=== PATIENT | female | born 1965 | race Caucasian/White ===

== ENCOUNTER → 2017-06-18 10:22 | Outpatient (CLI) | payer BC, SELFPAY ==
--- NOTE | 2017-06-18 10:25 | MM_ITS ---
MM Dig screening mamm BI w/CAD CAD Screening COMPARISON: Digital mammograms 05/26/2016 INDICATION: There is a history of breast cancer in patient's grandmother and mother both diagnosed after menopause TECHNIQUE: Standard CC and MLO images were obtained. R2 CAD reviewed. FINDINGS: Moderate scattered fiber glandular densities are seen in central portions of both breast. There are couple benign-appearing calcifications in both breasts. There is no suspicious lesion and no suspicious microcalcifications.. IMPRESSION: Fibrofatty parenchyma no suspicious lesion seen, recommend yearly follow-up BI-RADS Category: 2 Benign Finding(s) RECOMMENDED FOLLOW-UP: 1YR - 1 YEAR FOLLOW-UP (A letter has been sent to the patient regarding results of the study.)
== END ==
PROVIDERS: Family Provider Nurse Practitioner Family; PCP Nurse Practitioner Family; Visit Provider Nurse Practitioner Family
DX: Z12.31 Encounter for screening mammogram for malignant neoplasm of breast (principal)
CPT/HCPCS: 77067

== ENCOUNTER → 2017-08-02 13:56 | Outpatient (CLI) | payer BC, SELFPAY ==
[2017-08-02 15:33] LABS: Free T4 (Free Thyroxine) 1.33 ng/dl (0.76-1.46)
[2017-08-06 13:27] LABS: Thyroid Peroxidase Antibodies 86 IU/mL (0-34)
[2017-08-06 13:31] LABS: Thyroid Stimulating Immunoglob <0.10 IU/L (0.00-0.55)
== END ==
PROVIDERS: Family Provider Nurse Practitioner Family; PCP Nurse Practitioner Family; Visit Provider Otolaryngology
DX: E03.9 Hypothyroidism, unspecified (principal); E04.9 Nontoxic goiter, unspecified
CPT/HCPCS: 36415; 83520; 84439; 84443; 86376

== ENCOUNTER → 2017-08-10 13:19 | Outpatient (CLI) | payer BC, SELFPAY ==
--- NOTE | 2017-08-10 13:24 | US_ITS ---
US thyroid HISTORY: Follow-up thyroid nodule/goiter ITS.REASON: goiter ORDERING PHYSICIAN: Andrea Ron MD PATIENT AGE: 52 years Comparison: 06/22/2012 FINDINGS: The right lobe is 2.4 x 1.0 x 0.9 cm. 1 cm solid-appearing fairly well-circumscribed nodule in the mid polar region unchanged. The left lobe is 2.8 x 1.0 x 1.1 cm. 7 mm solid appearing nodule superiorly previously measuring 14 mm. IMPRESSION: Bilateral thyroid nodules unchanged on the right and smaller on the left
== END ==
PROVIDERS: Family Provider Nurse Practitioner Family; PCP Nurse Practitioner Family; Visit Provider Otolaryngology
DX: E03.9 Hypothyroidism, unspecified (principal); E04.9 Nontoxic goiter, unspecified
CPT/HCPCS: 76536

== ENCOUNTER → 2017-09-15 11:50 | Outpatient (CLI) | payer BC, SELFPAY ==
[2017-09-15 12:43] LABS: Alanine Aminotransferase 41 U/L (12-78); Albumin Level 4.2 gm/dL (3.4-5.0); Alkaline Phosphatase 88 U/L (46-116); Aspartate Amino Transferase 24 U/L (15-37); Bilirubin,Direct 0.1 mg/dL (0.0-0.2); Bilirubin,Indirect 0.3 mg/dL (0.0-0.9); Bilirubin,Total 0.4 mg/dL (0.2-1.0); Total Protein,Serum 6.9 gm/dL (6.4-8.2)
== END ==
PROVIDERS: Visit Provider Podiatrist
DX: Z79.899 Other long term (current) drug therapy (principal)
CPT/HCPCS: 36415; 80076

== ENCOUNTER → 2018-08-02 13:28 | Outpatient (CLI) | payer BC, SELFPAY ==
--- NOTE | 2018-08-02 13:30 | US_ITS ---
US thyroid HISTORY: ITS.REASON: goiter ORDERING PHYSICIAN: Andrea Ron MD PATIENT AGE: 53 years Comparison: 08/10/2017 FINDINGS: The right lobe measures 2.2 x 1 x 1 cm. There is a 4 mm hypoechoic nodule in the mid aspect of the right lobe. There is generalized heterogeneous echogenicity of the remaining right lobe. The nodule on the right is somewhat smaller when compared to the previous exam The left lobe is 2.9 x 0.9 x 1 cm. There is heterogeneous echogenicity. A 7 x 4 mm nodule is present in the upper pole which is isoechoic not significant change. The isthmus is unremarkable. IMPRESSION: Small bilateral thyroid with heterogeneous echogenicity. There is a stable nodule on the left and the nodule on the right is slightly decreased in size
== END ==
PROVIDERS: PCP Nurse Practitioner Family; Visit Provider Otolaryngology
DX: E04.1 Nontoxic single thyroid nodule (principal); E04.9 Nontoxic goiter, unspecified; E06.9 Thyroiditis, unspecified
CPT/HCPCS: 76536

== ENCOUNTER → 2018-08-08 13:55 | Outpatient (CLI) | payer BC, SELFPAY ==
[2018-08-08 14:42] LABS: Thyroid Stimulating Hormone 2.42 uIU/ml (0.358-3.740)
== END ==
PROVIDERS: Visit Provider Otolaryngology
DX: E04.1 Nontoxic single thyroid nodule (principal); E04.9 Nontoxic goiter, unspecified; E06.9 Thyroiditis, unspecified
CPT/HCPCS: 36415; 84439; 84443

== ENCOUNTER → 2018-09-14 09:54 | Outpatient (CLI) | payer BC, SELFPAY ==
--- NOTE | 2018-09-14 09:58 | MM_ITS ---
MM Dig screening mamm BI w/CAD ORDERING PHYSICIAN : Alissa Dotson APRN PATIENT AGE: 53 years GENDER: Female COMPARISON: May 2017, March 2015 INDICATION: Routine screening mammogram. No hormones. No new complaints. Family history. Mother and maternal grandmother with breast cancer. TECHNIQUE: Standard CC and MLO images were obtained. R2 CAD reviewed. Additional axillary cc views bilaterally. FINDINGS: Moderate breast density with fibroglandular elements most evident retroareolar region extending towards superior breast. Similar pattern to previous studies with no significant new areas of concern. No dominant or suspicious mass. No suspicious calcifications.. No significant change since previous studies listed Bilateral follow-up in one year ...IMPRESSION: ......... Stable bilateral mammogram. Follow-up in one year recommended BI-RADS Category: 1 Negative RECOMMENDED FOLLOW-UP: 1YR 1 YEAR FOLLOW-UP (A letter has been sent to the patient regarding results of the study.)
== END ==
PROVIDERS: PCP Nurse Practitioner Family; Visit Provider Nurse Practitioner Family
DX: Z12.31 Encounter for screening mammogram for malignant neoplasm of breast (principal)
CPT/HCPCS: 77067

== ENCOUNTER 2019-05-03 10:52 | Outpatient (RCR) | payer BC, SELFPAY | END 2019-05-03 11:57 | disposition home or self-care (01) | LOC: PT 10:52 | PROVIDERS: PCP Nurse Practitioner Family; Visit Provider Internal Medicine Rheumatology | DX: M70.61 Trochanteric bursitis, right hip (principal) | CPT/HCPCS: 97010; 97014; 97033; 97110; 97163; G0283 ==

== ENCOUNTER → 2019-08-01 14:23 | Outpatient (CLI) | payer BC, SELFPAY ==
--- NOTE | 2019-08-01 14:24 | US_ITS ---
PROCEDURE: US THYROID CLINICAL INDICATION: goiter Follow-up goiter COMPARISON: THY US thyroid from 08/10/2017 THY US thyroid from 08/02/2018 FINDINGS: Right lobe: 2.4 x 0.8 x 1.1 cm. A 1 x 0.5 cm slightly hypoechoic nodules present in the upper pole a significantly changed from 08/10/2017 Left lobe: 2.9 x 1.1 x 1 cm. 8 mm hypoechoic nodule upper pole unchanged There is bilateral heterogeneous echogenicity of the thyroid gland. Isthmus: Additional findings: IMPRESSION: Heterogeneous echotexture thyroid gland with stable bilateral nodules Dictated by: David Romero MD 08/01/2019 16:14 Electronically signed by David Romero MD in [place] 08/01/2019 16:14
[2019-08-01 17:10] LABS: Free T4 (Free Thyroxine) 1.32 ng/dl (0.78-2.19)
[2019-08-04 17:10] LABS: Thyroid Stimulating Immunoglob <0.10 IU/L (0.00-0.55)
== END ==
PROVIDERS: PCP Nurse Practitioner Family; Visit Provider Otolaryngology
DX: E03.9 Hypothyroidism, unspecified (principal); E04.9 Nontoxic goiter, unspecified
CPT/HCPCS: 36415; 76536; 84439; 84445

== ENCOUNTER → 2019-09-26 16:58 | Outpatient (CLI) | payer BC, SELFPAY ==
--- NOTE | 2019-09-26 17:00 | MM_ITS ---
PROCEDURE: MM DIG SCREENING MAMM BI W/CAD Digital Breast Tomosynthesis Included CLINICAL INDICATION: SCREENING There is a history of breast cancer patient's mother and maternal grandmother both diagnosed after menopause. COMPARISON: MG DMSB DIG MAMM-SCREEN JULIUS W/CAD from 05/26/2016 MG SCBI MM Dig screening mamm BI w/CAD from 06/18/2017 MG DIG MAMM-SCREEN JULIUS from 09/14/2018 TECHNIQUE: Standard CC and MLO images and 3D Tomosynthesis was obtained. R2 CAD reviewed. FINDINGS: Scattered fibroglandular densities are seen throughout both breasts. There are couple of benign-appearing microcalcifications in each breast. There is no new or suspicious lesion in either breast and no suspicious microcalcifications. IMPRESSION: Fibrofatty parenchyma with no suspicious lesions seen BI-RAD Category: 2 Benign Finding(s) FOLLOW-UP: 1YR 1 Year Follow-up (A letter has been sent to the patient regarding results of the study.) Dictated Dr. Richie Zarate MD 09/29/2019 12:21 Dr. Richie Nieves MD in [place] 09/29/2019 12:21
== END ==
PROVIDERS: PCP Nurse Practitioner Family; Visit Provider Nurse Practitioner Family
DX: Z12.31 Encounter for screening mammogram for malignant neoplasm of breast (principal)
CPT/HCPCS: 77063; 77067

== ENCOUNTER → 2019-12-13 17:54 | Outpatient (CLI) | payer BC, SELFPAY ==
--- NOTE | 2019-12-13 18:10 | XR_ITS ---
PROCEDURE: XR FOOT LT MIN 3V CLINICAL INDICATION: Posttraumatic pain COMPARISON: CR FTL3 FOOT-LT-3 VIEWS from 12/01/2016 FINDINGS: There is a nondisplaced fracture involving the mid aspect of the proximal phalanx of the 1st digit . 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 Other findings:None. IMPRESSION: Nondisplaced fracture proximal phalanx 1st digit Dictated by: David Romero MD 12/14/2019 05:31 David Romero MD in [place] 12/14/2019 05:31
== END ==
PROVIDERS: PCP Nurse Practitioner Family; Visit Provider Nurse Practitioner Family
DX: M79.672 Pain in left foot (principal)
CPT/HCPCS: 73630

== ENCOUNTER → 2020-01-22 09:05 | Outpatient (CLI) | payer BC, SELFPAY ==
--- NOTE | 2020-01-22 09:10 | XR_ITS ---
PROCEDURE: XR FOOT WT BEARING LT 3V CLINICAL INDICATION: fracture follow up COMPARISON: CR FTL3 FOOT-LT-3 VIEWS from 12/01/2016 CR XR FOOT LT MIN 3V from 12/13/2019 FINDINGS: There is a nondisplaced comminuted fracture involving the mid shaft of the proximal phalanx of the great toe. Fracture lines are less distinct suggesting healing. There is some developing callus formation noted. IMPRESSION: Healing nondisplaced fracture proximal phalanx great toe Dictated by: David Romero MD 01/22/2020 09:52 David Romero MD in [place] 01/22/2020 09:52
== END ==
PROVIDERS: PCP Nurse Practitioner Family; Visit Provider Podiatrist
DX: S92.412A Displaced fracture of proximal phalanx of left great toe, initial encounter for closed fracture (principal); T14.8XXA Other injury of unspecified body region, initial encounter
CPT/HCPCS: 73630

== ENCOUNTER → 2020-07-31 14:23 | Outpatient (CLI) | payer BC, SELFPAY ==
[2020-07-31 13:00] LABS: Free T4 (Free Thyroxine) 1.98 ng/dl (0.78-2.19)
[2020-07-31 13:14] LABS: Thyroid Stimulating Hormone 0.78 uIU/mL (0.465-4.68)
--- NOTE | 2020-07-31 14:23 | US_ITS ---
PROCEDURE: US THYROID CLINICAL INDICATION: thyroid nodule COMPARISON: US US THYROID from 08/01/2019 FINDINGS: Right lobe: 2.2 x 0.8 x 1.1 cm. There is diffuse heterogeneous echogenicity. 8 x 5 mm hypoechoic area in the mid polar region unchanged. 11 mm mixed nodular appearance in the mid polar region unchanged. Left lobe: 2.8 x 1.1 x 1.1 cm with heterogeneous echogenicity. 8 mm hypoechoic nodule upper pole unchanged Isthmus: Unremarkable Additional findings: IMPRESSION: No change diffuse heterogeneous echogenicity of the thyroid gland which is not enlarged with stable bilateral nodular appearing lesions Dictated by: David Romero MD 07/31/2020 17:50 David Romero MD in [place] 07/31/2020 17:50
[2020-08-01 09:26] LABS: Thyroid Peroxidase Antibodies 61 IU/mL (0-34)
[2020-08-03 09:14] LABS: Thyroid Stimulating Immunoglob <0.10 IU/L (0.00-0.55)
== END ==
PROVIDERS: PCP Nurse Practitioner Family; Visit Provider Otolaryngology
DX: E03.9 Hypothyroidism, unspecified (principal); E04.1 Nontoxic single thyroid nodule
CPT/HCPCS: 76536; 84439; 84443; 84445; 86376

== ENCOUNTER → 2020-10-07 15:25 | Outpatient (CLI) | payer BC, SELFPAY ==
--- NOTE | 2020-10-07 15:28 | MM_ITS ---
PROCEDURE: MM DIG SCREENING MAMM BI W/CAD Digital Breast Tomosynthesis Included CLINICAL INDICATION: SCREENING COMPARISON: MG SCBI MM Dig screening mamm BI w/CAD from 06/18/2017 MG DIG MAMM-SCREEN JULIUS from 09/14/2018 MG MM DIG SCREENING MAMM BI W/CAD from 09/26/2019 TECHNIQUE: Standard CC and MLO images and 3D Tomosynthesis was obtained. R2 CAD reviewed. FINDINGS: Average fibroglandular tissue. Bilateral benign-appearing calcifications. No suspicious appearing mass, malignant-appearing microcalcification, architectural distortion, or skin thickening.. No change IMPRESSION: Benign findings. No evidence of malignancy BI-RAD Category: 2 Benign Finding FOLLOW-UP: 1 YR 1 Year Follow-up (A letter has been sent to the patient regarding results of the study.) Dictated by: David Romero MD 10/11/2020 15:29 David Romero MD in [place] 10/11/2020 15:29
== END ==
PROVIDERS: PCP Nurse Practitioner Family; Visit Provider Nurse Practitioner Family
DX: Z12.31 Encounter for screening mammogram for malignant neoplasm of breast (principal)
CPT/HCPCS: 77063; 77067

== ENCOUNTER → 2021-02-20 12:28 | Outpatient (CLI) | payer BC, SELFPAY | PROVIDERS: Visit Provider Nurse Practitioner | DX: U07.1 COVID-19 (principal) | CPT/HCPCS: C9803; U0003; U0005 ==

== ENCOUNTER → 2021-10-08 16:49 | Outpatient (CLI) | payer BC, SELFPAY ==
--- NOTE | 2021-10-08 16:53 | MM_ITS ---
PROCEDURE INFORMATION: Exam: MG Bilateral Screening 3D Mammography Exam date and time: 10/08/2021 4:45 PM Age: 56 years old Clinical indication: Screening examination; Additional info: Routine screening. Family history of breast carcinoma. TECHNIQUE: Imaging protocol: Bilateral Screening tomosynthesis and 2D mammography including computer-aided detection (CAD) when performed. COMPARISON: 1. MG MM DIG SCREENING MAMM BI W/CAD 10/07/2020 3:37 PM 2. MG MM DIG SCREENING MAMM BI W/CAD 09/26/2019 5:05 PM 3. MG DIG MAMM-SCREEN JULIUS 09/14/2018 10:08 AM FINDINGS: MAMMOGRAPHY: Breast composition: There are scattered areas of fibroglandular density. Mass: No suspicious masses. Architectural distortion: No suspicious distortion. Calcifications: No suspicious calcifications. Asymmetric density: None. Skin thickening: None. Axillary adenopathy: None. IMPRESSION: No mammographic evidence of malignancy. Annual screening is recommended unless otherwise clinically indicated. ASSESSMENT: BI-RADS Category 1: Negative
== END ==
PROVIDERS: PCP Nurse Practitioner Family; Visit Provider Nurse Practitioner Family
DX: Z12.31 Encounter for screening mammogram for malignant neoplasm of breast (principal)
CPT/HCPCS: 77063; 77067

== ENCOUNTER → 2022-08-12 15:23 | Outpatient (CLI) | payer BC, SELFPAY ==
[2022-08-12 17:23] LABS: Free T4 (Free Thyroxine) 2.09 ng/dl (0.78-2.19)
[2022-08-12 17:37] LABS: Thyroid Stimulating Hormone 0.49 uIU/mL (0.465-4.68)
== END ==
PROVIDERS: PCP Nurse Practitioner Family; Visit Provider Student in an Organized Health Care Education/Training Program
DX: E03.9 Hypothyroidism, unspecified (principal); E04.2 Nontoxic multinodular goiter
CPT/HCPCS: 36415; 84439; 84443

== ENCOUNTER → 2022-09-03 15:59 | Outpatient (CLI) | payer BC, SELFPAY ==
--- NOTE | 2022-09-03 15:59 | US_ITS ---
FINAL REPORT TECHNIQUE: Limited sonographic images of the thyroid were obtained. CLINICAL HISTORY: multiple thryoid nodules and hypothyroidism COMPARISON: 07/31/2020 FINDINGS: US THYROID/HEAD OR NECK SOFT TISSUE The thyroid gland is small with decreased blood flow, may be related to chronic thyroiditis. The right lobe of the thyroid measures 2.2 x 0.7 x 1.1 cm. There is a solid, hypoechoic nodule measuring 6 x 6 x 4 mm consistent with TI-RADS category 4. The left lobe of the thyroid measures 2.6 x 0.9 x 1.1 cm. There is a solid, hypoechoic nodule measuring 7 x 5 x 5 mm consistent with TI-RADS category 4. IMPRESSION: Findings may be rate dated to chronic thyroiditis. Bilateral thyroid nodules, similar to previous. No follow-up is required. Reviewed, Interpreted and Dictated by Sebastián Tinoco III, MD Transcribed by Marlene Rowland Authenticated and [facility]
== END ==
LOC: RAD 15:59
PROVIDERS: PCP Nurse Practitioner Family; Visit Provider Student in an Organized Health Care Education/Training Program
DX: E03.9 Hypothyroidism, unspecified (principal); E04.2 Nontoxic multinodular goiter
CPT/HCPCS: 76536

== ENCOUNTER → 2022-11-04 16:23 | Outpatient (CLI) | payer BC, SELFPAY ==
--- NOTE | 2022-11-04 16:27 | MM_ITS ---
PROCEDURE INFORMATION: Exam: MG Bilateral Screening 3D Mammography Exam date and time: 11/04/2022 4:16 PM Age: 57 years old Clinical indication: Screening mammogram TECHNIQUE: Imaging protocol: Bilateral Screening tomosynthesis and 2D mammography including computer-aided detection (CAD) when performed. COMPARISON: 1. MG MM DIG SCREENING MAMM BI W/CAD 10/08/2021 4:45 PM 2. MG MM DIG SCREENING MAMM BI W/CAD 10/07/2020 3:37 PM 3. MG MM DIG SCREENING MAMM BI W/CAD 09/26/2019 5:05 PM 4. MG DIG MAMM-SCREEN JULIUS 09/14/2018 10:08 AM FINDINGS: MAMMOGRAPHY: Breast composition: There are scattered areas of fibroglandular density. Mass: None. Architectural distortion: No new or suspicious architectural distortion. Calcifications: No new or suspicious calcifications are present Asymmetric density: No new or suspicious asymmetric density is present Skin thickening: None. Axillary adenopathy: None. IMPRESSION: No mammographic evidence of malignancy. Recommend annual screening mammography unless otherwise clinically indicated. ASSESSMENT: BI-RADS category 1: Negative
== END ==
PROVIDERS: PCP Nurse Practitioner Family; Visit Provider Nurse Practitioner Family
DX: Z12.31 Encounter for screening mammogram for malignant neoplasm of breast (principal)
CPT/HCPCS: 77063; 77067

== ENCOUNTER 2023-09-09 15:22 | Outpatient (CLI) | payer BC, SELFPAY ==
--- NOTE | 2023-09-09 15:22 | US_ITS ---
FINAL REPORT TECHNIQUE: Sonographic images of the thyroid gland were obtained in the longitudinal and transverse planes. CLINICAL HISTORY: thyroid nodule COMPARISON: 09/03/2022 FINDINGS: The right lobe measures 2.4 cm. The right lobe is homogeneous. The nodule in the right lobe seen on the prior exam of 2022, hypoechoic, is slightly smaller. On today's exam this nodule measures 5 x 5 mm in size, previously measured 6 x 6 mm in size. The left lobe measures 2.2 cm. The left lobe is homogeneous. The nodule seen on the prior ultrasound of 2022 is no longer visualized. The isthmus measures 1 mm. This is normal. IMPRESSION: 1. TIRADS category 4 nodule in the right lobe, 5 x 5 mm in size, slightly smaller than that seen on the prior ultrasound of August 2022. Based on size, there are no current recommendations regarding follow up. 2. Previously seen nodule in the left lobe on the prior ultrasound is no longer visualized. Reviewed, Interpreted and Dictated by Jennifer Valadez MD Transcribed by Rosy Carrillo Authenticated and [facility]
[2023-09-09 17:33] LABS: Free T4 (Free Thyroxine) 1.91 ng/dl (0.78-2.19)
[2023-09-09 17:49] LABS: Thyroid Stimulating Hormone 0.47 uIU/mL (0.465-4.68)
== END 2023-09-09 23:59 | disposition home or self-care (01) ==
LOC: RAD 15:22
PROVIDERS: PCP Nurse Practitioner Family; Visit Provider Nurse Practitioner
DX: E04.2 Nontoxic multinodular goiter (principal); E03.9 Hypothyroidism, unspecified
CPT/HCPCS: 36415; 76536; 84439; 84443

== ENCOUNTER 2023-12-14 16:44 | Outpatient (CLI) | payer BC, SELFPAY ==
--- NOTE | 2023-12-14 16:48 | MM_ITS ---
PROCEDURE INFORMATION: Exam: MG Bilateral Screening 3D Mammography Exam date and time: 12/14/2023 4:33 PM Age: 58 years old Clinical indication: Screening examination TECHNIQUE: Imaging protocol: Bilateral Screening tomosynthesis and 2D mammography including computer-aided detection (CAD) when performed. COMPARISON: 1. MG MM DIG SCREENING MAMM BI W/CAD 11/04/2022 4:16 PM 2. MG MM DIG SCREENING MAMM BI W/CAD 10/08/2021 4:45 PM FINDINGS: MAMMOGRAPHY: Breast composition: There are scattered areas of fibroglandular density. Mass: None. Architectural distortion: None. Calcifications: No suspicious calcifications. Asymmetric density: None. Skin thickening: None. Axillary adenopathy: None. IMPRESSION: No mammographic evidence of malignancy. Annual screening is recommended unless otherwise clinically indicated. ASSESSMENT: BI-RADS Category 1: Negative.
== END 2023-12-14 23:59 | disposition home or self-care (01) ==
LOC: RAD 16:45
PROVIDERS: PCP Nurse Practitioner Family; Visit Provider Nurse Practitioner Family
DX: Z12.31 Encounter for screening mammogram for malignant neoplasm of breast (principal)
CPT/HCPCS: 77063; 77067

== ENCOUNTER 2024-07-06 13:06 | Outpatient (CLI) | payer BC, SELFPAY ==
--- OUTSIDE RECORDS SUMMARY | 2024-07-06 13:09 | XMS_ITS | Data Portability ---
Author Organization [facility] Paulina kirk, [facility] [place] CLOS[facility] Address [address] [facility] [facility] [address] [place] [address] Care Team Providers Care Dip Dyer Name Role Phone MANJULA ELAM Referring Provider [phone] TROY WEST Advanced Practice Rn ERNESTINE MALHOTRA Primary Care Provider [phone] MANJULA ELAM Transfer Machine Operator ERNESTINE MALHOTRA Referring Provider Assessment No assessment recorded. Plan of Treatment Reminders Order Date Submit Date Provider Last Modified By Organization Details Last Modified Time Details Appointments RHEUM RECHECK 2024 04:00P M MANJULA ELAM MD Not available Not available Not available Lab surgical pathology study 2023 [facility], [address] [place] [address], [address], 01/19/2024 10:46:27 Referral None recorded. Procedures None recorded. Surgeries None recorded. Imaging None recorded. Medication Orders hydroxych loroquine 200 mg tablet 2023 024 [id number], [address] [place], [address], 10/19/2023 15:40:05 hydroxych loroquine 200 mg tablet 2023 024 [id number], [address] [place], [address], 04/20/2023 14:34:12 Patient TargetsNo targets recorded. Patient InstructionsNo instructions recorded. Reason for Referral None Reported. Results Created Date Observation Date Name Description Value Unit Range Abnormal Flag Note LastModifiedBy Organization Detail LastModifiedTime 01/17/20 24 01/17/2024 SURGI ROEL surgical SEE BELOW [place]ak topat holog y Repor t NAME: LEONID HUMPHREY PATH: [id number] -[id number] [id number] PROCE DURE DATE: 01/16 SIGNO UT DATE: 01/18 Copy to: Diagn osis: A: Left Media l Calf - POROK ERATO SIS B: Right Achil les - POROK ERATO SIS SOURC E OF SPECI MEN: 1) SKIN, L MEDIA L CALF 2) SKIN, R ACHIL LES CLINI ROEL INFOR MATIO N: A: R/O: POROK ERATO SIS VS AK VS SK. B: R/O: POROK ERATO SIS VS AK VS SK. Gross Descr iptio n: A: The speci men consi sted of a quinn fragm ent which was trise cted and measu red 10 x 6 x 1 mm. All submi tted in one casse tte. B: The speci men consi sted of a quinn fragm ent which was trise cted and measu red 9 x 8 x < 1 mm. All submi tted in one casse tte. Micro scopi c Descr iptio n: A: The epide rmis is atrop hic. At the later al edges is a colum n of dyske ratos is and parak erato sis. Withi n the super ficia l dermi s is a lymph ocyti c, focal ly liche noid infla mmato ry infil trate . B: The epide rmis is atrop hic. At the later al edges is a colum n of dyske ratos is and parak erato sis. Withi n the super ficia l dermi s is a lymph ocyti c, focal ly liche noid infla mmato ry infil trate . OLEGARIO BLOCK MD Gretchen d Out Date: 01/18 10:46 1 Not Available [facility], [place], [address], 01/19/2024 10:46:27 03/01/19 24 03/01/2023 optic al coher ence tomog alondra, retin a No observ ation record ed. [email or web address] Not Available 2023 08:39:02 03/02/19 24 03/01/2023 intra ocula r lens biome try No observ ation record ed. BARCODE Not Available 2023 13:29:49 03/05/19 24 03/01/2023 visua l field test No observ ation record ed. BARCODE Not Available 2023 12:26:34 Result Notes None recorded. Problems Name Problem SNOMED Code Status Onset Date Resolution Date Notes Provider Name and Address Organization Details Recorded Time [facility]94798 [facility] Rheumatoid [facility] 03664243 [facility] 14:24:35 Problem Notes Documentation Provider Name and Address Organization Details Recorded Time Advanced Practice Rn Consult Note : [facility] ? ? [address] [facility] [address]PFSXJBonnie HUMPHREY (id #[id number], : 1965) [facility] [address] [place] Phone:?? Fax:?? Encounter Summary - Progress Note Date Printed: ?03/01/2023 Documents sent via fax will include the followingmessage: This fax may contain sensitive and confidential personal health information that is being sent for the sole use of the intended recipient. Unintended recipients are directed to securely destroy any materials received. You are hereby notified that the unauthorized disclosure or other unlawful use of this fax or any personal health information is prohibited. To the extent patient information contained in this fax is subject to 42 CFR Part 2, this regulation prohibits unauthorized disclosure of these records. If you received this fax in error, please visit [email or web address] to notify the sender and confirm that the information will be destroyed. If you do not have internet access, please call to notify the sender and confirm that the information will be destroyed. Thank you for your attention and cooperation. [ID:[id number]] Patient Bonnie Humphrey (57yo, F) #[id number] 1965 ?? Patient Demographics: Address [address] [facility] [place] [address] ? Work Phone ?? Encounter Notes: Encounter Reason/Date complete eye exam, Plaquenil Check 57 y/o wf on Plaquenil returns complete eye exam No va complaints or changes. Got new glasses last time-happy with va. Plaquenil 200 mg bid qod, 1 tablet qod No eye surgery, laser, lasik or trauma Gtts: none cjg occ blurring viision shaista x 6 years 30mg/day wt - 153 347mg/day max 03/01/2023 - 02:00PM - [facility] History of Present IllnessNone recorded Review of Systems Patient reports no difficulty hearing. She reports no neurological symptoms reported. She reports no cardiovascular symptoms. She reports no systemic symptoms. She reports no myalgia, no arthralgia, and no back pain. She reports no cough, no wheezing, and no sleep apnea. She reports no allergy symptoms, no sinus pressure, and no itching. She reports no proptosis and no muscle weakness. She reports no bleeding tendency. She reports no past flomax usage. VitalsNone recorded Results/InterpretationsNone recorded Physical ExamExternal Exam:General Appearance normal. Face: normal. Lids: normal. Pupils normal. Muscle Balance Testing: normal. EOM: normal. Visual Morris Exam normal to count fingers OU;see hvf see today's hvf . Slit Lamp Exam:Lids normal. Conjunctiva: normal. Cornea: normal. Anterior Chamber: normal. Iris: normal. Lens: normal. Fundus Exam:Vitreous: normal. Disc C/D Ratio normal, OD: 0.3, and OS: 0.3. Retinal Vessels normal. Macula: normal. Peripheral Retina normal. Psychiatric:Orientation: oriented to time, place, and person. Mental Status: affect normal. Procedure DocumentationOCT/Retina:Optic al Coherence Testing (OCT) of retina performed. See scanned document for detail.Visual Field Extended:Extended visual field examination performed. See scanned report for findings. Assessment and Plan1. 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 Return to Office to see TROY WEST MD for LEVEL 2 at OPHTHALMOLOGY [facility] on or around 03/01/2024 Patient Medical History: Allergies List Reviewed Allergies CODEINE Medications Reviewed Medications NameDate Source buPROPion HCL SR 100 mg tablet,12 hr sustained-releaseTAKE 1 TABLET BY MOUTH EVERY DAY05/05/22?filled surescripts diclofenac potassium 50 mg tabletTAKE 1 TABLET BY MOUTH THREE TIMES A DAY06/30/22?filled surescripts hydroxychloroquine 200 mg tablettake as baloolcu33/03/23?filled surescripts levothyroxine 112 mcg tabletTAKE 1 TABLET BY MOUTH DAILY05/25/22?filled surescripts simvastatin 20 mg tabletTAKE 1 TABLET BY MOUTH EVERY DAY06/26/22?filled surescripts Family HistoryReviewed Family History Mother - Cataract ?? - Age related macular degeneration - dry Past Medical HistoryReviewed Past Medical History Glasses/Contacts:Y Vaccine HistoryVaccines not reviewed (last reviewed 01/12/2022) Vaccine Type Date Amt. Route Site NDC Lot??# Mfr. Exp. Date VIS VIS Given Pattern Chain Builder COVID-19 COVID-19, mRNA, LNP-S, PF, 30 mcg/0.3 mL dose ([employer]) 06/21/20 0.3 mL [id number] Other education nurse COVID-19, mRNA, LNP-S, PF, 30 mcg/0.3 mL dose ([employer]) 05/31/20 0.3 mL [id number] Other education nurse Electronically Signed by: TROY WEST MD MANJULA MARILEE ELAM MD [address] [place], [address], [facility] 03/04/2023 15:04:40 Rheumatology Note : [facility] ? ? [address] [facility] [id number], Polly (Legal name: Bonnie Humphrey) (id #[id number], : 1965) [facility] [address] [facility],??[place]?[address] Phone:?? Fax:?? Encounter Summary - Progress Note Date Printed: ?04/20/2023 Documents sent via fax will include the followingmessage: This fax may contain sensitive and confidential personal health information that is being sent for the sole use of the intended recipient. Unintended recipients are directed to securely destroy any materials received. You are hereby notified that the unauthorized disclosure or other unlawful use of this fax or any personal health information is prohibited. To the extent patient information contained in this fax is subject to 42 CFR Part 2, this regulation prohibits unauthorized disclosure of these records. If you received this fax in error, please visit [email or web address] to notify the sender and confirm that the information will be destroyed. If you do not have internet access, please call to notify the sender and confirm that the information will be destroyed. Thank you for your attention and cooperation. [ID:[id number]] Patient Bonnie Humphrey (57yo, F) #[id number] 1965 ?? Patient Demographics: [address] [place] [address] ? Work Phone ?? Encounter Notes: Encounter Reason/Date recheck 04/20/2023 - 02:15PM - RHEUMATOLOGY [facility] History of Present Kyhvuvq94-cswd-end with degenerative arthritis and seronegative inflammatory arthritis. Leonid was last seen here in our rheumatology department 01/12/2022 She is on low-dose diclofenac twice a day only as needed along with hydroxychloroquine 400 mg alternate with 200 mg every other day In general has done very well. No acute complaints. Participating in normal activities. Review of SystemsAdditionally reports:COVID Questionnaire 1. Have you or anyone accompanying you today been diagnosed with CoVid-19 in the past 5 days?? Patient: NO Visitor:____ 2. In the last 3 days have you and/or anyone with you today had COVID symptoms? (cough, fever, muscle aches, loss of taste or smell, vomiting, diarrhea, headache, sore throat, or congestion/runny nose) Patient: NO Visitor:____ 3. Have you and/or anyone accompanying you today been in close contact with a person known to have COVID-19/Coronavirus in the past 5 days? Patient: NO Visitor:____ If answered YES to any of the questions above. Notify provider/service dept. of arrival. Await instructions from provider's office. ROS as noted in the HPI Vitals Ht: 5 ft 5 in Yhjatb2804/20/2023 02:28 pm Wt: 152 lbs 8 oz With gqbthou4104/20/2023 02:28 pm BMI: 25. 02:28 pm BP: 120/78 sitting R arm04/20/2023 02:30 pm BP Cuff Size: adult04/20/2023 02:29 pm Pulse: 52 bpm aibprkh5404/20/2023 02:30 pm RR: 1602 02:29 pm O2Sat: 99% Room Air at Rest04/20/2023 02:30 pm Results/InterpretationsNone recorded Physical ExamConstitutional:General Appearance: healthy-appearing, well-nourished, and well-developed. Level of Distress: NAD. Ambulation: ambulating normally and normal tandem gait test. Mental Status:Mental Status: normal mood and affect and active and alert. Orientation: to time, place, and person. Lungs:Respiration: no dyspnea and good air movement. Percussion: no dullness, flatness, or hyperresonance. Auscultation: no wheezing, rales/crackles, or rhonchi and breath sounds normal and CTA except as noted. Cardiovascular System:Apical Impulse: not displaced. Heart Auscultation: normal S1 and S2; no murmurs, rubs, or gallops; and RRR. Neck vessels: no JVD. Pulses including femoral / pedal: normal throughout. Musculoskeletal System:Joints, Bones, and Muscles: normal movement of all extremities;Stable. Extremities: no edema (Stable). Procedure DocumentationNone recorded Assessment and Plan1. Body mass index 25-29 - overweight- she is doing very well. Working on her diet and exercise most recent BMI is 26.1Z68.26: Body mass index [BMI] 26.0-26.9, adult 2. Degenerative joint disease involving multiple joints- Generalized osteoarthritis. Has done very well. She has maintain good physical activity, exercise and weight loss program. Suggested to maintain the use of diclofenac 50 mg twice a day with meals as needed. Maintain low-carb diet. Encouraged fruits and vegetables intake and restrict red meat. Refills given. M15.9: Polyosteoarthritis, unspecified 3. Seronegative rheumatoid arthritis- 57-year-old with seronegative rheumatoid arthritis and clinically stable.She is doing very well. No active synovitis or effusion. Range of motion is intact. Strength is physiologic. Continue with hydroxychloroquine 400 mg alternate with 200 mg every other day. Suggested to follow-up with an eye examination every 12 months. Refills given. follow up in the fall of 2023 M06.00: Rheumatoid arthritis without rheumatoid factor, unspecified site hydroxychloroquine 200 mg tablet - take as directed ? Qty: (90)?tablet ? Refills: 5 ? Pharmacy: [id number] ? Note to Pharmacy: 400mg alternate with 200 mg qod. 4. Long-term drug therapy- obtain labs to follow all the current medications. 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) drug therapy Return to Office MANJULA ELAM MD for RHEUM RECHECK at RHEUMATOLOGY on 10/19/2023 at 04:00 PM TROY WEST MD for LEVEL 2 at OPHTHALMOLOGY [facility] on 03/03/2024 at 01:15 PM OPHTH_VISUAL_FIELDS for VISUAL FIELD at OPHTHALMOLOGY [facility] on 03/03/2024 at 01:00 PM Patient Medical History: Allergies List Reviewed Allergies CODEINE Medications Reviewed Medications NameDate Source buPROPion HCL SR 100 mg tablet,12 hr sustained-releaseTAKE 1 TABLET BY MOUTH EVERY DAY03/17/23?filled surescripts diclofenac potassium 50 mg tabletTAKE 1 TABLET BY MOUTH THREE TIMES A DAY06/30/22?filled surescripts hydroxychloroquine 200 mg tablettake as /27/24?prescri bed MANJULA ELAM MD levothyroxine 112 mcg tabletTAKE 1 TABLET BY MOUTH DAILY02/10/23?filled surescripts simvastatin 20 mg tabletTAKE 1 TABLET BY MOUTH EVERY DAY03/17/23?filled surescripts Family HistoryReviewed Family History Mother - Cataract ?? - Age related macular degeneration - dry Past Medical HistoryReviewed Past Medical History Arthritis:Y Vaccine HistoryReviewed Vaccines Vaccine Type Date Amt. Route Site NDC Lot??# Mfr. Exp. Date VIS VIS Given Pattern Chain Builder COVID-19 COVID-19, mRNA, LNP-S, PF, 30 mcg/0.3 mL dose ([employer]) 06/21/20 0.3 mL [id number] Other education nurse COVID-19, mRNA, LNP-S, PF, 30 mcg/0.3 mL dose ([employer]) 05/31/20 0.3 mL [id number] Other education nurse Electronically Signed by: MANJULA ELAM MD MANJULA ELAM MD [address] [place] [address], [phone], [facility] 04/21/2023 08:25:20 Rheumatology Note : [facility] ? ? [address] [place] [id number], Polly (Legal name: Bonnie Humphrey) (id #[id number], : 1965) [facility] [address] [place] [address],[place]?[address] Phone:?? Fax:?? Encounter Summary - Progress Note Date Printed: ?10/19/2023 Documents sent via fax will include the followingmessage: This fax may contain sensitive and confidential personal health information that is being sent for the sole use of the intended recipient. Unintended recipients are directed to securely destroy any materials received. You are hereby notified that the unauthorized disclosure or other unlawful use of this fax or any personal health information is prohibited. To the extent patient information contained in this fax is subject to 42 CFR Part 2, this regulation prohibits unauthorized disclosure of these records. If you received this fax in error, please visit [email or web address] to notify the sender and confirm that the information will be destroyed. If you do not have internet access, please call to notify the sender and confirm that the information will be destroyed. Thank you for your attention and cooperation. [ID:[id number]] Patient Bonnie Humphrey (58yo, F) #[id number] 1965 ?? Patient Demographics: Address [address] [place] [address] [place] [address] ? Work Phone ?? Encounter Notes: Encounter Reason/Date 6 month recheck 10/19/2023 - 04:00PM - RHEUMATOLOGY SB History of Present Qyjgkty41-zzzq-aid with degenerative arthritis and seronegative inflammatory arthritis. Leonid was last seen here in our rheumatology department 04/20/23. Only complaint is thinks her carpal tunnel is returning. She will use a carpal tunnel brace. She is on low-dose diclofenac twice a day only as needed along with hydroxychloroquine 400 mg alternate with 200 mg every other day In general has done very well. No acute complaints. Participating in normal activities. Review of SystemsROS as noted in the HPI Vitals Ht: 5 ft 5 in Eauyfs0710/19/2023 03:32 pm Wt: 156 lbs 4 oz With zxixyju3410/19/2023 03:32 pm BMI: 2608 03:32 pm BP: 110/78 sitting R arm10/19/2023 03:34 pm BP Cuff Size: adult10/19/2023 03:33 pm Pulse: 64 bpm itpzjbf5010/19/2023 03:33 pm RR: 1608 03:33 pm O2Sat: 97% Room Air at Rest10/19/2023 03:33 pm Results/InterpretationsNone recorded Physical ExamConstitutional:General Appearance: healthy-appearing, well-nourished, and well-developed. Level of Distress: NAD. Ambulation: ambulating normally and normal tandem gait test. Mental Status:Mental Status: normal mood and affect and active and alert. Orientation: to time, place, and person. Lungs:Respiration: no dyspnea and good air movement. Percussion: no dullness, flatness, or hyperresonance. Auscultation: no wheezing, rales/crackles, or rhonchi and breath sounds normal and CTA except as noted. Cardiovascular System:Apical Impulse: not displaced. Heart Auscultation: normal S1 and S2; no murmurs, rubs, or gallops; and RRR. Neck vessels: no JVD. Pulses including femoral / pedal: normal throughout. Musculoskeletal System:Joints, Bones, and Muscles: normal movement of all extremities;Stable. Extremities: no edema (Stable). Procedure DocumentationNone recorded Assessment and Plan1. Body mass index 25-29 - overweight- she is doing very well. Working on her diet and exercise most recent BMI is 26.1Z68.26: Body mass index [BMI] 26.0-26.9, adult 2. Degenerative joint disease involving multiple joints- Generalized osteoarthritis. Has done very well. She has maintain good physical activity, exercise and weight loss program. Suggested to maintain the use of diclofenac 50 mg twice a day with meals as needed. Maintain low-carb diet. Encouraged fruits and vegetables intake and restrict red meat. Refills given. M15.9: Polyosteoarthritis, unspecified 3. Seronegative rheumatoid arthritis- 58-year-old with seronegative rheumatoid arthritis and clinically stable.She is doing very well. No active synovitis or effusion. Range of motion is intact. Strength is physiologic. Continue with hydroxychloroquine 400 mg alternate with 200 mg every other day. Suggested to follow-up with an eye examination every 12 months. Refills given. follow up in the fall of 2023 M06.00: Rheumatoid arthritis without rheumatoid factor, unspecified site hydroxychloroquine 200 mg tablet - take as directed ? Qty: (135)?tablet ? Refills: 3 ? Pharmacy: [id number] ? Note to Pharmacy: 400mg alternate with 200 mg qod. 4. Long-term drug therapy- obtain labs to follow all the current medications. Needs eye examination to follow up on hydroxychloroquine, she will schedule the eye examination on her birthday month.Z79.899: Other penitentiary (current) drug therapy 5. Bilateral carpal tunnel syndrome-Clinical evidence of carpal tunnel syndrome. Suggested use of cock-up wrist braces at night for 6 weeks. Reassess if it still symptomatic obtain nerve conduction studies.G56.03: Carpal tunnel syndrome, bilateral upper limbs Return to Office BRUCE FIGUEROA PA-C for NEW PATIENT DAK at [facility] on 11/18/2023 at 09:30 AM TROY WEST MD for LEVEL 2 at OPHTHALMOLOGY [facility] on 03/03/2024 at 01:15 PM OPHTH_VISUAL_FIELDS for VISUAL FIELD at OPHTHALMOLOGY [facility] on 03/03/2024 at 01:00 PM MANJULA ELAM MD for RHEUM RECHECK at RHEUMATOLOGY on 10/19/2024 at 04:00 PM Patient Medical History: Allergies List Reviewed Allergies CODEINE Medications Reviewed Medications NameDate Source buPROPion HCL SR 100 mg tablet,12 hr sustained-releaseTAKE 1 TABLET BY MOUTH EVERY DAY09/10/23?filled surescripts busPIRone 10 mg giyfar55/22/24?filled surescripts diclofenac potassium 50 mg tabletTAKE 1 TABLET BY MOUTH THREE TIMES A DAY WITH FOOD JKPXLU16/17/24?filled surescripts estradioL 0.01% (0.1 mg/gram) vaginal cream08/09/23?filled surescripts hydroxychloroquine 200 mg tablettake as hurpwqxb69/27/24?prescri [facility] MANJULA ELAM MD levothyroxine 112 mcg tabletTAKE 1 TABLET BY MOUTH DAILY08/07/23?filled surescripts simvastatin 20 mg tabletTAKE 1 TABLET BY MOUTH EVERY DAY09/10/23?filled surescripts valsartan 40 mg guyhol51/22/24?filled surescripts Family HistoryReviewed Family History Mother - Cataract ?? - Age related macular degeneration - dry Past Medical HistoryReviewed Past Medical History Arthritis:Y Vaccine HistoryReviewed Vaccines Vaccine Type Date Amt. Route Site NDC Lot??# Mfr. Exp. Date VIS VIS Given Pattern Chain Builder COVID-19 COVID-19, mRNA, LNP-S, PF, 30 mcg/0.3 mL dose ([employer]) 06/21/20 0.3 mL [id number] Other education nurse COVID-19, mRNA, LNP-S, PF, 30 mcg/0.3 mL dose ([employer]) 05/31/20 0.3 mL [id number] Other education nurse Electronically Signed by: MANJULA ELAM MD MANJULA ELAM MD [address] [place], [address], [facility] 10/25/2023 15:30:03 Director Of Alumni Relations Consult Note : [facility] ? ? [address] [facility] [address]AFLMJ, Polly (Legal name: Bonnie Humphrey) (id #[id number], : 1965) [facility] [address] [place] [address] Date: 4RE: Bonnie Humphrey, : 1965, PT ID #[id number] Elam MD, I would like to thank you for referring Bonnie Humphrey to our practice for consultation and evaluation. I have enclosed a copy of the office evaluation for your records. Sincerely, Electronically Signed by: BRUCE FIGUEROA PA-C, Guillermina Reason/Date skin lesion 11/18/2023 - 09:30AM - [facility] History of Present IllnessI have spots of concernLocation: face, arms. legsReports: dry, rough spots. Spot on nose keeps flaking off and coming back No history of skin cancerNew patientReview of SystemsROS as noted in the HPIPhysical Exam1. Erythematous scaly macules - nose x1, right forearm x2 , right thigh x1, left hand x1, left forearm x3, left foot x1, left martinez [id number] DocumentationDAK - Cryo AK:Destruction Premalignant Lesions: Patient verbally agreed to have lesions treated and understands the risk of scarring and dyspigmentation with the procedure. 11 actinic keratoses were treated today with liquid nitrogen. Patient tolerated the procedure well.Assessment/Plan1. Actinic keratosis-Precancerous lesion(s).Will LN2 today.Can leave a white discoloration in the areas when LN2 is performed.Discussed biopsying lesions if they do not resolve after SQ2Kyydyc-om if lesion(s) persists or do not resolve. Follow up in 2 months for a recheck.L57.0: Actinic keratosis Return to Office BRUCE FIGUEROA PA-C for PROVIDER APPROVED DAK at [facility] on 01/17/2024 at 03:20 PM TROY WEST MD for LEVEL 2 at OPHTHALMOLOGY [facility] on 03/03/2024 at 01:15 PM OPHTH_VISUAL_FIELDS for VISUAL FIELD at OPHTHALMOLOGY [facility] on 03/03/2024 at 01:00 PM MANJULA ELAM MD for RHEUM RECHECK at RHEUMATOLOGY on 10/19/2024 at 04:00 PM MANJULA ELAM MD [address] [place] [address], [phone], [facility] 11/23/2023 11:56:42 Director Of Alumni Relations Consult Note : [facility] ? ? [address] [facility] [id number], Polly (Legal name: Bonnie Humphrey) (id #[id number], : 1965) DERMATOLOGY [place] [address] [place] [address] Date: 4RE: Bonnie Humphrey, : 1965, PT ID #[id number] Marilee Elam MD, I would like to thank you for referring Bonnie Humphrey to our practice for consultation and evaluation. I have enclosed a copy of the office evaluation for your records. Sincerely, Electronically Signed by: BRUCE FIGUEROA PA-C, PASUPEncounter Reason/Date actinic keratosis 01/17/2024 - 03:20PM - [facility] History of Present IllnessI am following up with AK'sLocation: face, arms, legsTx: [id number]: Spot on L foot and bilateral lower legs need refrozen, Spots on arms and face have no returned.Review of SystemsROS as noted in the HPIPhysical Exam1. 7mm pink papule - left medial awro1np pink papule - right [id number] pink scaly macules - arms, legs, feetProcedure DocumentationDAK - Biopsy, Tangential:Tangential Biopsy: 1st Lesion Location: left medial calf 2nd Lesion Location: rigth achilles After risks and benefits were discussed, verbal informed consent was obtained. Patient understands the risks of scarring and dyspigmentation with the procedure. Patient information was confirmed. Biopsy area was cleaned and prepped with alcohol. Adequate anesthesia was achieved using lidocaine 0.5% with epinephrine 1:200,000. The biopsy/biopsies were taken with a razor blade. The specimen(s) were sent to pathology in formalin. Hemostasis was obtained. Patient tolerated the procedure well. Petrolatum ointment and a bandage were applied. Wound care instructions were given.Assessment/Plan1. Neoplasm of uncertain behavior of skin-Biopsies recommended today.- Verbal consent given by patient. Disc pain, scar, bleeding, infection and possible need for more treatment. Disc specimen will be sent to pathology- Written wound instructions were provided to patient.- Patient was told that they should receive results in 2 weeks via portal or telephone.- If they have not received results in two weeks, they were instructed to call. Discussed treatment options for AKs and porokeratoses.Will discuss treatments further pending biopsy results.D48.5: Neoplasm of uncertain behavior of skin SURGICAL PATHOLOGY - ?Specimen source: SKIN Specimen 1: Left Medial Calf R/O: Porokeratosis vs AK vs SK Specimen 2: Right Achilles R/O: Porokeratosis vs AK vs SK Return to Office TROY WEST MD for LEVEL 2 at [facility] on 03/03/2024 at 01:15 PM OPHTH_VISUAL_FIELDS for VISUAL FIELD at OPHTHALMOLOGY [facility] on 03/03/2024 at 01:00 PM MANJULA ELAM MD for RHEUM RECHECK at RHEUMATOLOGY on 10/19/2024 at 04:00 PM MANJULA ELAM MD [address] [place] [address], [phone], [facility] 01/21/2024 11:24:17 Procedures Surgical History Date Name Laterality Status Provider Name and Address Organization Details Recorded Time 024 DAK - Biopsy, Tangential completed [facility] 01/17/2024 16:00:09 024 DAK - Cryo AK completed [facility] 11/18/2023 10:36:03 024 OCT/Retina completed TROY WEST MD [address] [place] [address], [phone], [facility] 03/01/2023 15:25:28 024 Visual Field Extended completed TROY WEST MD [address] [place] [address], [phone], [facility] 03/01/2023 15:25:30 023 OCT/Retina completed TROY WEST MD [address] [place] [address], [phone], [facility] 02/26/2022 10:29:26 023 Visual Field Extended completed TROY WEST MD [address] [place] [address], [phone], [facility] 02/26/2022 10:29:27 021 OCT/Retina completed TROY WEST MD [address] [place] [address], [phone], [facility] 06/28/2020 15:11:00 021 Visual Field Extended completed TROY WEST MD [address] [place], [phone], [facility] 06/28/2020 15:11:02 021 Electromyography (EMG) with Nerve Conduction Study (NCV) completed Yumiko Corley (Nicky) [facility] 2020 11:11:14 Carpal tunnel surgery completed Daija Baugh [facility] 05/10/2017 10:43:16 Removal of tonsils completed Daija molina [facility] 05/10/2017 10:43:25 Imaging Results Imaging Date Name Status LastModified by Organiz ation Details LastModified Time 03/01/2023 optical coherence tomogram, retina completed [email or web address] Information not available 03/03/2023 08:39:02 03/01/2023 intraocular lens biometry completed [facility] Information not available 03/02/2023 13:29:49 03/01/2023 visual field test completed [facility] Information not available 03/05/2023 12:26:34 Procedure Notes None recorded. Medical Equipment None Reported. Allergies Allergen ID Allergen Name Allergen Category Reaction Reaction Severity Criticality Documentation Date Start Date Code Code System Note Provider Name and Address Organization Details Recorded Time 689876 codeine medicatio n Not available Not available Not available 02/18/2016 2670 RxNorm Mariah Tio jimi, [facility] 6 10:18:00 Medications Name Sig Start Date Stop Date Status Note LastModified by Organization Details LastModified Time promethazin e-DM 6.25 mg-15 mg/5 mL oral syrup active Not Available Not Available Not Available clindamycin HCl 300 mg capsule 01/12 completed Not Available Not Available Not Available azithromyci n 250 mg tablet TAKE 2 TABLETS BY MOUTH ON DAY 1, THEN TAKE 1 TABLET DAILY ON DAYS 2-5 01/16 completed Not Available Not Available Not Available fluconazole 150 mg tablet TAKE 2 TABS BY MOUTH ONCE WEEKLY FOR 18 WEEKS 05/13 completed Not Available Not Available Not Available lovastatin 40 mg tablet active Not Available Not Available Not Available acyclovir 400 mg tablet 11/17 completed Not Available Not Available Not Available bupropion HCl SR 100 mg tablet,12 hr sustained-r elease TAKE 1 TABLET BY MOUTH EVERY DAY active Not Available Not Available No t Available levothyroxi ne 100 mcg tablet TAKE 1 TABLET BY MOUTH EVERY DAY 05/13 completed Not Available Not Available Not Available bupropion HCl 100 mg tablet Take 1 tablet every day by oral route. 02/14 completed Not Available Not Available Not Available triamcinolo ne acetonide 0.1 % dental paste apply topically to oral lesion three times daily active Not Available Not Available No t Available doxycycline monohydrate 100 mg capsule TAKE 1 CAPSULE BY MOUTH TWICE A DAY 01/12 completed Not Available Not Available Not Available simvastatin 20 mg tablet TAKE 1 TABLET BY MOUTH EVERY DAY active Not Available Not Available No t Available oseltamivir 75 mg capsule active Not Available Not Available Not Available buspirone 10 mg tablet active Not Available Not Available Not Available diclofenac potassium 50 mg tablet TAKE 1 TABLET BY MOUTH THREE TIMES A DAY WITH FOOD NEEDED active Not Available Not Available No t Available diclofenac sodium 50 mg tablet,silvano yed release TAKE 1 TABLET BY MOUTH THREE TIMES A DAY active Not Available Not Available No t Available hydroxychlo roquine 200 mg tablet take as directed active Not Available Not Available No t Available estradiol 0.01% (0.1 mg/gram) vaginal cream active Not Available Not Available Not Available methylpredn isolone 4 mg tablets in a dose pack TAKE BY MOUTH DIRECTED PER PACKAGE INSTRUCTI ONS 01/12 completed Not Available Not Available Not Available fluticasone propionate 50 mcg/actuati on nasal spray,suspe nsion SPRAY 1 SPRAY INTO EACH NOSTRIL TWICE A DAY 03/01 completed Not Available Not Available Not Available levothyroxi ne 112 mcg tablet TAKE 1 TABLET BY MOUTH DAILY active Not Available Not Available No t Available valsartan 40 mg tablet active Not Available Not Available Not Available chlorhexidi ne gluconate 0.12 % mouthwash 03/01 completed Not Available Not Available Not Available cholesterol 2.5 gram-28 kcal/10 gram oral powder Apply to legs twice daily for 3 months. 2023 active Not Available Not Available Not Avai lable Vitals Date Recorded Body weight Body mass index (BMI) Body height Respiratory rate Oxygen saturation Oxygen saturation in Arterial blood by Pulse oximetry Heart rate Systolic blood pressure Diastolic blood pressure Provider Name and Address Organization Details Last Updated DateTime 4 08877.8 4 g 25.4 kg/m2 165.1 cm 16 /min 99 % 99 % 52 /min 120 mm[Hg] 78 mm[Hg] [facility] 4 14:30:34 Date Recorded Body height Body mass index (BMI) Body weight Respiratory rate Heart rate Oxygen saturation Oxygen saturation in Arterial blood by Pulse oximetry Systolic blood pressure Diastolic blood pressure Provider Name and Address Organization Details Last Updated DateTime 4 165.1 cm 26 kg/m2 41714.8 1 g 16 /min 64 /min 97 % 97 % 110 mm[Hg] 78 mm[Hg] [facility] 4 15:34:10 Social History Question Answer Notes LastModified by [email or web address] Details LastModified Time Tobacco Smoking Status Former Smoker QUIT 2014 Fede Dye [facility] 06/28/2020 14:25:09 How Much Tobacco Do You Chew? None [email or web address] Information not available 05/11/2018 Live Alone Or With Others? With Others Information not available 02/15/2020 Marital Status Informatio n not available 02/15/2020 What Was The Date Of Your Most Recent Tobacco Screening? 10/19/2023 [email or web address] Information not available 10/19/2023 How Much Tobacco Do You Smoke? 0.5 PPD Information not available 05/11/2018 Has Tobacco Cessation Counseling Been Provided? No [email or web address] Information not available 05/11/2018 How Many Years Have You Smoked Tobacco? 10 [email or web address] Information not available 05/11/2018 Sex: Female Functional Status Question Answer Note LastModified by [email or web address] Details LastModified Time What is your level of alcohol consumption? None [email or web address] Information not available 05/10/2017 Do you or have you ever used smokeless tobacco? 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 Never used electronic cigarettes [email or web address] Information not available 11/14/2018 Mental Status None recorded. Family History Relationship Description Onset Age of this Age Resolved Age Notes LastModified by Organization Details LastModified Time Mother Cataract [email or web address] Not available 06/28/2020 14:24:53 Mother Age related macular degeneration dry [email or web address] Not available 09:46:46 Medical History Condition Response Diabetes N Bleeding Disorder N Arthritis Y Emphysema N Acid Reflux (GERD) N Asthma N COPD N High Cholesterol Y Heart Disease N Rheumatoid Arthritis N Hypertension N Glasses/Contacts Y Gynecological HistoryNo gynecological history recorded. Obstetrics History GPAL:G 0 P 0 0 0 0 Immunizations Vaccine Type Date Status Note Provider Nam e and Address Organization Details Recorded Time COVID-19, mRNA, LNP-S, PF, 30 mcg/0.3 mL dose 05/31/2020 completed Amy Newton [facility] 06/24/2020 10:41:04 COVID-19, mRNA, LNP-S, PF, 30 mcg/0.3 mL dose 06/21/2020 completed Amy Newton [facility] 06/24/2020 10:41:04 Past Encounters Encounter ID Performer Location Encounter Start Date Encounter Closed Date Diagnosis/Indication Diagnosis SNOMED-CT Code Diagnosis ICD10 Code Diagnosis Note [id number] MANJULA ELAM MD RHEUMATOL [address] [address] 02/18/2016 09:58:26 02/18/2016 10:39:52 Rheumatoid arthritis 62373908 M06.9 seems to have a very mild disease.Fu nctional class I.Good ROM and no active synovitis or effusions. 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 Seropositi ve rheumatoid arthritis 814834541 M05.9 [id number] MANJULA ELAM MD RHEUMATOL [facility] [address] [address] 05/18/2016 09:46:27 05/18/2016 11:20:11 Rheumatoid arthritis 89868175 M06.9 sero positive.s eems to have a very mild disease, some symptoms in hands, tenderness w/o synovitis. Remains in Functional class I.Good ROM and no active synovitis or effusions. No extra -articular manifestat ions noted. 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 Up the HCQ to 200 mg bid . [id number] MANJULA ELAM MD RHEUMATOL [place] [address] 11/16/2016 10:36:12 11/16/2016 12:40:41 Rheumatoid arthritis 97507119 M06.9 sero positive.f airly stable.Rem ains in Functional class I. Good ROM and no active synovitis or effusions. No extra -articular manifestat ions noted. 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 Up the HCQ to 200 mg bid . Generalize d osteoarthritis 197918229 M15.9 with symptomati c hands and feet.would suggest to DC Etodolac, and start Diclofenac 50 mg bid [id number] MANJULA ELAM MD RHEUMATOL [facility] [address] [address] 05/10/2017 10:18:00 05/10/2017 11:10:03 Rheumatoid arthritis 68013981 M06.9 sero positive and some symptoms in hands. some of this is acquired tenosynovi tis of the flexor tendon sheaths. aggravated by occupation . Remains in Functional class I.No extra -articular manifestat ions noted. 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 maintain the HCQ to 200 mg bid . Generalize d osteoarthritis 215602319 M15.9 with symptomati c hands and feet.would suggest to continue with the Diclofenac 50 mg bid to TID. [id number] MANJULA ELAM MD RHEUMATOL [address] [address] 11/08/2017 10:39:39 11/08/2017 11:51:30 Rheumatoid arthritis 17290834 M06.9 sero positive. symptoms in hands. plus elbows. Though no active synovitis. some of this is acquired tenosynovi tis of the flexor tendon sheaths. aggravated by occupation . Remains in Functional class I.No extra -articular manifestat ions noted. 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 maintain the HCQ to 200 mg bid . Generalize d osteoarthritis 797388960 M15.9 more of mechanical pains. symptomati c hands and feet.would suggest to continue with the Diclofenac 50 mg bid to TID. [id number] [facility]ULA ELAM [facility] [address] [place] [address] 05/11/2018 13:09:31 05/13/2018 10:01:12 Generalized osteoarthritis 720796168 M15.9 pleasant 53-year-ol d female with generalize d osteoarthr itis. Well maintained joint mobility. I do not see any indication s for corticoste roid injection and she can continue with the diclofenac potassium 50 mg up to 3 times a day as needed for pain. I did caution her about the use of diclofenac and empty stomach. Seronegati ve rheumatoid arthritis 939987493 M06.00 seronegati ve process, very well controlled . Does not have any active joints and lumbar fusion. Last studies were all stable. Maintain hydroxychl oroquine 200 mg twice a day. Long-term drug therapy 547324820 Z79.899 obtain labs to follow all the current medication s. Lateral epicondylitis 20 6311593 M77.12 patient has left lateral epicondyli tis. 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 I suggested to her to work on local care including moist heat applicatio n and use of elbow sleeve especially while painting. We decided to hold off on corticoste roid injection. Certainly she can call me if her symptoms do not improve or steroid injection. [id number] MANJULA ELAM MD RHEUMATOL [facility] [address] [place] [address] 11/14/2018 09:55:47 11/14/2018 10:18:04 Body mass index 25-29 - overweight 580684006 Z68.26 talked about weight and exercise. She has a good diet program and she'll continue to follow that. Generalize d osteoarthritis 161737418 M15.9 chronic generalize d osteoarthr itis, under well control. She manages a good exercise program as well as weight watch. I do not see any indication s for corticoste roid injection and she can continue with the diclofenac potassium 50 mg up to 3 times a day as needed for pain. I did caution her about the use of diclofenac and empty stomach. Seronegati ve rheumatoid arthritis 899373441 M06.00 seronegati ve process, very well controlled . Does not have any active joints synovitis or effusions. Maintain hydroxychl oroquine 200 mg twice a day. She does need to have an eye examinatio n once a year. Reminder is given to the patient. Long-term drug therapy 854106148 Z79.899 obtain labs to follow all the current medication s. Hyperlipidemia 52225909 E78.5 she has chronic hyperlipid emia and is now off the statins. I would like to obtain fasting lipid panel specially as she is also a rheumatoid patient which does increase the cardiovasc ular risk. I'll contact her after reviewing the lipid panel [id number] MANJULA ELAM MD RHEUMATOL [facility] [address] [place] [address] 05/01/2019 09:11:20 05/01/2019 09:49:18 Trochanteric bursitis of right hip [id number] 09511 M70.61 53-year-ol d female seen today as a routine follow-up. She has right lateral hip pain consistent with trochanter ic pain syndrome. The hip joint itself looks stable. No radiculopa thy noted. Discussed with the patient. I suggested physical therapy evaluation . Hold off on steroid injection for now. Body mass index 25-29 - overweight 077512920 Z68.26 importance of diet and exercise reviewed. Generalize d osteoarthritis 732809402 M15.9 chronic generalize d osteoarthr itis, under well control. She manages a good exercise program as well as weight watch. maintain regular exercise and continue with the diclofenac potassium 50 mg up to 3 times a day as needed for pain. I did caution her about the use of diclofenac and empty stomach. Seronegati ve rheumatoid arthritis 640308966 M06.00 seronegati ve process, very well controlled . Does not have any active joints synovitis or effusions. Maintain hydroxychl oroquine 200 mg twice a day. she is up-to-date with eye examinatio n Long-term drug therapy 894222865 Z79.899 obtain labs to follow all the current medication s. [id number] MANJULA ELAM MD RHEUMATOL [facility] [address] [place] [address] 10/31/2019 08:05:55 10/31/2019 10:51:55 Body mass index 25-29 - overweight 580303472 Z68.26 importance of diet and exercise reviewed. Generalize d osteoarthritis 107804349 M15.9 chronic generalize d osteoarthr itis, under well control. She manages a good exercise program as well as weight watch. she will maintain regular exercise and continue with the diclofenac potassium 50 mg up to 3 times a day as needed for pain. I did caution her about the use of diclofenac with empty stomach. Refills given. Seronegati ve rheumatoid arthritis 640580871 M06.00 seronegati ve process, stable. Clinically , I did not see any active joints synovitis or effusions. Maintain hydroxychl oroquine 200 mg twice a day. she is up-to-date with eye examinatio n Paresthesia 33453933 R20 .2 she has paresthesi as in both hands and feet. She has a history of carpal tunnel syndrome. Had surgery. I would like her to have an evaluation with a neurologis t. Long-term drug therapy 697610109 Z79.899 obtain labs to follow all the current medication s. [id number] CHUY BUTT MD NEUROLOGY [facility] [address] [place] [address] 02/15/2020 10:31:46 02/15/2020 11:40:11 Paresthesia 29239560 R20.2 54 yo woman with seronegati ve negative RA and PMH bilateral CTS s/p release in 2014, now with numbness and tingling feet and hands since August 2019. Exam findings of length-dep endent small fiber neuropath all limbs and large fiber bilateral lower extremitie s, non-length dependent in the upper extremitie s. Reflexes are intact throughout and no weakness. I will work up for an underlying neuropathy . Notably, PMH RA, which can cause a neuropathy . She does not take vitamins. Will check for nutritiona l causes. She is not diabetic. She has thyroid disease on Synthroid. - check CBC, CMP, TSH, B12/folate , B6, vit D - schedule EMG BUE, BLE with Kira [id number] MANJULA ELAM MD RHEUMATOL [place] [place] [id number] 05/01/2020 11:40:40 05/01/2020 12:25:25 Body mass index 25-29 - overweight 407572919 Z68.26 she is doing very well. Working on her diet and exercise Generalize d osteoarthritis 677484642 M15.9 chronic disease. Stable range of motion. Stable muscle strength. she will maintain regular exercise and continue with the diclofenac potassium 50 mg up to 3 times a day as needed for pain. I did caution her about the use of diclofenac with empty stomach. Refills given. Seronegati ve rheumatoid arthritis 363116989 M06.00 seronegati ve process,Ch ronic disease in clinical stable. No evidence of synovitis noted. No effusion noted. maintain hydroxychl oroquine 200 mg twice a day. she is up-to-date with eye examinatio n Long-term drug therapy 576304228 Z79.899 obtain labs to follow all the current medication s. Needs eye examinatio n to follow up on hydroxychl oroquine [id number] CHUY BUTT MD NEUROLOGY [place] [id number] 2020 09:50:41 2020 11:03:04 Small fiber neuropathy 614017258 G62.89 Carpal shira felicita syndrome of left wrist [id number] 22037 G56.02 Skin sensa tion disturbance 13215221 R20.9 [id number] TROY WEST MD OPHTHALMO [address] ,[address] [address] 06/28/2020 13:48:24 06/28/2020 15:47:20 Long-term drug therapy 356773556 Z79.899 max daily dose for current body weight is 352mg/day rec decreasing dose to reduce risk of vision loss discussed risks of plaquenil therapy mac normal oct mac normal vf normal 3 years of tx rec repeat testing in 2022 [id number] MANJULA ELAM MD RHEUMATOL [facility] [address] [address] 10/29/2020 15:43:42 10/30/2020 09:03:11 Body mass index 25-29 - overweight 388580982 Z68.26 she is doing very well. Working on her diet and exercise Generalize d osteoarthritis 795486908 M15.9 chronic disease. Clinically stable. Stable proximal and distal muscle strength. No sensory deficits noted. Physiologi c cardiopulm onary examinatio n. she will maintain regular exercise and continue with the diclofenac potassium 50 mg up to 3 times a day as needed for pain. I did caution her about the use of diclofenac with empty stomach. Refills given. Seronegati ve rheumatoid arthritis 092946578 M06.00 seronegati ve rheumatoid arthritis and clinically stable. Intact active and passive range of motion. Normal physiologi c systemic exam. She has done very well on hydroxychl oroquine at 400 mg once a day in divided doses. She can try to alternate 400 mg with 200 mg every other day. Eye examinatio n is up-to-date . Long-term drug therapy 942897467 Z79.899 obtain labs to follow all the current medication s. Needs eye examinatio n to follow up on hydroxychl oroquine Trochanter ic bursitis of right hip 8653991022 31996 M70.61 55-year-ol d female chronic trochanter ic bursitis. Agree with the stretching exercises. Also encouraged moist heat applicatio n. [id number] MANJULA ELAM MD RHEUMATOL [facility] [address] [place] [address] 05/13/2021 15:38:22 05/14/2021 11:43:19 Body mass index 25-29 - overweight 875815828 Z68.26 she is doing very well. Working on her diet and exercise Generalize d osteoarthritis 810238663 M15.9 chronic disease. Stable exam. Intact range of motion. Strength is physiologi c. Trochanter ic bursa without any significan t tenderness . she will maintain regular exercise and continue with the diclofenac potassium 50 mg up to 3 times a day as needed for pain. I did caution her about the use of diclofenac with empty stomach. Maintain blood counts and kidney function test every 6 months Refills given. Seronegati ve rheumatoid arthritis [id number] M06.00 56-year-ol d with seronegati ve rheumatoid arthritis and clinically stable.Sta ble exam without any active disease. Intact active and passive range of motion. Normal physiologi c systemic exam.Sugge sted her to reduce the dose of hydroxychl oroquine to 400 mg alternate with 200 mg every other day based on her body weight. Continue with the eye examinatio n. Long-term drug therapy [id number] Z79.899 obtain labs to follow all the current medication s. Needs eye examinatio n to follow up on hydroxychl oroquine [id number] MANJULA ELAM MD RHEUMATOL [facility] [address] [place] [address] 01/12/2022 15:19:52 01/13/2022 14:40:41 Body mass index 25-29 - overweight [id number] Z68.26 she is doing very well. Working on her diet and exercise most recent BMI is 26.1 Generalize d osteoarthritis [id number] M15.9 Generalize d osteoarthr itis. Has done very well. Stable musculoske letal exam. Normal strength. No motor or sensory deficits. Suggested to maintain the use of diclofenac 50 mg twice a day with meals. Maintain low-carb diet. Encouraged fruits and vegetables intake and restrict red meat. Refills given. Seronegati ve rheumatoid arthritis [id number] M06.00 56-year-ol d with seronegati ve rheumatoid arthritis and clinically stable.Sta ble exam without any active disease. Intact active and passive range of motion. Normal physiologi c systemic exam.Katy nue with hydroxychl oroquine 400 mg alternate with 200 mg every other day. Suggested to follow-up with an eye examinatio n every 12 months. Refills given. Long-term drug therapy [id number] Z79.899 obtain labs to follow all the current medication s. Needs eye examinatio n to follow up on hydroxychl oroquine, she will schedule the eye examinatio n on her birthday month. [id number] TROY WEST MD OPHTHALMO LOGY [address] [place] [address] 02/26/2022 09:04:25 02/26/2022 12:18:00 Long-term drug therapy [id number] Z79.899 no signs of toxicity max daily dose for current body weight is 359g/day - okay to continue current dose discussed risks of plaquenil therapy mac normal oct mac normal vf normal 5 years of tx1 year oct mac, hvf [id number] TROY WEST MD OPHTHALMO LOG[address] [place] [address] 03/01/2023 13:36:56 03/01/2023 15:43:22 Long-term drug therapy [id number] Z79.899 no signs of toxicity max daily dose for current body weight is 347g/day - okay to continue current dose discussed risks of plaquenil therapy mac normal oct mac normal vf normal 6 years of tx1 year oct mac, hvf [id number] MANJULA ELAM MD RHEUMATOL OGY [address] [place] [address] 04/20/2023 14:19:40 04/21/2023 14:37:37 Body mass index 25-29 - overweight [id number] Z68.26 she is doing very well. Working on her diet and exercise most recent BMI is 26.1 Generalize d osteoarthritis [id number] M15.9 Generalize d osteoarthr itis. Has done very well. She has maintain good physical activity, exercise and weight loss program. Suggested to maintain the use of diclofenac 50 mg twice a day with meals as needed. Maintain low-carb diet. Encouraged fruits and vegetables intake and restrict red meat. Refills given. Seronegati ve rheumatoid arthritis [id number] M06.00 57-year-ol d with seronegati ve rheumatoid arthritis and clinically stable.She is doing very well. No active synovitis or effusion. Range of motion is intact. Strength is physiologi c. Continue with hydroxychl oroquine 400 mg alternate with 200 mg every other day. Suggested to follow-up with an eye examinatio n every 12 months. Refills given. follow up in the fall Long-term drug therapy [id number] Z79.899 obtain labs to follow all the current medication s. Needs eye examinatio n to follow up on hydroxychl oroquine, she will schedule the eye examinatio n on her birthday month. [id number] MANJULA ELAM MD RHEUMATOL OGY [address] [place] [address] 10/19/2023 15:21:24 10/21/2023 13:24:35 Body mass index 25-29 - overweight [id number] Z68.26 she is doing very well. Working on her diet and exercise most recent BMI is 26.1 Generalize d osteoarthritis [id number] M15.9 Generalize d osteoarthr itis. Has done very well. She has maintain good physical activity, exercise and weight loss program. Suggested to maintain the use of diclofenac 50 mg twice a day with meals as needed. Maintain low-carb diet. Encouraged fruits and vegetables intake and restrict red meat. Refills given. Seronegati ve rheumatoid arthritis [id number] M06.00 58-year-ol d with seronegati ve rheumatoid arthritis and clinically stable.She is doing very well. No active synovitis or effusion. Range of motion is intact. Strength is physiologi c. Continue with hydroxychl oroquine 400 mg alternate with 200 mg every other day. Suggested to follow-up with an eye examinatio n every 12 months. Refills given. follow up in the fall Long-term drug therapy [id number] Z79.899 obtain labs to follow all the current medication s. Needs eye examinatio n to follow up on hydroxychl oroquine, she will schedule the eye examinatio n on her birthday month. Bilateral carpal tunnel syndrome [id number] G56.03 Clinical evidence of carpal tunnel syndrome. Suggested use of cock-up wrist braces at night for 6 weeks. Reassess if it still symptomati c obtain nerve conduction studies. [id number] BRUCE FIGUEROA PA-C [address] [address] 11/18/2023 09:30:07 11/18/2023 11:12:01 Actinic keratosis [id number] L57.0 Precancero us lesion(s). Will LN2 today.Can leave a white discolorat ion in the areas when LN2 is performed. Discussed biopsying lesions if they do not resolve after GH1Fkuolz- up if lesion(s) persists or do not resolve. Follow up in 2 months for a recheck. [id number] BRUCE FIGUEROA PA-C [address] [place] [address] 01/17/2024 15:04:04 01/17/2024 16:05:36 Neoplasm of uncertain behavior of skin [id number] D48.5 Biopsies recommende d today.- Verbal consent given by patient. Disc pain, scar, bleeding, infection and possible need for more treatment. Disc specimen will be sent to pathology- Written wound instructio ns were provided to patient.- Patient was told that they should receive results in 2 weeks via portal or telephone. - If they have not received results in two weeks, they were instructed to call. Discussed treatment options for AKs and porokerato ses.Will discuss treatments further pending biopsy results. Health Concerns Section Related Observation LastModified by Organization Detai ls LastModified Time None Recorded Concern Status LastModified by Organization Details LastModified Time None Recorded Advance Directives Directive None Recorded Payers Insurance Date Sequence Insurance Name Policy Number Policy Barry Covered Member ID Barry Member ID Guarantor Name 05/08/2024 1 [place] [id number] Dangelo Humphrey [id number] Bonnie Humphrey Notes Date Note Type Note Provider Name and Address Organization Details Recorded Time 4 text/html 57-year-old with degenerative arthritis and seronegative inflammatory arthritis. Leonid was last seen here in our rheumatology department 01/12/2022 She is on low-dose diclofenac twice a day only as needed along with hydroxychloroquine 400 mg alternate with 200 mg every other day In general has done very well. No acute complaints. Participating in normal activities. MANJULA ELAM MD [facility] [place], [address], [facility] 04/20/2023 14:42:59 4 text/html 57-year-old with degenerative arthritis and seronegative inflammatory arthritis. Leonid was last seen here in our rheumatology department 04/20/23. Only complaint is thinks her carpal tunnel is returning. She will use a carpal tunnel brace. She is on low-dose diclofenac twice a day only as needed along with hydroxychloroquine 400 mg alternate with 200 mg every other day In general has done very well. No acute complaints. Participating in normal activities. MANJULA ELAM MD [address] [place], [address], [facility] 10/19/2023 16:22:58 4 text/html I have spots of concernLocation: face, arms. legsReports: dry, rough spots. Spot on nose keeps flaking off and coming back No history of skin cancerNew patient BRUCE FIGUEROA PA-C [address] [place], [address], [facility] 11/21/2023 08:42:22 4 text/html I am following up with AK'sLocation: face, arms, legsTx: TT2Vtceyct: Spot on L foot and bilateral lower legs need refrozen, Spots on arms and face have no returned. BRUCE FIGUEROA PA-C [address] [place], [address], [facility] 01/18/2024 07:59:23 OBGyn Episode No OBEpisode recorded.
--- NOTE | 2024-07-06 13:10 | CA_ITS ---
APPROVED REPORT EXAM: Comprehensive 2D, Doppler, and color-flow Echocardiogram Claims Agent Right Of Way: Svetlana Watts RVT Ht: 5 ft 5 in Wt: 158lbs BSA: 1.79 BP: 124/78 mmHg Indications: SYNCOPE,HTN 2D Dimensions LA Volume 50.60 mL LA Volume Index 28.27 mL/m2 (M/F) 16-34 M-Mode Dimensions RVDd 2.74 cm (0.9-2.6) LA Diam 3.32 cm (1.9-4.0) LVDd 3.77 cm (3.5-5.7) LVDs 2.67 cm (3.5-5.7) IVSd 1.21 cm (0.6-1.1) PWd 0.50 cm (0.6-1.1) EF (Teich) 56.70% FS 29.20% EDV (Teich) 60.80 mL TAPSE 2.25 (<1.7) ESV (Teich) 26.30 mL LV Diastology E Decel Time 150 (160-240 msec) E/A Ratio 1.3 Aortic Valve NUSRAT Index 0.97 cm2/m2 AoV Peak Armando. 147.0 (50-130 cm/s) AO Peak GR. 8.70 mmHg AO Mean GR. 5.20 (<5 mmHg) AO VTI 33.1 (18-25 cm) NUSRAT (VTI) 1.78 (2.5-4.5 cm2) Mitral Valve MV E Max Armando. 77.0 (40-130 cm/s) MV A Velocity 60.0 (40-130 cm/s) E/A Ratio 1.28 MV PHT 44.0 ms Pulmonary Valve PV Peak Velocity 62.0 (50-150 cm/s) Tricuspid Valve TR P. Velocity 210.00 cm/s RAP Estimate 10.00 mmHg RVSP 27.60 mmHg Left Ventricle The left ventricle is normal size. The left ventricular systolic function is normal. The left ventricular ejection fraction is within the normal range. There is normal left ventricular wall thickness. There is normal LV segmental wall motion. The left ventricular diastolic function is normal. LVEF is 55%. Right Ventricle Right ventricle is mildly dilated. The right ventricular systolic function is normal. Atria The left atrium size is normal. The right atrium size is normal. There is no Doppler evidence of interatrial shunt. Aortic Valve Aortic valve is mildly thickened. There is no aortic valvular stenosis. No aortic regurgitation is present. Mitral Valve The mitral valve is normal in structure. No evidence of mitral valve stenosis. Trace mitral regurgitation. Tricuspid Valve Tricuspid valve is grossly normal in structure and function. Trace tricuspid regurgitation. There is insufficient TR jet to estimate RVSP. Pulmonic Valve The pulmonary valve is normal in structure. Trace pulmonic regurgitation. Great Vessels The aortic root is normal in size. IVC is normal in size and collapses >50% with inspiration. Pericardium There is no pericardial effusion. Other Information Study Quality: Fair Conclusion Normal biventricular systolic function. Mild RV dilation. No significant valvular stenosis or regurgitation. Electronically signed by : Norma Butler MD 07/16/2024 21:14:33
--- NOTE | 2024-07-06 13:42 | CT_ITS ---
FINAL REPORT TECHNIQUE: Axial CT images were performed through the head. Coronal reformatted images were submitted. This study was performed with techniques to keep radiation doses as low as reasonably achievable (ALARA). Individualized dose reduction techniques using automated exposure control or adjustment of mA and/or kV according to the patient's size were employed. CLINICAL HISTORY: SYNCOPE & COLLAPSE COMPARISON: None FINDINGS: There is mild asymmetry of the lateral ventricles with the right being prominent than the left, probably constitutional. There is no evidence of hemorrhage. There is no mass or edema identified. There is no abnormal extra-axial fluid seen. The paranasal sinuses are well aerated. IMPRESSION: No acute intracranial process. Reviewed, Interpreted and Dictated by Dell Rose MD Transcribed by Ilana Anna Authenticated and [facility]
== END 2024-07-06 23:59 | disposition home or self-care (01) ==
LOC: RT 13:07
PROVIDERS: PCP Nurse Practitioner Family; Visit Provider Nurse Practitioner Family
DX: I11.9 Hypertensive heart disease without heart failure (principal); R55 Syncope and collapse
CPT/HCPCS: 70450; 93306

== ENCOUNTER 2024-12-19 16:57 | Outpatient (CLI) | payer BC, SELFPAY ==
--- OUTSIDE RECORDS SUMMARY | 2024-12-19 17:00 | XMS_ITS | Continuity of Care Document ---
Author Organization [facility], [facility] Address [address] [address] [place] [address] Care Team Providers Care Can Line Examiner Name Role Phone MANJULA ELAM Referring Provider [phone] TROY WEST Sheet Metal Pattern Cutter ERNESTINE MALHOTRA Primary Care Provider MANJULA ELAM Personal Lines Sales Rep ERNESTINE MALHOTRA Referring Provider [phone] Assessment No assessment recorded. Plan of Treatment Reminders Order Date Submit Date Provider Last Modified By Organization Details Last Modified Time Details Appointments VISUAL FIELD 2025 09:45A M Ophth_vis ual_field s Not available Not available Not available LEVEL 2 2025 10:00A M TROY WEST MD Not available Not available Not available RHEUM RECHECK 2025 04:00P M MANJULA ELAM MD Not available Not available Not available Lab None recorded . Referral None recorded . Procedures None recorded . Surgeries None recorded . Imaging None recorded . Medication Orders None recorded . Patient TargetsNo targets recorded. Patient InstructionsNo instructions recorded. Reason for Referral None Reported. Results Created Date Observation Date Name Description Value Unit Range Abnormal Flag Note LastModifiedBy Organization Detail LastModifiedTime 11/04/1911/03/2024 optic al coher ence tomog alondra, retin a No observ ation record ed. [email or web address] Not Available 2024 12:18:50 11/04/19 25 11/03/2024 visua l field test No observ ation record ed. BARCODE Not Available 2024 14:03:31 Result Notes None recorded. Problems Name Problem SNOMED Code Status Onset Date Resolution Date Notes Provider Name and Address Organization Details Recorded Time Hypothyroidism 47439955 [facility]:24 Rheumatoid arthritis 34712819 [facility] 2020 [facility] 14:24:35 Problem Notes Documentation Provider Name and Address Organization Details Recorded Time Sheet Metal Pattern Cutter Consult Note : [place] [address] [address] [facility] [address]XKUVDSavana (Legal name: Bonnie Humphrey) (id #[id number], : 1965) [place] [address] [place] [address] Encounter Summary - Progress Note Date Printed: 11/03/2024 Documents sent via fax will include the [...] received this fax in error, please visit [email or web address] [email or web address] to notify the sender and confirm that the information will be destroyed. If you do not have internet access, please call to notify the sender and confirm that the information will be destroyed. Thank you for your attention and cooperation. [ID:[id number]] Patient Bonnie Humphrey (59yo, F) #[id number] 1965 Patient Demographics: Address [address] [place] [address] Work Phone Encounter Notes: Encounter Reason/Date 59y/o wf on Plaquenil returns complete eye exam, mac oct and hvf 10-2. no change in vision since last exam. no issues with road signs, TV scroll or fine print. no new eye concerns. gtts:none. Plaquenil 200 mg bid 5+ years AB eyes doing well 7-8 years on plaq no ne probs /2//2//2/ on pills 11/03/2024 - 11:00AM - OPHTHALMOLOGY [facility] History of Present IllnessNone recorded Review of Systems Patient reports no sleep apnea. She reports no bleeding tendency. VitalsNone recorded Results/Interpretations Physical ExamExternal Exam:General Appearance normal. Face: normal. Lids: normal. Pupils normal. Muscle Balance Testing: normal. EOM: normal. Visual Morris Exam normal to count fingers OU;see today's hvf. Slit Lamp Exam:Lids normal. Conjunctiva: normal. Cornea: normal. Anterior Chamber: normal. Iris: normal. Lens: normal. Fundus Exam:Vitreous: normal. Disc C/D Ratio normal, OD: 0.3, and OS: 0.3. Retinal Vessels normal. Macula: normal. Peripheral Retina normal. Psychiatric:Orientation: oriented to time, place, and person. Mental Status: affect normal. Procedure DocumentationOCT/Retina:Op tical Coherence Testing (OCT) of retina performed. See scanned document for detail.Visual Field Extended:Extended visual field examination performed. See scanned report for findings. Assessment and Plan1. Long-term drug therapy-no signs of toxicity discussed risks of plaquenil therapy mac normal oct mac normal vf normal 7-8 years of tx1 year oct mac, hvf Z79.899: Other correction (current) drug therapy glasses (Expiration Date: 11/03/2025)Right -Sph: +0.25Cyl: sphAxis: A dd: +2.50Left -Sph: -0.75Cyl: +1.00Axis: 180Add: +2.50 Return to Office OPHTH_VISUAL_FIELDS for VISUAL FIELD at OPHTHALMOLOGY [facility] on 11/03/2024 at 10:30 AM MANJULA ELAM MD for RHEUM RECHECK at RHEUMATOLOGY on 11/07/2024 at 09:00 AM to see TROY WEST MD for LEVEL 2 at OPHTHALMOLOGY [facility] on or around 11/03/2025 Patient Medical History: Allergies List Reviewed Allergies CODEINE Medications Reviewed Medications NameDate Source buPROPion HCL SR 100 mg tablet,12 hr sustained-releaseTAKE 1 TABLET BY MOUTH EVERY DAY04/22/24 filled surescripts busPIRone 10 mg jgzigt69/22/24 filled surescripts cholesterol 2.5 gram-28 kcal/10 gram oral powderApply to legs twice daily for 3 months.01/26/24 prescribed BRUCE FIGUEROA PA-C diclofenac potassium 50 mg tabletTAKE 1 TABLET BY MOUTH THREE TIMES A DAY WITH FOOD ATBJBC12/16/25 renewed MANJULA ELAM MD estradioL 0.01% (0.1 mg/gram) vaginal cream08/09/23 filled surescripts hydroxychloroquine 200 mg tabletTAKE 2 TABLETS EVERY OTHER DAY ALTERNATING WITH 1 TABLET EVERY OTHER DAY08/07/24 renewed MANJULA ELAM MD levothyroxine 112 mcg tabletTAKE 1 TABLET BY MOUTH DAILY03/01/24 filled surescripts lovastatin 40 mg fqoasz04/05/24 filled surescripts oseltamivir 75 mg kjkmbep12/20/25 filled surescripts promethazine-DM 6.25 mg-15 mg/5 mL oral syrup04/13/24 filled surescripts simvastatin 20 mg tabletTAKE 1 TABLET BY MOUTH EVERY DAY04/22/24 filled surescripts triamcinolone acetonide 0.1 % dental pasteapply topically to oral lesion three times daily12/15/23 filled surescripts valsartan 40 mg acywit15/15/25 filled surescripts Family HistoryReviewed Family History Mother - Cataract - Age related macular degeneration - dry Past Medical HistoryReviewed Past Medical History Glasses/Contacts:Y Vaccine HistoryVaccines not reviewed (last reviewed 10/19/2023) Vaccine Type Date Amt. Route Site [facility] Lot # [id number]. Exp. 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 Diphtheria, Tetanus, Pertussis Tdap 06/10/24 0.5 mL Intramuscular Deltoid, Left PG3RP [employer] 09/01/26 Electronically Signed by: TROY WEST MD MANJULA MARILEE ELAM MD [address] [place] [address], [phone], [facility] 11/13/2024 13:03:15 Procedures Surgical History Date Name Laterality Status Provider Name and Address Organization Details Recorded Time 025 OCT/Retina completed Malik Pride [facility] 11/03/2024 11:15:53 025 Visual Field Extended completed TROY WEST MD [address] [place] [address] [place], [address], [facility] 11/03/2024 12:18:15 024 DAK - Biopsy, Tangential [facility]/17[facility] 16:00:09 024 DAK - Cryo AK [facility] 11/18/2023 10:36:03 024 OCT/Retina completed TROY WEST MD [address] [place] [address] [place], [address], [facility] 03/01/2023 15:25:28 024 Visual Field Extended completed TROY WEST MD [address] [place] [address] [place], [address], [facility] 03/01/2023 15:25:30 023 OCT/Retina completed TROY WEST MD [address] [place] [address] [place], [address], [facility] 02/26/2022 10:29:26 023 Visual Field Extended completed TROY WEST MD [address] [place] [address] [place], [address], [facility] 02/26/2022 10:29:27 021 OCT/Retina completed TROY WEST MD [address] [place] [address], [phone], [facility] 06/28/2020 15:11:00 021 Visual Field Extended completed TROY WEST MD [address] [place] [address], [phone], [facility] 06/28/2020 15:11:02 021 Electromyography (EMG) with Nerve Conduction Study (NCV) completed Yumiko Corley (Nicky) [facility] 2020 11:11:14 Carpal tunnel surgery completed Daija Baugh [facility] 05/10/2017 10:43:16 Removal of tonsils completed Daija molina [facility] 05/10/2017 10:43:25 Imaging Results None recorded. Procedure Notes None recorded. Medical Equipment None Reported. Allergies Allergen ID Allergen Name Allergen Category Reaction Reaction Severity Criticality Documentation Date Start Date Code Code System Note Provider Name and Address Organization Details Recorded Time [id number] codeine medicatio n Not available Not available Not available 02/18/2016 2670 RxNorm [facility] 10:18:00 Medications Name Sig Start Date [...] Not Available diclofenac potassium 50 mg tablet Take 1 tablet twice a day by oral route for 90 days. 2024 active Not Available Not Available Not Avai lable diclofenac sodium 50 mg tablet,silvano yed release TAKE 1 TABLET BY MOUTH THREE TIMES A DAY active Not Available Not Available No t Available hydroxychlo roquine 200 mg tablet take as directed 2024 active Not Available Not Available Not Avai lable estradiol 0.01% (0.1 mg/gram) vaginal cream active [...] Available Not Available Not Avai lable Vitals None Recorded Social History Question Answer Notes LastModified by Organizat ion Details LastModified Time Tobacco Smoking Status Former Smoker QUIT 2014 Fede Dye [facility] 06/28/2020 14:25:09 How Much Tobacco Do You Chew? None [email or web address] Information not available 05/11/2018 Live Alone Or With Others? With Others [email or web address] Information not available 02/15/2020 Marital Status [email or web address] Informatio n not available 02/15/2020 What Was The Date Of Your Most Recent Tobacco Screening? 11/07/2024 [email or web address] Information not available 11/07/2024 How Much Tobacco Do You Smoke? 0.5 PPD [email or web address] Information not available 05/11/2018 Has Tobacco Cessation Counseling Been Provided? No [email or web address] Information not available 05/11/2018 How Many Years Have You Smoked Tobacco? 10 [email or web address] Information not available 05/11/2018 Sex: Female Functional Status Question Answer Note LastModified by Organizat ion Details LastModified Time What is your level of alcohol consumption? None [email or web address] Information not available 05/10/2017 Do you or have you ever used smokeless tobacco? 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 Never used electronic cigarettes [email or web address] Information not available 11/14/2018 Mental Status None recorded. Family History Relationship Description Onset Age of this Age Resolved Age Notes LastModified by Organization Details LastModified Time Mother Cataract [email or web address] Not available 06/28/2020 14:24:53 Mother Age related macular degeneration dry [email or web address] Not available 09:46:46 Medical History Condition Response [...] e and Address Organization Details Recorded Time Tdap 06/10/2024 completed Not Available [employer] 11/07/2024 09:16:17 COVID-19, mRNA, LNP-S, PF, 30 mcg/0.3 mL dose 05/31/2020 completed Amy Newton [facility] 06/24/2020 10:41:04 COVID-19, mRNA, LNP-S, PF, 30 mcg/0.3 mL dose 06/21/2020 completed Amy Newton [facility] 06/24/2020 10:41:04 Past Encounters Encounter ID Performer Location Encounter Start Date Encounter Closed Date Diagnosis/Indication Diagnosis SNOMED-CT Code Diagnosis ICD10 Code Diagnosis IMO Codes Diagnosis Note [id number] TROY WEST MD OPHTHALMO [address] [place] [address] 11/03/2024 10:43:39 11/03/2024 12:19:43 Long-term drug therapy 782158140 Z79.899 no signs of toxicity discussed risks of plaquenil therapy mac normal oct mac normal vf normal 7-8 years of tx1 year oct mac, hvf Health Concerns Section Related Observation LastModified by Organization Detai ls LastModified Time None Recorded Concern Status LastModified by Organization Details LastModified Time None Recorded Payers Encounter Date Sequence Insurance Name Policy Number Policy Barry Covered Member ID Barry Member ID Guarantor Name 11/03/2024 1 [place] [id number] Dangelo Humphrey [id number] Bonnie Humphrey OBGyn Episode No OBEpisode recorded.
--- OUTSIDE RECORDS SUMMARY | 2024-12-19 17:00 | XMS_ITS | Continuity of Care Document ---
Author Organization [facility], RHEUMATOLOGY SB Address [address] [place] [address] Care Team Providers Care School Lunch Manager Name Role Phone MANJULA ELAM Referring Provider [phone] TROY WEST Perforator Operator ERNESTINE MALHOTRA Primary Care Provider [phone] MANJULA ELAM Assembly Repairer ERNESTINE MALHOTRA Referring Provider Assessment No assessment [...] Not available Not available Not available Lab CBC w/ auto diff 2024 025 [facility], [address] [place] [address], [address], 11/07/2024 10:55:57 ESR (erythroc yte sedimenta tion rate), blood 2024 025 [facility], [address] [place] [address], [address], 11/07/2024 11:32:43 CMP, serum or plasma 2024 025 [facility], [address] [place] [address], [address], 11/07/2024 11:35:26 Referral None recorded. Procedures None recorded. Surgeries None recorded. Imaging None recorded. Medication Orders diclofena c potassium 50 mg tablet 2024 025 [id number], [address] [place], [address], 11/07/2024 09:33:00 hydroxych loroquine 200 mg tablet 2024 025 [facility][id number], [address] [place], [address], 11/07/2024 09:32:59 Patient TargetsNo targets recorded. Patient InstructionsNo instructions recorded. Reason for Referral None Reported. Results Created Date Observation Date Name Description Value Unit Range Abnormal Flag Note LastModifiedBy Organization Detail LastModifiedTime 11/08/1911/07/2024 COMPL ETE BLOOD COUNT white blood cells 4.6 10*3/ uL 3.8-10 .8 normal Not Available [facility] [address] [place], [address], 11/07/2024 10:55:57 11/08/1911/07/2024 COMPL ETE BLOOD COUNT red blood cells 5.02 10*6/ uL 3.80-5 .20 normal Not Available [facility] [address] [place], [address], 11/07/2024 10:55:57 11/08/1911/07/2024 COMPL ETE BLOOD COUNT hemoglobin 15.1 g/dL 12.0-1 6.0 normal Not Available [facility] [address] [place], [address], 11/07/2024 10:55:57 11/08/1911/07/2024 COMPL ETE BLOOD COUNT hematocrit 44.5 % 35.0-4 7.0 normal Not Available [facility] [address] [place], [address], 11/07/2024 10:55:57 11/08/19 25 11/07/2024 COMPL ETE BLOOD COUNT MCV 89 fL 80-100 normal Not Available [facility] [address] [place] [address], [address], 11/07/2024 10:55:57 11/08/19 25 11/07/2024 COMPL ETE BLOOD COUNT MCH 30 pg 26-35 normal Not Available [facility] [address] [place] [address], [address], 11/07/2024 10:55:57 11/08/19 25 11/07/2024 COMPL ETE BLOOD COUNT MCHC 34 g/dL 32-36 normal Not Available [facility] [address] [place] [address], [address], 11/07/2024 10:55:57 11/08/19 25 11/07/2024 COMPL ETE BLOOD COUNT RDW 13.3 % 11.0-1 5.0 normal Not Available [facility] [address] [place] [address], [address], 11/07/2024 10:55:57 11/08/19 25 11/07/2024 COMPL ETE BLOOD COUNT MPV 8.1 fL 6.2-10 .5 normal Not Available [facility] [address] [place] [address], [address], 11/07/2024 10:55:57 11/08/19 25 11/07/2024 COMPL ETE BLOOD COUNT platelet count 234 10*3/ uL 150-40 0 normal Not Available [facility] [address] [place] [address], [address], 11/07/2024 10:55:57 11/08/19 25 11/07/2024 COMPL ETE BLOOD COUNT neutrophil,a bsolute 2.8 10*3/ uL 1.6-8. 4 normal Not Available [facility] [address] [place] [address], [address], 11/07/2024 10:55:57 11/08/19 25 11/07/2024 COMPL ETE BLOOD COUNT lymphocyte,a bsolute 1.2 10*3/ uL 0.4-5. 1 normal Not Available [facility] [address] [place] [address], [address], 11/07/2024 10:55:57 11/08/1911/07/2024 COMPL ETE BLOOD COUNT monocyte,abs olute 0.4 10*3/ uL 0.0-1. 2 normal Not Available [facility] [address] [place] [address], [address], 11/07/2024 10:55:57 11/08/1911/07/2024 COMPL ETE BLOOD COUNT eosinophil,a bsolute 0.1 10*3/ uL 0.0-0. 8 normal Not Available [facility] [address] [place] [address], [address], 11/07/2024 10:55:57 11/08/19 25 11/07/2024 COMPL ETE BLOOD COUNT basophil,abs olute 0.0 10*3/ uL 0.0-0. 3 normal Not Available [facility] [address] [place] [address], [address], 11/07/2024 10:55:57 11/08/1911/07/2024 COMPL ETE BLOOD COUNT % neutrophils 60.3 % 42.0-7 8.0 normal Not Available [facility] [address] [place] [address], [address], 11/07/2024 10:55:57 11/08/1911/07/2024 COMPL ETE BLOOD COUNT % lymphocytes 27.0 % 11.0-4 7.0 normal Not Available [facility] [address] [place] [address], [address], 11/07/2024 10:55:57 11/08/1911/07/2024 COMPL ETE BLOOD COUNT % monocytes 9.7 % 0.0-11 .0 normal Not Available [facility] [address] [place] [address], [address], 11/07/2024 10:55:57 11/08/19 25 11/07/2024 COMPL ETE BLOOD COUNT % eosinophils 2.5 % 0.0-7. 0 normal Not Available [facility] [address] [place] [address], [address], 11/07/2024 10:55:57 11/08/19 25 11/07/2024 COMPL ETE BLOOD COUNT % basophils 0.5 % 0.0-3. 0 normal Not Available [facility] [address] [place] [address], [address], 11/07/2024 10:55:57 11/08/19 25 11/07/2024 COMPL ETE BLOOD COUNT nucleated red cells 0.1 % 0.0-0. 9 normal Not Available [facility] [address] [place] [address], [address], 11/07/2024 10:55:57 11/08/19 25 11/07/2024 COMPL ETE BLOOD COUNT nucleated RBCs, absolute 0.00 10*3/ uL not estab. normal Not Available [facility] [address] [place] [address], [address], 11/07/2024 10:55:57 11/08/1911/07/2024 ESR, AUTOM ATED ESR, automated 9 mm 0-29 normal Not Available [facility] [address] [place] [address], [address], 11/07/2024 11:32:43 11/08/1911/07/2024 COMP. METAB OLIC PANEL glucose 93 mg/dL 74-100 normal Not Available [facility] [address] [place] [address], [address], 11/07/2024 11:35:26 11/08/19 25 11/07/2024 COMP. METAB OLIC PANEL blood urea nitrogen 14 mg/dL 6-20 normal Not Available [facility] [address] [place] [address], [address], 11/07/2024 11:35:26 11/08/19 25 11/07/2024 COMP. METAB OLIC PANEL creatinine 0.76 mg/dL 0.50-0 .95 normal Not Available [facility] [address] [place] [address], [address], 11/07/2024 11:35:26 11/08/19 25 11/07/2024 COMP. METAB OLIC PANEL BUN/creatini ne ratio 18 (calc ) 10-20 normal Not Available [facility] [address] [place] [address], [address], 11/07/2024 11:35:26 11/08/19 25 11/07/2024 COMP. METAB OLIC PANEL sodium 143 mmol/ L 136-14 5 normal Not Available [facility] [address] [place] [address], [address], 11/07/2024 11:35:26 11/08/19 25 11/07/2024 COMP. METAB OLIC PANEL potassium 4.3 mmol/ L 3.4-5. 0 normal Not Available [facility] [address] [place] [address], [address], 11/07/2024 11:35:26 11/08/19 25 11/07/2024 COMP. METAB OLIC PANEL chloride 106 mmol/ L 98-107 normal Not Available [facility] [address] [place] [address], [address], 11/07/2024 11:35:26 11/08/19 25 11/07/2024 COMP. METAB OLIC PANEL carbon dioxide 23 mmol/ L 22-31 normal Not Available [facility] [address] [place] [address], [address], 11/07/2024 11:35:26 11/08/19 25 11/07/2024 COMP. METAB OLIC PANEL anion gap 14 (calc ) 7-25 normal Not Available [facility] [address] [place] [address], [address], 11/07/2024 11:35:26 11/08/19 25 11/07/2024 COMP. METAB OLIC PANEL calcium 10.3 mg/dL 8.6-10 .2 high Not Available [facility] [address] [place] [address], [address], 11/07/2024 11:35:26 11/08/19 25 11/07/2024 COMP. METAB OLIC PANEL total protein 7.7 g/dL 6.4-8. 3 normal Not Available [facility] [address] [place] [address], [address], 11/07/2024 11:35:26 11/08/19 25 11/07/2024 COMP. METAB OLIC PANEL albumin 4.6 g/dL 3.5-5. 2 normal Not Available [facility] [address] [place] [address], [address], 11/07/2024 11:35:26 11/08/19 25 11/07/2024 COMP. METAB OLIC PANEL globulin 3.1 1.5-4. 5 normal Not Available [facility] [address] [place] [address], [address], 11/07/2024 11:35:26 11/08/19 25 11/07/2024 COMP. METAB OLIC PANEL albumin/glob ulin ratio 1.5 (calc ) 1.1-2. 5 normal Not Available [facility] [address] [place] [address], [address], 11/07/2024 11:35:26 11/08/19 25 11/07/2024 COMP. METAB OLIC PANEL bilirubin, total 0.3 mg/dL 0.1-1. 0 normal NOTE: New refer ence range . Not Available [facility] [address] [place] [address], [address], 11/07/2024 11:35:26 11/08/19 25 11/07/2024 COMP. METAB OLIC PANEL alkaline phosphatase 89 U/L 30-121 normal Not Available [facility] [address] [place], [address], 11/07/2024 11:35:26 11/08/19 25 11/07/2024 COMP. METAB OLIC PANEL AST 27 U/L 0-32 normal Not Available [facility] [address] [place], [address], 11/07/2024 11:35:26 11/08/19 25 11/07/2024 COMP. METAB OLIC PANEL ALT 27 U/L 0-33 normal Not Available [facility] [address] [place], [address], 11/07/2024 11:35:26 11/08/19 25 11/07/2024 COMP. METAB OLIC PANEL eGFR 91 >= 60 normal NOT E New calcu latio n for GFR (CKD- EPI 2020) is formu lated witho ut race adjus tment facto rs at the recom menda tion of the [employer] and Ameri can Socie ty of Nephr ology . This calcu latio n has not been valid ated in pregn ant women . For pedia tric patie nts refer to https ://goldie mast.dorothy esparza.o rg/pr dario brooke s/KDO QI/gf r_cal culat orPed Not Available [facility] [address] [place], [address], 11/07/2024 11:35:26 11/04/19 25 11/03/2024 optic al coher ence tomog alondra, retin a No observ ation record ed. [email or web address] Not Available 2024 12:18:50 11/04/19 25 11/03/2024 visua l field test No observ ation record ed. [email or web address] Not Available 2024 14:03:31 Result Notes None recorded. Problems Name Problem SNOMED Code Status Onset Date Resolution Date Notes Provider Name and Address Organization Details Recorded Time [facility]156359 [facility] Rhe[facility] 85728174 [facility] 14:24:[facility] Problem Notes Documentation Provider Name and Address Organization Details Recorded Time Rheumatology Note : [address] [address]DEJGY, Polly (Legal name: Bonnie Humphrey) (id #[id number], : 1965) [address] [address] Encounter Summary - Progress Note Date Printed: 11/08/2024 Documents sent via fax will include the [...] received this fax in error, please visit [email or web address] to notify the sender and confirm that the information will be destroyed. If you do not have internet access, please call to notify the sender and confirm that the information will be destroyed. Thank you for your attention and cooperation. [ID:[id number]] Patient Bonnie Humphrey (59yo, F) #[id number] 1965 Patient Demographics: Address [address] [place] [address] Work Phone Encounter Notes: Encounter Reason/DateNone recorded 11/07/2024 - 09:00AM - RHEUMATOLOGY SB History of Present [id number] with degenerative arthritis and seronegative inflammatory arthritis. Savana was last seen here in our rheumatology department 10/19/23. Only complaint is some symptoms of carpal tunnel in the right hand. She is on low-dose diclofenac 50 mg twice a day only as needed along with hydroxychloroquine 400 mg alternate with 200 mg every other day In general has done very well.Participating in normal activities. Pt states her mom is a 91yo with advanced dementia. She has to take care of her. Stays very busy. Pt state she had her eye exam last week. Review of SystemsROS as noted in the HPI Vitals Ht: 5 ft 5 in Awzepg9811/07/2024 09:15 am Wt: 162 lbs With basxfyh3411/07/2024 09:19 am BMI: 2709 09:19 am BP: 110/74 sitting R arm11/07/2024 09:19 am BP Cuff Size: adult11/07/2024 09:15 am Pulse: 72 bpm kxsnkpz1111/07/2024 09:19 am RR: 1609 09:15 am O2Sat: 98% Room Air at Rest11/07/2024 09:19 am Results/Interpretations Physical ExamConstitutional:General Appearance: healthy-appearing, well-nourished, and well-developed. [...] of all extremities;Stable. Extremities: no edema (Stable). Neurological Exam:Sensation:abnormal;Posi tive [place] and [place]. Procedure DocumentationNone recorded Assessment and Plan1. Body mass index 25-29 - overweight- she is doing very well. Working on her diet and exercise most recent BMI is 27Z68.26: Body mass index [BMI] 26.0-26.9, adult 2. Generalized osteoarthritis- Generalized osteoarthritis. Has done very well. She has maintain good physical activity, exercise and weight loss program.Suggested to maintain the use of diclofenac 50 mg twice a day with meals as needed. Maintain low-carb diet. Encouraged fruits and vegetables intake and restrict red meat. Refills given. M15.9: Polyosteoarthritis, unspecified diclofenac potassium 50 mg tablet - Take 1 tablet(s) twice a day by oral route for 90 days. Qty: (180) tablet Refills: 1 Pharmacy: [facility][id number] Note to Pharmacy: dose changed. 3. Seronegative rheumatoid arthritis- 59-year-old with seronegative rheumatoid arthritis and clinically stable.She is doing very well. No active synovitis or effusion. Range of motion is intact. Strength is physiologic. The hand symptoms are predominantly from carpal tunnel. Continue with hydroxychloroquine 400 mg alternate with 200 mg every other day. Suggested to follow-up with an eye examination every 12 months. Refills given. M06.00: Rheumatoid arthritis without rheumatoid factor, unspecified site hydroxychloroquine 200 mg tablet - take as directed Qty: (135) tablet Refills: 3 Pharmacy: [facility][id number] Note to Pharmacy: 400mg alternate with 200 mg qod. 4. Long-term drug therapy- obtain labs to follow all the current medications. Needs eye examination to follow up on hydroxychloroquine, she will schedule the eye examination on her birthday month.Z79.899: Other residential (current) drug therapy CBC ESR, AUTOMATED CMP 5. Bilateral carpal tunnel syndrome-Clinical evidence of carpal tunnel syndrome. Suggested use of cock-up wrist braces at night for now. Reassess if it still symptomatic obtain nerve conduction studies.G56.03: Carpal tunnel syndrome, bilateral upper limbs Return to Office TROY WEST MD for LEVEL 2 at OPHTHALMOLOGY [facility] on 11/05/2025 at 10:00 AM OPHTH_VISUAL_FIELDS for VISUAL FIELD at OPHTHALMOLOGY [facility] on 11/05/2025 at 09:45 AM MANJULA ELAM MD for RHEUM RECHECK at RHEUMATOLOGY [facility] on 11/07/2025 at 04:00 PM Patient Medical History: Allergies List Allergies not reviewed (last reviewed 11/03/2024) CODEINE Medications Reviewed Medications NameDate Source buPROPion HCL SR 100 mg tablet,12 hr sustained-releaseTAKE 1 TABLET BY MOUTH EVERY DAY04/22/24 filled surescripts busPIRone 10 mg zdkbut76/22/24 filled surescripts cholesterol 2.5 gram-28 kcal/10 gram oral powderApply to legs twice daily for 3 months.01/26/24 prescribed BRUCE FIGUEROA PA-C diclofenac potassium 50 mg tabletTake 1 tablet(s) twice a day by oral route for 90 days.11/07/24 prescribed MANJULA ELAM MD estradioL 0.01% (0.1 mg/gram) vaginal cream08/09/23 filled surescripts hydroxychloroquine 200 mg tablettake as pxnxoyfg42/16/25 prescribed MANJULA ELAM MD levothyroxine 112 mcg tabletTAKE 1 TABLET BY MOUTH DAILY03/01/24 filled surescripts lovastatin 40 mg hidtuc06/05/24 filled surescripts oseltamivir 75 mg qeextvq85/20/25 filled surescripts promethazine-DM 6.25 mg-15 mg/5 mL oral syrup04/13/24 filled surescripts simvastatin 20 mg tabletTAKE 1 TABLET BY MOUTH EVERY DAY04/22/24 filled surescripts triamcinolone acetonide 0.1 % dental pasteapply topically to oral lesion three times daily12/15/23 filled surescripts valsartan 40 mg bsgnxe19/15/25 filled surescripts Family HistoryFamily History not reviewed (last reviewed 11/03/2024) Mother - Cataract - Age related macular degeneration - dry Past Medical HistoryPast Medical History not reviewed (last reviewed 11/03/2024) Arthritis:Y Vaccine HistoryVaccines not reviewed (last reviewed 10/19/2023) Vaccine Type Date Amt. Route Site [facility] Lot # Mfr. Exp. 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 Diphtheria, Tetanus, Pertussis Tdap 06/10/24 0.5 mL Intramuscular Deltoid, Left PG3RP [employer] 09/01/26 Electronically Signed by: MANJULA ELAM MD MANJULA ELAM MD [address] [place] [address], [address], [facility] 11/13/2024 12:52:34 Procedures Surgical History Date Name Laterality Status Provider Name and Address Organization Details Recorded Time 025 OCT/Retina completed Malik Pride [facility] 11/03/2024 11:15:53 025 Visual Field Extended completed TROY WEST MD [address] [place] [address], [address], [facility] 11/03/2024 12:18:15 024 DAK - Biopsy, [facility]ential [facility]/17/[facility] 16:00:09 024 DAK - Cryo AK completed Kayli Ozunadcjoel [facility] 11/18/2023 10:36:03 024 OCT/Retina completed TROY WEST MD [address] [place] [address] [place], [address], [facility] 03/01/2023 15:25:28 024 Visual Field Extended completed TROY WEST MD [address] [place] [address] [place], [address], [facility] 03/01/2023 15:25:30 023 OCT/Retina completed TROY WEST MD [address] [place] [address], [address], [facility] 02/26/2022 10:29:26 023 Visual Field Extended completed TROY WEST MD [address] [place] [address], [address], [facility] 02/26/2022 10:29:27 021 OCT/Retina completed TROY WEST MD [address] [place] [address], [address], [facility] 06/28/2020 15:11:00 021 Visual Field Extended completed TROY WEST MD [address] [place] [address], [address], [facility] 06/28/2020 15:11:02 021 Electromyography (EMG) with Nerve Conduction Study (NCV) completed Yumiko Corley (Nicky) [facility] 2020 11:11:14 Carpal tunnel surgery completed Daija Baugh [facility] 05/10/2017 10:43:16 Removal of tonsils completed Daija molina [facility] 05/10/2017 10:43:25 Imaging Results None recorded. Procedure Notes None recorded. Medical Equipment None Reported. Allergies Allergen ID Allergen Name Allergen Category Reaction Reaction Severity Criticality Documentation Date Start Date Code Code System Note Provider Name and Address Organization Details Recorded Time 989177 codeine medicatio n Not available Not available Not available 02/18/2016 2670 RxNorm [facility] 10:18:00 Medications Name Sig Start [...] Not Avai lable Vitals Date Recorded Body height Respiratory rate Body mass index (BMI) Body weight Oxygen saturation Oxygen saturation in Arterial blood by Pulse oximetry Heart rate Systolic And Diastolic Provider Name and Address Organization Details Last Updated DateTime 5 165.1 cm 16 /min 27 kg/m2 00271.9 6 g 98 % 98 % 72 /min 110/74 mm[Hg] Clay Canseco [facility] 5 09:19:49 Social History Question Answer Notes LastModified by [email or web address] Details LastModified Time Tobacco Smoking Status Former Smoker QUIT 2014 Fede Dye [facility] 06/28/2020 14:25:09 How Much Tobacco Do You Chew? None [email or web address] Information not available 05/11/2018 Live Alone Or With Others? With Others Information not available 02/15/2020 Marital Status Informatio n not available 02/15/2020 What Was The Date Of Your Most Recent Tobacco Screening? 11/07/2024 Information not available 11/07/2024 How Much Tobacco Do You Smoke? 0.5 PPD Information not available 05/11/2018 Has Tobacco Cessation Counseling Been Provided? No [email or web address] Information not available 05/11/2018 How Many Years Have You Smoked Tobacco? 10 [email or web address] Information not available 05/11/2018 Sex: Female Functional Status Question Answer Note LastModified by [employer] Details LastModified Time What is your level of alcohol consumption? None [email or web address] Information not available 05/10/2017 Do you or have you ever used smokeless tobacco? 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 Never used electronic cigarettes [email or web address] Information not available 11/14/2018 Mental Status None recorded. Family History Relationship Description Onset Age of this Age Resolved Age Notes LastModified by Organization Details LastModified Time Mother Cataract [email or web address] Not available 06/28/2020 14:24:53 Mother Age related macular degeneration dry [email or web address] Not available 09:46:46 Medical History Condition Response [...] dose 05/31/2020 completed Amy Newton [facility] 06/24/2020 10:41:04 COVID-19, mRNA, LNP-S, PF, 30 mcg/0.3 mL dose 06/21/2020 completed Amy Newton [facility] 06/24/2020 10:41:04 Past Encounters Encounter ID Performer Location Encounter Start Date Encounter Closed Date Diagnosis/Indication Diagnosis SNOMED-CT Code Diagnosis ICD10 Code Diagnosis IMO Codes Diagnosis Note [id number] TROY WEST MD OPHTHALMO [address] [place] [address] 11/03/2024 10:43:39 11/03/2024 12:19:43 Long-term drug therapy 187711590 Z79.899 no signs of toxicity discussed risks of plaquenil therapy mac normal oct mac normal vf normal 7-8 years of tx1 year oct mac, hvf [id number] MANJULAIVON ELAM MD [facility]ATOL [facility] [address] [place] [address] 11/07/2024 09:13:52 11/13/2024 17:09:30 Body mass index 25-29 - overweight 768218060 Z68.26 she is doing very well. Working on her diet and exercise most recent BMI is 27 Generalize d osteoarthritis 392720217 M15.9 Generalize d osteoarthr itis. Has done very well. She has maintain good physical activity, exercise and weight loss program.[place] ggested to maintain the use of diclofenac 50 mg twice a day with meals as needed. Maintain low-carb diet. Encouraged fruits and vegetables intake and restrict red meat. Refills given. Seronegati ve rheumatoid arthritis 546645807 M06.00 59-year-ol d with seronegati ve rheumatoid arthritis and clinically stable.She is doing very well. No active synovitis or effusion. Range of motion is intact. Strength is physiologi c. The hand symptoms are predominan tly from carpal tunnel. Continue with hydroxychl oroquine 400 mg alternate with 200 mg every other day. Suggested to follow-up with an eye examinatio n every 12 months. Refills given. Long-term drug therapy [id number] Z79.899 obtain labs to follow all the current medication s. Needs eye examinatio n to follow up on hydroxychl oroquine, she will schedule the eye examinatio n on her birthday month. Bilateral carpal tunnel syndrome [id number] G56.03 Clinical evidence of carpal tunnel syndrome. Suggested use of cock-up wrist braces at night for now. Reassess if it still symptomati c obtain nerve conduction studies. Health Concerns Section Related Observation LastModified by Organization Detai ls LastModified Time None Recorded Concern Status LastModified by Organization Details LastModified Time None Recorded Payers Encounter Date Sequence Insurance Name Policy Number Policy Barry Covered Member ID Barry Member ID Guarantor Name 11/07/2024 1 [place] [id number] Dangelo Humphrey [id number] Bonnie Humphrey Notes Date Note Type Note Provider Name and Address Organization Details Recorded Time 11/07/2024 text/html ROS as noted in the HPI 59-year-old with degenerative arthritis and seronegative inflammatory arthritis. Savana was last seen here in our rheumatology department 10/19/23. Only complaint is some symptoms of carpal tunnel in the right hand. She is on low-dose diclofenac 50 mg twice a day only as needed along with hydroxychloroquine 400 mg alternate with 200 mg every other day In general has done very well.Participating in normal activities. Pt states her mom is a 91yo with advanced dementia. She has to take care of her. Stays very busy. Pt state she had her eye exam last week. MANJULA ELAM MD [facility] [place], [address], [facility] 11/08/2024 08:23:05 OBGyn Episode No OBEpisode recorded.
--- NOTE | 2024-12-19 17:01 | MM_ITS ---
PROCEDURE INFORMATION: Exam: MG Bilateral Screening 3D Mammography Exam date and time: 12/19/2024 5:00 PM Age: 59 years old Clinical indication: Screening mammogram TECHNIQUE: Imaging protocol: Bilateral Screening tomosynthesis and 2D mammography including computer-aided detection (CAD) when performed. COMPARISON: 1. MG MM DIG SCREENING MAMM BI W/CAD 12/14/2023 4:33 PM 2. MG MM DIG SCREENING MAMM BI W/CAD 11/04/2022 4:16 PM 3. MG MM DIG SCREENING MAMM BI W/CAD 10/08/2021 4:45 PM 4. MG MM DIG SCREENING MAMM BI W/CAD 10/07/2020 3:37 PM FINDINGS: MAMMOGRAPHY: Breast composition: There are scattered areas of fibroglandular density. Mass: None. Architectural distortion: No new or suspicious architectural distortion. Calcifications: No new or suspicious calcifications are present Asymmetric density: No new or suspicious asymmetric density is present Skin thickening: None. Axillary adenopathy: None. IMPRESSION: No mammographic evidence of malignancy. Recommend annual screening mammography unless otherwise clinically indicated. A ASSESSMENT: BI-RADS category 1: Negative.
--- OUTSIDE RECORDS SUMMARY | 2024-12-19 17:01 | XMS_ITS | Continuity of Care Document ---
Author Organization [employer] [facility] Address [address] [place] [address] Assessment Encounter Date Assessment Date Assessment LastModified by Organization Details LastModified Time 12/12/2024 12/12/2024 Savana Humphrey presented with feeling full after eating small amounts, joint stiffness, and feeling checked out while on Wellbutrin 100mg SR daily. She recently lost her mother and is experiencing significant stress. Her blood pressure was well-controlled at 115/70. Management included increasing Wellbutrin to 150mg XR daily, continuing valsartan, simvastatin, and Synthroid 112mcg, ordering thyroid function tests, and recommending a multivitamin for calcium and vitamin D. Laboratory work was ordered to screen for diabetes. [email or web address] Not available 12/12/2024 18:18:38 Plan of Treatment Reminders Order Date Submit Date Provider Last Modified By Organization Details Last Modified Time Details Appointments ANNUAL EXAM 2025 09:00A M Bonita Matthew APRN Not available Not available Not available Lab TSH, ultra-sen sitive, serum 2024 025 [place] [facility] [address] [place], [address], 12/13/2024 04:07:34 CMP, serum or plasma 2024 025 [place] [facility] [address] [place], [address], 12/13/2024 04:07:33 HbA1c (hemoglob in A1c), blood 2024 [place] [facility] [address], [place], [address], 12/13/2024 04:07:34 Referral None recorded. Procedures None recorded. Surgeries None recorded. Imaging None recorded. Medication Orders Wellbutri n XL 150 mg 24 hr tablet, extended release [address] [id number], [address] [place], [address], 12/12/2024 11:23:24 levothyro xine 112 mcg tablet [address] [facility], [address] [place], [address], 12/12/2024 11:23:56 simvastat in 20 mg tablet [address] [facility], [address] [place], [address], 12/12/2024 11:26:56 valsartan 80 mg tablet [address] [facility], [address] [place], [address], 12/12/2024 11:25:57 Patient TargetsNo targets recorded. Patient InstructionsNo instructions recorded. Reason for Referral None Reported. 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 201606/02/2019 Problem Code: M05.09; Problem Code Type: ICD-10; Not Available [facility] 2 20:52:58 Hypothyr oidism 25679413 Completed 201603/19/2017 Problem Code: E03.8; Problem Code Type: ICD-10; Not Available [facility] 2 20:52:57 Mixed hyperlip idemia 943266413 Completed 201606/30/2016 Problem Code: E78.2; Problem Code Type: ICD-10; Not Available [facility] 2 20:52:58 Menopaus e present 211897763 Active 2016 Problem Code: N95.1; Problem Code Type: ICD-10; Not Available [facility] 2 20:52:58 Acquired hypothyr oidism 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 Active 2016 Problem Code: 244.8; Problem Code Type: ICD-9; Not Available [facility] 2 20:53:01 Menopaus al symptom 34190174 Active 2016 Problem Code: 627.2; Problem Code Type: ICD-9; Not Available [facility] 2 20:53:02 Abnormal weight gain 435170285 Completed 201601/30/2017 Problem Code: R63.5; Problem Code Type: ICD-10; Not Available [facility] 2 20:52:59 Viral infectio n of central nervous system 060026756 Completed 201603/29/2017 Problem Code: A88.8; Problem Code Type: ICD-10; Not Available [facility] 2 20:52:57 Divertic ulum of Eustachi an tube 860762973 Completed 201603/29/2017 Problem Code: H69.82; Problem Code Type: ICD-10; Not Available [facility] 2 20:52:59 Epidemic vertigo 403692104 Completed 201603/29/2017 Problem Code: 078.81; Problem Code Type: ICD-9; Not Available [facility] 2 20:53:01 Dysfunct ion of eustachi an tube 51255503 Completed 201603/29/2017 Problem Code: 381.81; Problem Code Type: ICD-9; Not Available [facility] 2 20:53:02 Abnormal weight gain 203944585 Completed 201705/18/2017 Problem Code: R63.5; Problem Code Type: ICD-10; Not Available [facility] 2 20:52:59 Screenin g mammogra phy Completed 201707/31/2017 Problem Code: Z12.31; Problem Code Type: ICD-10; CAL MYJACQUESR null, [employer] 2 14:06:59 Screenin g mammogra phy Completed 201708/17/2017 Problem Code: V76.12; Problem Code Type: ICD-9; CAL JAZMYNENEAR null, [employer] 2 14:06:59 Screenin g mammogra phy Completed 201806/02/2019 Problem Code: Z12.31; Problem Code Type: ICD-10; CAL JAZMYNENEAR null, [employer] 2 14:06:59 Hypothyr oidism 35490806 Active 2019 Not Available [facility] 2 20:52:57 Body mass index 25-29 - overweig ht 633251164 Completed 201912/17/2019 Problem Code: Z68.26; Problem Code Type: ICD-10; Not Available [facility] 2 20:53:03 Screenin g mammogra phy Completed 201912/17/2019 Problem Code: Z12.31; Problem Code Type: ICD-10; CAL MYJACQUESR null, [employer] 2 14:06:59 General examinat ion of patient Active 2019 Not Available [facility] 2 20:52:59 Closed fracture of proximal phalanx of great toe 554592074 Completed 201905/29/2020 Problem Code: S92.415A ; Problem Code Type: ICD-10; Not Available [facility] 2 20:52:59 Body mass index 25-29 - overweig 440138552 Active 2019 Problem Code: Z68.25; Problem Code Type: ICD-10; Not Available [facility] 2 20:53:01 Marge bronson 69169063 Active 2023 Lucia Tiff, [facility] [address] [place], [address] , [email or web address] 4 17:20:21 Dysthymi a 33505162 Active 2024 Lucia Matthew, [facility] [address] [place], [address] , [email or web address] 5 10:57:04 Problem Notes None recorded. Procedures Surgical History Date Name Laterality Status Provider Name and Address Organization Details Recorded Time 12/14/19 24 Most Recent Mammogram completed CAL PRATER [email or web address] 06/19/2024 10:13:01 12/08/19 21 Date of Last Pap Smear completed Gris Farfan [facility] 04/27/2022 11:06:42 05/05/19 17 tonsillectomy and adenoidectomy completed Not Available [facility] 10/28/2021 22:56:06 Imaging Results None recorded. Procedure Notes None recorded. Medical Equipment None Reported. Allergies Allergen ID Allergen Name Allergen Category Reaction Reaction Severity Criticality Documentation Date Start Date Code Code System Note Provider Name and Address Organization Details Recorded Time 47654 Product containin g penicilli n (product) medicatio n Not available Not available Not available 10/28/2021 37617 8001 SNOMED Grismarianna krause, [employer] 3 11:04:40 56380 codeine sulfate medicatio n Not available Not available Not available 10/28/2021 75716 RxNorm Not Available [facility] 2 22:57:20 Medications Name Sig Start Date Stop Date Status Note LastModified by Organization Details LastModified Time promethazin e-DM 6.25 mg-15 mg/5 mL oral syrup TAKE 5 ML BY MOUTH EVERY 4 TO 6 HOURS FOR COUGH FOR 10 DAYS 06/19 completed Not Available Not Available Not Available clindamycin HCl 300 mg capsule TAKE 1 CAPSULE TWICE DAILY 12/16 completed Not Available Not Available Not Available cetirizine 10 mg tablet Take 1 tablet(s) by mouth daily 03/19 completed Not Available Not Available Not Available azithromyci n 250 mg tablet TAKE 2 TABLETS BY MOUTH ON DAY 1, THEN TAKE 1 TABLET DAILY ON DAYS 2-5 06/19 completed Not Available Not Available Not Available Synthroid 100 mcg tablet Take 1 tablet(s) by mouth daily 06/03 completed Not Available Not Available Not Available prednisone 5 mg tablet 10 pills po today and decrease by one pill each day 01/28 completed Not Available Not Available Not Available valsartan 80 mg tablet Take 1 tablet every day by oral route in the morning. 2024 active Not Available Not Available Not Avai lable acyclovir 400 mg tablet TAKE 1 TABLET BY MOUTH THREE TIMES A DAY FOR 7 DAYS 06/19 completed Not Available Not Available Not Available bupropion HCl SR 100 mg tablet,12 hr sustained-r elease TAKE 1 TABLET BY MOUTH EVERY DAY 12/12 completed Not Available Not Available Not Available triamcinolo ne acetonide 0.1 % dental paste apply topically to oral lesion three times daily 06/19 completed Not Available Not Available Not Available doxycycline monohydrate 100 mg capsule take 1 capsule (100 mg) by oral route 2 times per day 05/28 completed Not Available Not Available Not Available simvastatin 20 mg tablet TAKE 1 TABLET BY MOUTH EVERY DAY AT BEDTIME 2024 active Not Available Not Available Not Avai lable oseltamivir 75 mg capsule TAKE 1 CAPSULE BY MOUTH TWICE A DAY FOR 5 DAYS 06/19 completed Not Available Not Available Not Available buspirone 10 mg tablet TAKE ONE TABLET BY MOUTH TWICE DAILY NEEDED FOR ANXIETY 12/12 completed Not Available Not Available Not Available diclofenac potassium 50 mg tablet TAKE 1 TABLET BY MOUTH THREE TIMES A DAY WITH FOOD NEEDED active Not Available Not Available No t Available diclofenac sodium 75 mg tablet,silvano yed release take 1 tablet (75 mg) by oral route 2 times per day 12/16 completed Not Available Not Available Not Available etodolac 400 mg tablet one po bid 05/04 completed Not Available Not Available Not Available hydroxychlo roquine 200 mg tablet TAKE 400 MG BY MOUTH ALTERNATE WITH 200MG EVERY OTHER DAY DIRECTED active Not Available Not Available No t Available estradiol 0.01% (0.1 mg/gram) vaginal cream INSERT 1 APPLICATO RFUL VAGINALLY TWICE A WEEK 12/12 completed Not Available Not Available Not Available methylpredn isolone 4 mg tablets in a dose pack TAKE 6 TABLETS ON DAY 1 DIRECTED ON PACKAGE AND DECREASE BY 1 TAB EACH DAY FOR A TOTAL OF 6 DAYS 12/16 completed Not Available Not Available Not Available fluticasone propionate 50 mcg/actuati on nasal spray,suspe nsion inhale 1 spray (50 mcg) in each nostril by intranasa l route 2 times per day 01/15 completed Not Available Not Available Not Available levothyroxi ne 112 mcg tablet TAKE 1 TABLET (112 MCG) BY MOUTH ONCE DAILY ON AN EMPTY STOMACH 30 MINUTES BEFORE BREAKFAST 2024 active Not Available Not Available Not Avai lable valsartan 40 mg tablet TAKE 1 TABLET EVERY DAY BY ORAL ROUTE IN THE MORNING, FOR BLOOD PRESSURE 06/19 completed Not Available Not Available Not Available Wellbutrin XL 150 mg 24 hr tablet, extended release Take 1 tablet every day by oral route. 2024 active Not Available Not Available Not Avai lable chlorhexidi ne gluconate 0.12 % mouthwash SWISH AND SPIT OUT 1 CAPFUL 2 TO 3 TIIMES A DAY DIRECTED 12/16 completed Not Available Not Available Not Available Contrave 8 mg-90 mg tablet,exte nded release one po q day for 7 days, then 1 po bid for 7 days, then 2 in the a.m. and 1 in the p.m. for 7 days then 2 po bid 03/19 completed Not Available Not Available Not Available Vitals Date Recorded Body height Body mass index (BMI) Body weight Body temperature Heart rate Oxygen saturation Oxygen saturation in Arterial blood by Pulse oximetry Systolic And Diastolic Provider Name and Address Organization Details Last Updated DateTime 165.1 cm 27.6 kg/m2 64926.9 g 97.8 [degF] 79 /min 95 % 95 % 115/70 mm[Hg] CAL SAMANOMARKO [employer] [employer] 10:51:57 Social History Question Answer Notes LastModified by Organizat ion Details LastModified Time Tobacco Smoking Status Former Smoker Gris Adolph krause, [employer] [employer] 04/27/2022 11:05:13 Do You Have An Advance Directive? No Information n ot available 12/16/2021 Is Your Home Air Conditioned? Yes Information not available 12/16/2021 Are You Blind Or Do You Have Difficulty Seeing? No Information n ot available 12/16/2021 In The 14 Days Before Symptom Onset, Have You Had Close Contact With A Laboratory-confirm ed COVID-19 While That Case Was Ill? No Information n ot available 12/16/2021 In The 14 Days Before Symptom Onset, Have You Had Close Contact With A Person Who Is Under Investigation For COVID-19 While That Person Was Ill? No Information not available 12/16/2021 Have You Been To An Area Known To Be High Risk For COVID-19? No Information not available 12/16/2021 Are You Deaf Or Do You Have Serious Difficulty Hearing? No Information not available 12/16/2021 What Type Of Diet Are You Following? 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 6-10yearssinc elastcigarett e Information not available 12/14/2022 Are There Any Guns Present In Your Home? No Information not available 12/16/2021 Do You Have A Medical Power Of Adjustment Examiner? No Information not available 12/16/2021 What Was The Date Of Your Most Recent Tobacco Screening? 12/12/2024 Information not available 12/12/2024 What Is Your Current Pack Years? 20-29packyear s Information not available 06/15/2023 What Is Your Relationship Status? Information not available 12/16/2021 Do You Use Your Seat Belt Or Car Seat Routinely? Yes Information not available 12/16/2021 Do You Have Smoke And Carbon Monoxide Detectors In Your Home? Yes Information not available 12/16/2021 Are You Passively Exposed To Smoke? No Information no t available 12/16/2021 Are There Any Smokers In Your House? No Information not available 12/16/2021 Do You Use Sunscreen Routinely? No Information not available 12/16/2021 Has Tobacco Cessation Counseling Been Provided? No Information not available 12/16/2021 Have You Recently Traveled Abroad? No Information not available 12/16/2021 Do You Have Difficulty Walking Or Climbing Stairs? No Information not available 12/16/2021 Are You Currently In School? No Information not available 12/16/2021 Do You Have Any Dietary Restrictions? No Information not available 12/16/2021 Sex: Female Functional Status Question Answer Note LastModified by Organizat ion Details LastModified Time Do you use any illicit or recreational drugs? No Information not available 12/16/2021 Do you or have you ever used any other forms of tobacco or nicotine? No Information not available 12/16/2021 What is your level of alcohol consumption? None Information not available 12/16/2021 Are you currently employed? Yes Information not available 12/16/2021 Do you have transportation difficulties? No Information not available 12/16/2021 Do you have difficulty doing errands alone? No Information not available 12/16/2021 Are you able to care for yourself independently? Yes Information not available 12/16/2021 Do you have difficulty dressing, bathing, grooming, or toileting? No Information not available 12/16/2021 Mental Status Question Answer Note LastModified by Organization D etails LastModified Time Do you have difficulty concentrating, remembering or making decisions? No Information no t available 12/16/2021 Family History Nothing Reported. Medical History Condition Response Hypothyroidism Y High Cholesterol Y Rheumatoid Arthritis Y Gynecological History Statement/Question Response Date of Last Pap Smear 12/07/2020 Most Recent Mammogram 12/14/2023 Obstetrics History GPAL:G 0 P 0 0 0 0 Immunizations Vaccine Type Date Status Note Provider Kahlil puga and Address Organization Details Recorded Time COVID-19, mRNA, LNP-S, PF, 30 mcg/0.3 mL dose 1 completed Gris krause, [facility] 04/27/2022 11:04:48 COVID-19, mRNA, LNP-S, PF, 30 mcg/0.3 mL dose [address] [employer] 04/27/2022 11:04:48 zoster recombinant 3 completed Not Available [facility] 12/12/2024 10:47:07 zoster recombinant 4 completed Not Available [facility] 12/12/2024 10:47:07 Past Encounters Encounter ID Performer Location Encounter Start Date Encounter Closed Date Diagnosis/Indication Diagnosis SNOMED-CT Code Diagnosis ICD10 Code Diagnosis IMO Codes Diagnosis Note [id number] Lucia Matthew[address] [address] 12/12/2024 10:45:49 12/12/2024 11:36:20 Preventive procedure 604531641 Z00.00 14227159 Start Womens MVI daily with calcium and Vit D. Essential hypertension 00012843 I10 No med changes today, continue valsartan. DASH diet, exercise, and healthy weight encouraged . Acquired hypothyroidism 026678791 E03.9 Continue current meds. Labs today. Mixed hyperlipidemia 267 711109 E78.2 Low fat low carb diet and exercise emphasized . Continue statin. Dysthymia 56116413 F34.1 80441 Change wellbutrin to X< 150 mg daily tablet. Diabetes m ellitus screening 190972918 Z13.1 15099 Overweight in adulthood with body mass index of 25 or more but less than 30 745612483 Z68.27 85308616 Health Concerns Section Related Observation LastModified by Organization Detai ls LastModified Time None Recorded Concern Status LastModified by Organization Details LastModified Time None Recorded Payers Encounter Date Sequence Insurance Name Policy Number Policy Barry Covered Member ID Barry Member ID Guarantor Name 12/12/2024 1 [place] ([facility]) [id number] Dangelo Humphrey [id number] Savana Humphrey Notes Date Note Type Note Provider Name and Address Organization Details Recorded Time 12/12/2024 text/html Annual WellnessReported by PatientSocial/Behavior al HistoryFor diet and nutrition, patient reportsdiet is high in fat, low in fiberandhigh carbohydrate mealsbut reportsdiscussed vitamin and supplement use,discussed maintaining calcium balance, anddiscussed diet improvement. For fracture risk, patient reportshistory of fracturesbut reportsno recent explained fractureandno sudden unexplained fractures. For physical activity, patient reportsexercises on a regular basisanddiscussed weightbearing activities. For additional lifestyle factors, patient reportsno tobacco useandno alcohol intake.Mental Status:For depression risk, patient reportsfeels sad, empty, or tearful,loss of interest in activities,loss of energy, andhistory of depressionbut reportsno significant changes in weight,no sleep disturbances or insomnia,no agitation,no feelings of worthlessness or guilt,no thoughts of suicide, andno history of mood disorders.Functional AbilityFor hearing, patient reportsno loss of hearing. For vision, patient reportsno vision problems.ROS as noted in the HPI History of Present IllnessSavana Humphrey returns for follow-up since her last visit in June. She reports feeling full and miserable after eating only a little food. She also experiences joint stiffness, though her lab coordinator did not want to change her RA medications. The patient has experienced significant recent stress, having lost her mother on November 15, almost a month ago. Her father is also dealing with multiple health issues including possible prostate cancer.Regarding her mood, she describes feeling like she is checked out, tired, and down. She continues taking her prescribed medications including valsartan, simvastatin, and Synthroid 112 micrograms. She is not taking a multivitamin with calcium. The patient declined a flu shot and completed colon cancer screening approximately 3-4 years ago.Medical History- Depression, currently treated with Wellbutrin- Hypertension, controlled with medication- Hyperlipidemia, managed with statin therapy- Hypothyroidism, treated with levothyroxine- RA, managed by lab coordinator- Last Pap smear November 27, 2020, normal result- Colonoscopy performed 3-4 years ago for colon cancer screening Lucia Matthew APRN [address] [place], [address], [facility] [employer] 12/12/2024 18:18:59 OBGyn Episode No OBEpisode recorded.
--- OUTSIDE RECORDS SUMMARY | 2024-12-19 17:01 | XMS_ITS | Data Portability ---
Author Organization [employer] - MSE Address [address] [place] [address] Assessment Encounter Date Assessment Date Assessment LastModified [...] available Not available Not available Lab TSH, ultra-se nsitive, serum 2024 025 DANILO [facility] ([place]), [address] [place], [address], 12/13/2024 04:07:34 CMP, serum or plasma 2024 025 DANILO [facility] ([place]), [address] [place], [address], 12/13/2024 04:07:33 HbA1c (hemoglo bin A1c), blood [address] [facility] ([place]), [address] [place], [address], 12/13/2024 04:07:34 TSH, ultra-se nsitive, serum [address] [facility] ([place]), [address] [place], [address], 06/20/2024 08:26:49 lipid panel, serum [address] [facility] ([place]), [address] [place], [address], 06/20/2024 08:26:47 CMP, serum or plasma 2024 025 [facility] ([place]), [address] [place], [address], 06/20/2024 08:26:47 cobalami n and folate panel, serum 2024 025 [facility] ([place]), [address] [place], [address], 06/20/2024 08:26:48 vitamin D, 25-hydro xy, total, serum 2024 025 [facility] ([place]), [address] [place], [address], 06/20/2024 08:26:48 CBC w/ auto diff [address] [facility] ([place]), [address] [place], [address], 06/20/2024 08:26:46 Referral genetic counselo r referral - first availabl e appt [address] [facility], [address] , [place], [address], 12/07/2024 11:08:31 dermatol ogist referral - first avail 2023 024 [place] [facility], [address] [facility], [place], [address], 11/21/2023 09:50:11 Procedures None recorded . Surgeries None recorded . Imaging CT, head, w/o contrast - same day as the Echo 2024 025 [facility] (Scheduling), [address], [place], [address], 07/06/2024 15:07:25 US, echocard iogram - no PA required : Call Referenc e #: [id number] Resoluti on: Complete d on 06/24/19 at 09:43 am. Call ref #[id number]. [address] -New Scheduling, [address], [place], [address], 07/13/2024 14:15:39 XR, chest, 2 view [address], [address], 06/19/2024 13:34:28 XR, ribs, unilater al, 3 or more view 2024 025 [facility], [address] [place] [address], [address], 06/19/2024 13:35:04 Medication Orders Wellbutr in XL 150 mg 24 hr tablet, extended release 2024 025 [facility] #3016, [address] [place], [address], 12/12/2024 11:23:24 levothyr oxine 112 mcg tablet 2024 025 [facility] #[facility]016, [address] [place], [address], 12/12/2024 11:23:56 simvasta tin 20 mg tablet 2024 025 [facility] [address] [place], [address], 12/12/2024 11:26:56 valsarta n 80 mg tablet 2024 025 [facility] [address] [place], [address], 12/12/2024 11:25:57 levothyr oxine 112 mcg tablet 2024 025 [address], [address] [place] [address], [address], 06/19/2024 10:37:49 simvasta tin 20 mg tablet 2024 025 [address], [address] [place] [address], [address], 06/19/2024 10:37:49 valsarta n 80 mg tablet 2024 025 [address], [address] [place], [address], 06/19/2024 10:37:49 bupropio n HCl SR 100 mg tablet,1 2 hr sustaine d-releas e 2024 025 [address], [address] [place], [address], 12/12/2024 11:10:33 simvasta tin 20 mg tablet 2023 024 [facility], [address] [place], [address], 12/15/2023 11:29:06 azithrom ycin 250 mg tablet 2023 025 [facility], [address] [place] [address], [address], 06/19/2024 11:14:14 triamcin olone acetonid e 0.1 % dental paste 2023 025 [facility], [address] [place] [address], [address], 06/19/2024 11:14:13 valsarta n 40 mg tablet 2023 025 [facility], [address] [place], [address], 06/19/2024 10:32:07 bupropio n HCl SR 100 mg tablet,1 2 hr sustaine d-releas e 2023 024 [address] [place], [address], 12/12/2024 11:10:33 valsarta n 40 mg tablet [address], [address] [place] [address], [address], 06/19/2024 10:32:00 buspiron e 10 mg tablet [address], [address] [place] [address], [address], 12/12/2024 10:56:35 valsarta n 40 mg tablet [address], [address] [place] [address], [address], 06/19/2024 10:32:00 Patient TargetsNo targets recorded. 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 L esion of skin of face first avail Referring Physician: Lucia [facility], Encounter Date: 08/13/2023 Genetic Counselor Referral f or Family history of breast cancer first available appt Referring Physician: Lucia [facility], Encounter Date: 06/19/2024 Results Created Date Observation Date Name Description Value Unit Range Abnormal Flag Note LastModifiedBy Organization Detail LastModifiedTime 06/15/19 24 06/16/2023 LIPID PANEL , STAND THEA cholesterol, total 175 mg/dL <200 normal Not Available [facility] [place] [facility] [address] [place], [address], 06/16/2023 12:39:13 06/15/19 24 06/16/2023 LIPID PANEL , STAND THEA HDL cholesterol 66 mg/dL > or = 50 normal Not Available [facility] [place] [facility] [address] [facility], [place], [address], 06/16/2023 12:39:13 06/15/19 24 06/16/2023 LIPID PANEL , STAND THEA triglyceride s 94 mg/dL <150 normal Not Available [facility] [place] [facility] [address] [facility], [place], [address], 06/16/2023 12:39:13 06/15/19 24 06/16/2023 LIPID PANEL , STAND THEA LDL-choleste rol 90 mg/dL _(lesli c) normal Refer ence range : <100 Roland able range <100 mg/dL for prima ry preve ntion ; <70 mg/dL for patie nts with CHD or diabe tic patie nts with > or = 2 CHD risk facto rs. LDL-C is now calcu lated using the Joyce n-Hop kins calcu porsche n, which is a valid ated novel janette stevens r accur acy than the Fried negrita equat ion in the estim ation of LDL-C . Joyce JUAN et al. ALFREDO. 2013; 310(1 9): 2061- 206 (http ://ed ucati on.Qu Jun rodriguez Mediklys. com/f aq/FA Q164) Not Available [facility] [address] [facility] [place], [address], 06/16/2023 12:39:13 06/15/19 24 06/16/2023 LIPID PANEL , STAND THEA chol/HDLC ratio 2.7 (calc ) <5.0 normal Not Available [facility] [address] [facility] [place], [address], 06/16/2023 12:39:13 06/15/19 24 06/16/2023 LIPID PANEL , STAND THEA non HDL cholesterol 109 mg/dL _(lesli c) <130 normal For patie nts with diabe jennie plus 1 major ASCVD risk facto r, treat ing to a non-H DL-C goal of <100 mg/dL (LDL- C of <70 mg/dL ) is consi dered a thera peuti c optio n. Not Available [facility] [address] [facility] [place], [address], 06/16/2023 12:39:13 06/15/19 24 06/16/2023 COMPR EHENS ARIA METAB OLIC PANEL glucose 99 mg/dL 65-99 normal Fasti ng refer ence inter haile Not Available [facility] [address] [facility] [place], [address], 06/16/2023 12:39:15 06/15/19 24 06/16/2023 COMPR EHENS ARIA METAB OLIC PANEL urea nitrogen (BUN) 12 mg/dL 7-25 normal Not Available [facility] [address] [facility] [place], [address], 06/16/2023 12:39:15 06/15/19 24 06/16/2023 COMPR EHENS ARIA METAB OLIC PANEL creatinine 0.66 mg/dL 0.50-1 .03 normal Not Available [facility] [address] [facility] [place], [address], 06/16/2023 12:39:15 06/15/19 24 06/16/2023 COMPR EHENS ARIA METAB OLIC PANEL eGFR 103 mL/mi n/1.7 3m2 > or = 60 normal Not Available [facility] [address] [place], [address], 06/16/2023 12:39:15 06/15/19 24 06/16/2023 COMPR EHENS ARIA METAB OLIC PANEL BUN/creatini ne ratio SEE NOTE: (calc ) 6-22 Not Repor jennifer: BUN and Creat inine are withi n refer ence range . Not Available [facility] [address] [facility] [place], [address], 06/16/2023 12:39:15 06/15/19 24 06/16/2023 COMPR EHENS ARIA METAB OLIC PANEL sodium 143 mmol/ L 135-14 6 normal Not Available [facility] [address] [facility] [place], [address], 06/16/2023 12:39:15 06/15/19 24 06/16/2023 COMPR EHENS ARIA METAB OLIC PANEL potassium 3.7 mmol/ L 3.5-5. 3 normal Not Available [facility] [address] [facility] [place], [address], 06/16/2023 12:39:15 06/15/19 24 06/16/2023 COMPR EHENS ARIA METAB OLIC PANEL chloride 110 mmol/ L 98-110 normal Not Available [facility] [address] [facility] [place], [address], 06/16/2023 12:39:15 06/15/19 24 06/16/2023 COMPR EHENS ARIA METAB OLIC PANEL carbon dioxide 24 mmol/ L 20-32 normal Not Available [facility] [address] [facility] [place], [address], 06/16/2023 12:39:15 06/15/19 24 06/16/2023 COMPR EHENS ARIA METAB OLIC PANEL calcium 9.4 mg/dL 8.6-10 .4 normal Not Available [facility] [address] [facility] [place], [address], 06/16/2023 12:39:15 06/15/19 24 06/16/2023 COMPR EHENS ARIA METAB OLIC PANEL protein, total 6.5 g/dL 6.1-8. 1 normal Not Available [facility] [address] [facility] [place], [address], 06/16/2023 12:39:15 06/15/19 24 06/16/2023 COMPR EHENS ARIA METAB OLIC PANEL albumin 4.6 g/dL 3.6-5. 1 normal Not Available [facility] [address] [facility] [place], [address], 06/16/2023 12:39:15 06/15/19 24 06/16/2023 COMPR EHENS ARIA METAB OLIC PANEL globulin 1.9 g/dL_ (calc ) 1.9-3. 7 normal Not Available [facility] [address] [facility] [place], [address], 06/16/2023 12:39:15 06/15/19 24 06/16/2023 COMPR EHENS ARIA METAB OLIC PANEL albumin/glob ulin ratio 2.4 (calc ) 1.0-2. 5 normal Not Available [facility] [address] [facility] [place], [address], 06/16/2023 12:39:15 06/15/19 24 06/16/2023 COMPR EHENS ARIA METAB OLIC PANEL bilirubin, total 0.4 mg/dL 0.2-1. 2 normal Not Available [facility] [address] [place], [address], 06/16/2023 12:39:15 06/15/19 24 06/16/2023 COMPR EHENS ARIA METAB OLIC PANEL alkaline phosphatase 79 U/L 37-153 normal Not Available [facility] [address] [place], [address], 06/16/2023 12:39:15 06/15/19 24 06/16/2023 COMPR EHENS ARIA METAB OLIC PANEL AST 25 U/L 10-35 normal Not Available [facility] [address] [place], [address], 06/16/2023 12:39:15 06/15/19 24 06/16/2023 COMPR EHENS ARIA METAB OLIC PANEL ALT 33 U/L 6-29 high Not Available [facility] [address] [place], [address], 06/16/2023 12:39:15 06/15/19 24 06/16/2023 CBC (INCL UDES DIFF/ PLT) white blood cell count 4.4 thous and/u L 3.8-10 .8 normal Not Available [facility] [address] [facility] [place], [address], 06/16/2023 06:46:45 06/15/1906/16/2023 CBC (INCL UDES DIFF/ PLT) red blood cell count 4.76 kaleb on/uL 3.80-5 .10 normal Not Available [facility] [address] [place], [address], 06/16/2023 06:46:45 06/15/19 24 06/16/2023 CBC (INCL UDES DIFF/ PLT) hemoglobin 13.9 g/dL 11.7-1 5.5 normal Not Available [facility] [address] [facility] [place], [address], 06/16/2023 06:46:45 06/15/1906/16/2023 CBC (INCL UDES DIFF/ PLT) hematocrit 41.9 % 35.0-4 5.0 normal Not Available [facility] [place] [facility] [address] [facility] [place], [address], 06/16/2023 06:46:45 06/15/1906/16/2023 CBC (INCL UDES DIFF/ PLT) MCV 88.0 fL 80.0-1 00.0 normal Not Available [facility] [place] [facility] [address] [facility] [place], [address], 06/16/2023 06:46:45 06/15/1906/16/2023 CBC (INCL UDES DIFF/ PLT) MCH 29.2 pg 27.0-3 3.0 normal Not Available [facility] [place] [facility] [address] [facility] [place], [address], 06/16/2023 06:46:45 06/15/1906/16/2023 CBC (INCL UDES DIFF/ PLT) MCHC 33.2 g/dL 32.0-3 6.0 normal Not Available [facility] [address] [facility] [place], [address], 06/16/2023 06:46:45 06/15/1906/16/2023 CBC (INCL UDES DIFF/ PLT) RDW 13.0 % 11.0-1 5.0 normal Not Available [facility] [place] [facility] [address] [facility] [place], [address], 06/16/2023 06:46:45 06/15/1906/16/2023 CBC (INCL UDES DIFF/ PLT) platelet count 237 thous and/u L 140-40 0 normal Not Available [facility] [place] [facility] [address] [facility] [place], [address], 06/16/2023 06:46:45 06/15/1906/16/2023 CBC (INCL UDES DIFF/ PLT) MPV 10.4 fL 7.5-12 .5 normal Not Available [facility] [place] [facility] [address], [place], [address], 06/16/2023 06:46:45 06/15/1906/16/2023 CBC (INCL UDES DIFF/ PLT) absolute neutrophils 2596 cells /uL 1500-7 800 normal Not Available [facility] [place] [facility] [address], [place], [address], 06/16/2023 06:46:45 06/15/19 24 06/16/2023 CBC (INCL UDES DIFF/ PLT) absolute lymphocytes 1236 cells /uL 850-39 00 normal Not Available [facility] [place] [facility] [address], [place], [address], 06/16/2023 06:46:45 06/15/19 24 06/16/2023 CBC (INCL UDES DIFF/ PLT) absolute monocytes 387 cells /uL 200-95 0 normal Not Available [facility] [place] [facility] [address], [place], [address], 06/16/2023 06:46:45 06/15/19 24 06/16/2023 CBC (INCL UDES DIFF/ PLT) absolute eosinophils 158 cells /uL 15-500 normal Not Available [facility] [address], [place], [address], 06/16/2023 06:46:45 06/15/19 24 06/16/2023 CBC (INCL UDES DIFF/ PLT) absolute basophils 22 cells /uL 0-200 normal Not Available [facility] [address], [place], [address], 06/16/2023 06:46:45 06/15/19 24 06/16/2023 CBC (INCL UDES DIFF/ PLT) neutrophils 59 % normal Not Available [facility] [address] [place], [address], 06/16/2023 06:46:45 06/15/1906/16/2023 CBC (INCL UDES DIFF/ PLT) lymphocytes 28.1 % normal Not Available [facility] [address] [place], [address], 06/16/2023 06:46:45 06/15/1906/16/2023 CBC (INCL UDES DIFF/ PLT) monocytes 8.8 % normal Not Available [facility] [address] [place], [address], 06/16/2023 06:46:45 06/15/1906/16/2023 CBC (INCL UDES DIFF/ PLT) eosinophils 3.6 % normal Not Available [facility] [address] [place], [address], 06/16/2023 06:46:45 06/15/1906/16/2023 CBC (INCL UDES DIFF/ PLT) basophils 0.5 % normal Not Available [facility] [address] [place], [address], 06/16/2023 06:46:45 06/15/1906/16/2023 TSH W/REF ANNA TO FT4 TSH w/reflex to FT4 0.66 mIU/L 0.40-4 .50 normal Not Available [facility] [address] [place], [address], 06/16/2023 11:13:54 06/20/1906/20/2024 CBC WITH DIFFE RENTI AL/PL ATELE T WBC 6.0 x10e3 /uL 3.4-10 .8 normal Not Available [facility] ([facility]) [address] [facility], [place], [address], 06/20/2024 08:26:46 06/20/1906/20/2024 CBC WITH DIFFE RENTI AL/PL ATELE T RBC 4.89 x10e6 /uL 3.77-5 .28 normal Not Available [facility] ([facility]) [address] [facility], [place], [address], 06/20/2024 08:26:46 06/20/19 25 06/20/2024 CBC WITH DIFFE RENTI AL/PL ATELE T hemoglobin 14.7 g/dL 11.1-1 5.9 normal Not Available [facility] ([facility]) [address] [facility], [place], [address], 06/20/2024 08:26:46 06/20/1906/20/2024 CBC WITH DIFFE RENTI AL/PL ATELE T hematocrit 44.1 % 34.0-4 6.6 normal Not Available [facility] ([facility]) [address] [place], [address], 06/20/2024 08:26:46 06/20/1906/20/2024 CBC WITH DIFFE RENTI AL/PL ATELE T MCV 90 fL 79-97 normal Not Available [facility] ([facility]) [address] [place], [address], 06/20/2024 08:26:46 06/20/1906/20/2024 CBC WITH DIFFE RENTI AL/PL ATELE T MCH 30.1 pg 26.6-3 3.0 normal Not Available [facility] ([facility]) [address] [place], [address], 06/20/2024 08:26:46 06/20/19 25 06/20/2024 CBC WITH DIFFE RENTI AL/PL ATELE T MCHC 33.3 g/dL 31.5-3 5.7 normal Not Available [facility] ([facility]) [address] [facility], [place], [address], 06/20/2024 08:26:46 06/20/1906/20/2024 CBC WITH DIFFE RENTI AL/PL ATELE T RDW 12.9 % 11.7-1 5.4 Not Available [facility] ([facility]) [address] [facility], [place], [address], 06/20/2024 08:26:46 06/20/19 25 06/20/2024 CBC WITH DIFFE RENTI AL/PL ATELE T platelets 294 x10e3 /uL 150-45 0 normal Not Available [facility] ([facility]) [address] [facility], [place], [address], 06/20/2024 08:26:46 06/20/19 25 06/20/2024 CBC WITH DIFFE RENTI AL/PL ATELE T neutrophils 65 % not estab. normal Not Available [facility] ([facility]) [address] [facility], [place], [address], 06/20/2024 08:26:46 06/20/19 25 06/20/2024 CBC WITH DIFFE RENTI AL/PL ATELE T lymphs 25 % not estab. normal Not Available [facility] ([facility]) [address] [facility], [place], [address], 06/20/2024 08:26:46 06/20/19 25 06/20/2024 CBC WITH DIFFE RENTI AL/PL ATELE T monocytes 7 % not estab. normal Not Available [facility] ([facility]) [address] [facility], [place], [address], 06/20/2024 08:26:46 06/20/19 25 06/20/2024 CBC WITH DIFFE RENTI AL/PL ATELE T eos 2 % not estab. normal Not Available [facility] ([facility]) [address] [facility], [place], [address], 06/20/2024 08:26:46 06/20/19 25 06/20/2024 CBC WITH DIFFE RENTI AL/PL ATELE T basos 1 % not estab. normal Not Available [facility] ([facility]) [address] [place], [address], 06/20/2024 08:26:46 06/20/19 25 06/20/2024 CBC WITH DIFFE RENTI AL/PL ATELE T immature cells INTERNET ECOMMER[employer] SPECIALIST Not Available [facility] ([facility]) [address] [place], [address], 06/20/2024 08:26:46 06/20/19 25 06/20/2024 CBC WITH DIFFE RENTI AL/PL ATELE T neutrophils (absolute) 3.9 x10e3 /uL 1.4-7. 0 normal Not Available [facility] ([facility]) [address] [place], [address], 06/20/2024 08:26:46 06/20/19 25 06/20/2024 CBC WITH DIFFE RENTI AL/PL ATELE T lymphs (absolute) 1.5 x10e3 /uL 0.7-3. 1 normal Not Available [facility] ([facility]) [address] [place], [address], 06/20/2024 08:26:46 06/20/19 25 06/20/2024 CBC WITH DIFFE RENTI AL/PL ATELE T monocytes(ab solute) 0.4 x10e3 /uL 0.1-0. 9 normal Not Available [facility] ([facility]) [address] [place], [address], 06/20/2024 08:26:46 06/20/19 25 06/20/2024 CBC WITH DIFFE RENTI AL/PL ATELE T eos (absolute) 0.1 x10e3 /uL 0.0-0. 4 normal Not Available [facility] ([facility]) [address] [place], [address], 06/20/2024 08:26:46 06/20/19 25 06/20/2024 CBC WITH DIFFE RENTI AL/PL ATELE T baso (absolute) 0.0 x10e3 /uL 0.0-0. 2 normal Not Available [facility] ([facility]) [address] [facility], [place], [address], 06/20/2024 08:26:46 06/20/19 25 06/20/2024 CBC WITH DIFFE RENTI AL/PL ATELE T immature granulocytes 0 % not estab. Not Available [facility] ([facility]) [address] [facility], [place], [address], 06/20/2024 08:26:46 06/20/19 25 06/20/2024 CBC WITH DIFFE RENTI AL/PL ATELE T immature grans (abs) 0.0 x10e3 /uL 0.0-0. 1 Not Available [facility] ([facility]) [address] [facility], [place], [address], 06/20/2024 08:26:46 06/20/19 25 06/20/2024 CBC WITH DIFFE RENTI AL/PL ATELE T NRBC INTERNET [employer] SPECIALIST Not Available [facility] ([facility]) [address] [facility], [place], [address], 06/20/2024 08:26:46 06/20/19 25 06/20/2024 CBC WITH DIFFE RENTI AL/PL ATELE T hematology comments: INTERNET [employer] SPECIALIST Not Available [facility] ([facility]) [address] [facility], [place], [address], 06/20/2024 08:26:46 06/20/19 25 06/20/2024 COMP. METAB OLIC PANEL (14) glucose 82 mg/dL 70-99 normal Not Available [facility] ([facility]) [address] [facility], [place], [address], 06/20/2024 08:26:47 06/20/19 25 06/20/2024 COMP. METAB OLIC PANEL (14) BUN 11 mg/dL 6-24 normal Not Available [facility] ([facility]) [address] [facility] [place], [address], 06/20/2024 08:26:47 06/20/19 25 06/20/2024 COMP. METAB OLIC PANEL (14) creatinine 0.84 mg/dL 0.57-1 .00 normal Not Available [facility] ([facility]) [address] [facility], [place], [address], 06/20/2024 08:26:47 06/20/19 25 06/20/2024 COMP. METAB OLIC PANEL (14) eGFR 81 mL/mi n/1.7 3 >59 normal Not Available [facility] ([facility]) [address] [facility], [place], [address], 06/20/2024 08:26:47 06/20/19 25 06/20/2024 COMP. METAB OLIC PANEL (14) BUN/creatini ne ratio 13 9-23 normal Not Available [facility] ([facility]) [address] [facility], [place], [address], 06/20/2024 08:26:47 06/20/19 25 06/20/2024 COMP. METAB OLIC PANEL (14) sodium 142 mmol/ L 134-14 4 normal Not Available [facility] ([facility]) [address] [place], [address], 06/20/2024 08:26:47 06/20/19 25 06/20/2024 COMP. METAB OLIC PANEL (14) potassium 4.2 mmol/ L 3.5-5. 2 normal Not Available [facility] ([facility]) [address] [facility], [place], [address], 06/20/2024 08:26:47 06/20/19 25 06/20/2024 COMP. METAB OLIC PANEL (14) chloride 107 mmol/ L 96-106 above high normal Not Available [facility] ([facility]) [address] [facility] [place], [address], 06/20/2024 08:26:47 06/20/19 25 06/20/2024 COMP. METAB OLIC PANEL (14) carbon dioxide, total 21 mmol/ L 20-29 normal Not Available [facility] ([facility]) [address] [facility] [place], [address], 06/20/2024 08:26:47 06/20/19 25 06/20/2024 COMP. METAB OLIC PANEL (14) calcium 9.7 mg/dL 8.7-10 .2 normal Not Available [facility] ([facility]) [address] [facility] [place], [address], 06/20/2024 08:26:47 06/20/19 25 06/20/2024 COMP. METAB OLIC PANEL (14) protein, total 7.4 g/dL 6.0-8. 5 normal Not Available [facility] ([facility]) [address] [facility] [place], [place], [address], 06/20/2024 08:26:47 06/20/19 25 06/20/2024 COMP. METAB OLIC PANEL (14) albumin 4.9 g/dL 3.8-4. 9 normal Not Available [facility] ([facility]) [address] [facility] [place], [address], 06/20/2024 08:26:47 06/20/19 25 06/20/2024 COMP. METAB OLIC PANEL (14) globulin, total 2.5 g/dL 1.5-4. 5 Not Available [facility] ([facility]) [address] [facility] [place], [address], 06/20/2024 08:26:47 06/20/19 25 06/20/2024 COMP. METAB OLIC PANEL (14) bilirubin, total 0.3 mg/dL 0.0-1. 2 normal Not Available [facility] ([facility]) [address] [facility] [place], [address], 06/20/2024 08:26:47 06/20/19 25 06/20/2024 COMP. METAB OLIC PANEL (14) alkaline phosphatase 107 IU/L 44-121 normal Not Available [facility] ([facility]) [address] [facility] [place], [address], 06/20/2024 08:26:47 06/20/19 25 06/20/2024 COMP. METAB OLIC PANEL (14) AST (SGOT) 27 IU/L 0-40 normal Not Available [facility] ([facility]) [address] [facility] [place], [address], 06/20/2024 08:26:47 06/20/19 25 06/20/2024 COMP. METAB OLIC PANEL (14) ALT (SGPT) 36 IU/L 0-32 above high normal Not Available [facility] ([facility]) [address] [facility] [place], [address], 06/20/2024 08:26:47 06/20/19 25 06/20/2024 LIPID PANEL cholesterol, total 179 mg/dL 100-19 9 normal Not Available [facility] ([facility]) [address] [facility] [place], [address], 06/20/2024 08:26:47 06/20/19 25 06/20/2024 LIPID PANEL triglyceride s 127 mg/dL 0-149 normal Not Available [facility] ([facility]) [address] [facility] [place], [address], 06/20/2024 08:26:47 06/20/19 25 06/20/2024 LIPID PANEL HDL cholesterol 54 mg/dL >39 normal Not Available [facility] ([facility]) [address] [facility] [place], [address], 06/20/2024 08:26:47 06/20/19 25 06/20/2024 LIPID PANEL VLDL cholesterol lesli 22 mg/dL 5-40 Not Available [facility] ([facility]) [address] [facility], [place], [address], 06/20/2024 08:26:47 06/20/19 25 06/20/2024 LIPID PANEL LDL chol calc ([facility]) 103 mg/dL 0-99 above high normal Not Available [facility] ([facility]) [address] [facility], [place], [address], 06/20/2024 08:26:47 06/20/1906/20/2024 LIPID PANEL LDL calc comment: INTERNET [employer] SPECIALIST Not Available [facility] ([facility]) [address] [facility], [place], [address], 06/20/2024 08:26:47 06/20/1906/20/2024 VITAM IN B12 AND FOLAT E vitamin B12 512 pg/mL 232-12 45 normal Not Available [facility] ([facility]) [address] [place], [address], 06/20/2024 08:26:48 06/20/1906/20/2024 VITAM IN B12 AND FOLAT E folate (folic acid), serum 17.1 NG/mL >3.0 normal A serum folat e nupur ntrat ion of less than 3.1 ng/mL is consi dered to repre sent clini lesli defic iency . Not Available [facility] ([facility]) [address] [facility], [place], [address], 06/20/2024 08:26:48 06/20/1906/20/2024 VITAM IN D, 25-HY DROXY vitamin D, 25-hydroxy 50.4 NG/mL 30.0-1 00.0 Vitam in D defic iency has been defin ed by the Insti tute of Medic ine and an Endoc rine Socie ty pract ice guide line as a level of serum 25-OH vitam in D less than 20 ng/mL (1,2) . The Endoc rine Socie ty went on to furth er defin e vitam in D insuf ficie ncy as a level betwe en 21 and 29 ng/mL (2). 1. IOM (Inst itute of Medic ine). 2010. Dieta ry refer ence intak es for calci um and D. Cb hernandez [place]: [facility] . 2. Elida collazo MF, Juan Antonio parks [place], Shae off-F errar i ADORNO, et al. Evalu ation , treat ment, and preve ntion of vitam in D defic iency : an Endoc rine Socie ty clini lesli pract ice guide line. JCEM. 2010; 96(7) :1911 -30. Not Available [facility] ([facility]) [address] [facility], [place], [address], 06/20/2024 08:26:48 06/20/19 25 06/20/2024 TSH RFX ON ABNOR MAL TO FREE T4 TSH 3.350 uIU/m L 0.450- 4.500 normal Not Available [facility] ([facility]) [address] [facility], [place], [address], 06/20/2024 08:26:49 09/10/19 24 09/09/2023 US, thyro id No observ ation record ed. [email or web address] [facility] [address], [place], [address], 09/10/2023 12:44:20 12/17/19 24 12/14/2023 MAMMO , scree cadence, digit al, bilat eral No observ ation record ed. ynear [facility] [address], [place], [address], 12/28/2023 14:51:29 06/20/19 25 XR, chest , 2 view No observ ation record ed. [email or web address] [address], [address], 06/19/2024 15:56:16 06/20/19 XR, ribs, unila teral , 3 or more view No observ ation record ed. [address], [place], [address], 06/19/2024 15:56:16 06/29/19 25 06/27/2024 appli catio n of cardi ac monit or* No observ ation record ed. [address] - [facility] [address], [place], [address], 06/28/2024 11:10:11 07/07/19 25 07/06/2024 CT, head, w/o contr ast No observ ation record ed. [facility] [address], [place], [address], 07/07/2024 17:44:54 07/17/19 25 07/06/2024 , echo ardio gram No observ ation record ed. [address], [place], [address], 07/24/2024 14:01:44 Result Notes None recorded. 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 201606/02/2019 Problem Code: M05.09; Problem Code Type: ICD-10; Not Available [facility] 2 20:52:58 Hypothyr oidism 82799766 Completed 201603/19/2017 Problem Code: E03.8; Problem Code Type: ICD-10; Not Available [facility] 2 20:52:57 Mixed hyperlip idemia 278391131 Completed 201606/30/2016 Problem Code: E78.2; Problem Code Type: ICD-10; Not Available [facility] 2 20:52:58 Menopaus e present 191475896 Active 2016 Problem Code: N95.1; Problem Code Type: ICD-10; Not Available [facility] 2 20:52:58 Acquired hypothyr oidism 131911600 Active 2016 Problem Code: 244.8; Problem Code Type: ICD-9; Not Available [facility] 2 20:53:01 Menopaus al symptom 00007968 Active 2016 Problem Code: 627.2; Problem Code Type: ICD-9; Not Available [facility] 2 20:53:02 Abnormal weight gain 592565588 Completed 201601/30/2017 Problem Code: R63.5; Problem Code Type: ICD-10; Not Available [facility] 2 20:52:59 Viral infectio n of central nervous system 080357486 Completed 201603/29/2017 Problem Code: A88.8; Problem Code Type: ICD-10; Not Available [facility] 2 20:52:57 Divertic ulum of Eustachi an tube 660363613 Completed 201603/29/2017 Problem Code: H69.82; Problem Code Type: ICD-10; Not Available [facility] 2 20:52:59 Epidemic vertigo 351969877 Completed 201603/29/2017 Problem Code: 078.81; Problem Code Type: ICD-9; Not Available [facility] 2 20:53:01 Dysfunct ion of eustachi an tube 11342848 Completed 201603/29/2017 Problem Code: 381.81; Problem Code Type: ICD-9; Not Available [facility] 2 20:53:02 Abnormal weight gain 321283960 Completed 201705/18/2017 Problem Code: R63.5; Problem Code Type: ICD-10; Not Available [facility] 2 20:52:59 Screenin g mammogra phy Completed 201707/31/2017 Problem Code: Z12.31; Problem Code Type: ICD-10; CAL JAZMYNEMARKO null, [employer] 2 14:06:59 Screenin g mammogra phy Completed 201708/17/2017 Problem Code: V76.12; Problem Code Type: ICD-9; CAL JAZMYNEJACQUESR null, [employer] 2 14:06:59 Screenin g mammogra phy Completed 201806/02/2019 Problem Code: Z12.31; Problem Code Type: ICD-10; CAL JAZMYNEJACQUESR null, [employer] 2 14:06:59 Hypothyr oidism 08044215 Active 2019 Not Available [facility] 2 20:52:57 Body mass index 25-29 - overweig 470077747 Completed 201912/17/2019 Problem Code: Z68.26; Problem Code Type: ICD-10; Not Available [facility] 2 20:53:03 Screenin g mammogra phy Completed 201912/17/2019 Problem Code: Z12.31; Problem Code Type: ICD-10; CAL SAMANOJACQUESR null, [employer] 2 14:06:59 General examinat ion of patient Active 2019 Not Available [facility] 2 20:52:59 Closed fracture of proximal phalanx of great toe 172261166 Completed 201905/29/2020 Problem Code: S92.415A ; Problem Code Type: ICD-10; Not Available [facility] 2 20:52:59 Body mass index 25-29 - overweig 287493305 Active 2019 Problem Code: Z68.25; Problem Code Type: ICD-10; Not Available [facility] 2 20:53:01 Marge bronson 49469735 Active 2023 Lucia Tiff, [employer] [address] [place], [address] , [employer] 4 17:20:21 Dysthymi a 51575923 Active 2024 Lucia Matthew, [employer] [address] [place], [address] , [employer] 5 10:57:04 Problem Notes None recorded. Procedures Surgical History Date Name Laterality Status Provider Name and Address Organization Details Recorded Time 12/14/19 24 Most Recent Mammogram completed CAL [facility] [employer]. 06/19/2024 10:13:01 12/08/19 21 Date of Last Pap Smear completed Gris Farfan [employer]. 04/27/2022 11:06:42 05/05/19 17 tonsillectomy and adenoidectomy completed Not Available [facility] 10/28/2021 22:56:06 Imaging Results None recorded. Procedure Notes None recorded. Medical Equipment None Reported. Allergies Allergen ID Allergen Name Allergen Category Reaction Reaction Severity Criticality Documentation Date Start Date Code Code System Note Provider Name and Address Organization Details Recorded Time 89101 Product containin g penicilli n (product) medicatio n Not available Not available Not available 10/28/2021 86362 8001 SNOMED Gris Espinozatony [facility], [employer] 3 11:04:40 11359 codeine sulfate medicatio n Not available Not available Not available 10/28/2021 64668 RxNorm Not Available [facility] 22:57:20 Medications Name Sig Start Date Stop [...] blood by Pulse oximetry Systolic And Diastolic Systolic And Diastolic Systolic And Diastolic Provider Name and Address Organization Details Last Updated DateTime 5 165.1 cm 26.5 kg/m2 82272.1 9 g 98 [degF] 74 /min 98 % 98 % 144/83 mm[Hg] 143/75 mm[Hg] 143/73 mm[Hg] CAL MYNEAR [employer] 5 10:12:20 Date Recorded Body height Body mass index (BMI) Body weight Body temperature Heart rate Oxygen saturation Oxygen saturation in Arterial blood by Pulse oximetry Systolic And Diastolic Systolic And Diastolic Provider Name and Address Organization Details Last Updated DateTime 4 165.1 cm 26.1 kg/m2 36299.5 7 g 98 [degF] 75 /min 96 % 96 % 145/75 mm[Hg] 139/68 mm[Hg] CAL RPI ([employer]R [employer] 4 17:16:06 Date Recorded Body height Body mass index (BMI) Body weight Body temperature Heart rate Oxygen saturation Oxygen saturation in Arterial blood by Pulse oximetry Systolic And Diastolic Provider Name and Address Organization Details Last Updated DateTime 4 165.1 cm 26.2 kg/m2 45273.7 2 g 97.7 [degF] 75 /min 96 % 96 % 97/58 mm[Hg] CAL RPI ([employer] 4 16:50:59 Date Recorded Body height Body mass index (BMI) Body weight Body temperature Heart rate Oxygen saturation Oxygen saturation in Arterial blood by Pulse oximetry Systolic And Diastolic Provider Name and Address Organization Details Last Updated DateTime 5 165.1 cm 27.6 kg/m2 48222.9 g 97.8 [degF] 79 /min 95 % 95 % 115/70 mm[Hg] CAL RPI ([employer]R [employer] 5 10:51:57 Date Recorded Body height Body mass index (BMI) Body weight Body temperature Heart rate Oxygen saturation Oxygen saturation in Arterial blood by Pulse oximetry Systolic And Diastolic Provider Name and Address Organization Details Last Updated DateTime 4 165.1 cm 26.5 kg/m2 83200.6 2 g 98.2 [degF] 75 /min 96 % 96 % 111/71 mm[Hg] CAL RPI ([employer] 11:06:26 Social History Question Answer Notes LastModified by Organizat ion Details LastModified Time Tobacco Smoking Status Former Smoker Gris Adolph krause, [employer] 04/27/2022 11:05:13 Do You Have An Advance [...] Do You Have A Medical Power Of Vp [employer]? No Information not available 12/16/2021 What Was [...] mcg/0.3 mL dose 1 completed Gris krause [place] [employer] 04/27/2022 11:04:48 COVID-19, mRNA, LNP-S, PF, 30 mcg/0.3 mL dose 1 completed Gris krause [employer] 04/27/2022 11:04:48 zoster recombinant 3 completed Not Available [facility] 12/12/2024 10:47:07 zoster recombinant 4 completed Not Available [facility] 12/12/2024 10:47:07 Past Encounters Encounter ID Performer Location Encounter Start Date Encounter Closed Date Diagnosis/Indication Diagnosis SNOMED-CT Code Diagnosis ICD10 Code Diagnosis IMO Codes Diagnosis Note [id number] [place] [address] 12/16/2021 13:45:37 12/16/2021 14:35:32 Menopause present 043561693 N95.1 Mixed hyperlipidemia 267 847761 E78.2 Elevated blood-pressure reading without diagnosis of hypertension 765867918 R03.0 Advised to check her blood pressure at home, and keep a log. I have advised her if her blood pressure continues to trend at 140/90 or greater she should return to the office to discuss hypertensi on treatment. DASH diet, aerobic exercise, and weight loss will also help. Acquired hypothyroidism 464446615 E03.9 [id number] Lucia Matthew[address] [address] 03/28/2022 12:20:19 03/28/2022 12:51:50 Aphthous ulcer of mouth 807525419 K12.0 Use of triamcinol one dental paste, and likely viral etiology explained. [id number] Lucia Garveyer[address] [address] 06/12/2022 11:21:32 06/12/2022 12:08:19 Acquired hypothyroidism 912828312 E03.9 Continue current meds. Labs today. Mixed hyperlipidemia 267 324987 E78.2 Low fat low carb diet and exercise emphasized . General ex amination of patient 659520202 Z00.00 Body mass index 25-29 - overweight 784024012 Z68.27 [id number] [place] [address] 12/14/2022 10:42:17 12/14/2022 11:20:52 Acquired hypothyroidism 308588586 E03.9 Continue current meds. Labs today. Mixed hyperlipidemia 267 038931 E78.2 Low fat low carb diet and exercise emphasized . Menopause present 487584 006 N95.1 [id number] Lucia Matthew[address] [address] 06/15/2023 09:02:36 06/15/2023 10:49:27 Adult health examination 730797358 Z00.00 Start Womens MVI daily with calcium and Vit D. Acquired hypothyroidism 884455272 E03.9 Continue current meds. Labs today. Mixed hyperlipidemia 267 126644 E78.2 Low fat low carb diet and exercise emphasized . Atrophic vaginitis 04950 000 N95.2 Trial premarin cream 2 nights per week. Menopause present 447375 006 N95.1 Elevated blood-pressure reading without diagnosis of hypertension 090267599 R03.0 Advised to check her blood pressure at home, and keep a log. I have advised her if her blood pressure continues to trend at 140/90 or greater she should return to the office to discuss hypertensi on treatment. DASH diet, aerobic exercise, and weight loss will also help. Body mass index 25-29 - overweight 175344144 Z68.27 [id number] Lucia Matthew[address] [address] 07/14/2023 17:04:52 07/14/2023 17:35:21 Essential hypertension 24554247 I10 Start valsartan daily, continue BP diary daily and recheck in one month. Generalize d anxiety disorder 73888731 F41.1 Stress reduction encouraged and add Buspar for prn use. [id number] Lucia Matthew [place] [address] 08/13/2023 16:38:42 08/13/2023 17:12:00 Essential hypertension 04109879 I10 Continue valsartan daily and BP diary. Lesion of skin of face 9206912827 06 L98.9 Right nasal bridge and forearms [id number] Lucia Matthew [place] [address] 12/15/2023 10:43:36 12/15/2023 11:33:02 Essential hypertension 12494323 I10 Continue valsartan daily and BP diary. Xerostomia 91961188 R68. 2 Lower resp iratory tract infection 31131985 J22 Menopause present 455093 006 N95.1 Mixed hyperlipidemia 267 152796 E78.2 Low fat low carb diet and exercise emphasized . Influenza vaccination declined 195192220 Z28.21 Body mass index 25-29 - overweight 168444704 Z68.27 [id number] Lucia Matthew [place] [address] 0 06/19/2024 09:56:54 06/19/2024 11:21:03 Acquired hypothyroidism 366357544 E03.9 Continue current meds. Labs today. Mixed hyperlipidemia 267 561019 E78.2 Low fat low carb diet and exercise emphasized . Continue statin. Essential hypertension 51606924 I10 Increase valsartan to 80 mg. DASH diet, exercise, and healthy weight encouraged . 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 She was advised that if she has another episode to return to ER. Menopause present 605422 006 N95.1 Contusion of left rib 42 07051043 7103 S20.20XD Family his tory of breast cancer 540571858 Z80.3 Family hx of breast cancer in [place], mother, and two nieces. Triple Negative. Mammo was NEG in 11/2023. Body mass index 25-29 - overweight 473907328 Z68.27 [id number] Lucia Matthew APRN [address] [address] 12/12/2024 10:45:49 12/12/2024 11:36:20 Preventive procedure 890846856 Z00.00 14023823 Start Womens MVI daily with calcium and Vit D. Essential hypertension 30393661 I10 No med changes today, continue valsartan. DASH diet, exercise, and healthy weight encouraged . Acquired hypothyroidism 512918999 E03.9 Continue current meds. Labs today. Mixed hyperlipidemia 267 437713 E78.2 Low fat low carb diet and exercise emphasized . Continue statin. Dysthymia 86798396 F34.1 91799 Change wellbutrin to X< 150 mg daily tablet. Diabetes m ellitus screening 758078825 Z13.1 22893 Overweight in adulthood with body mass index of 25 or more but less than 30 375363943 Z68.27 98274797 Health Concerns Section Related Observation LastModified by Organization Detai ls LastModified Time None Recorded Concern Status LastModified by Organization Details LastModified Time None Recorded Advance Directives Directive N: Payers Insurance Date Sequence Insurance Name Policy Number Policy Barry Covered Member ID Barry Member ID Guarantor Name 12/09/2024 1 [place] [id number] Dangelo Humphrey [id number] Savana Humphrey 12/24/2021 1 [place] [id number] Dangelo Humphrey [id number] Savana Humphrey Notes Date Note Type Note Provider Name and Address Organization Details Recorded Time 4 text/htm l Hypertension F/UReported by PatientHPIFor associated symptoms, patient reportsheadachebut reportsno dizziness,no lightheadedness,no chest pain,no shortness of breath,no palpitations,no edema, andno calf pain with exertion. For lifestyle, patient reportsregular exerciseandlimits sodium intake.ROS as noted in the HPI She has been checking her BP at home and it has remained elevated 140-180 systolic. She does have significant stress and anxiety now due to caring for her elderly mother who has dementia. Lucia Matthew APRN [address] [facility], [place], [address], [facility], [employer]. 07/16/2023 12:23:15 4 text/htm l Skin LesionReported by PatientHPIFor associated symptoms, patient reportsscabs fell off and recurbut reportsno fever,no cold symptoms,no nausea,no vomiting,no diarrhea,no urinary symptoms,no bruising,no draining,no lesions multiplying, andno lesions spreading. For location, patient reportsfaceandarms. For quality, patient reportsitchy. For severity, patient reportsmild. For duration, patient reportsstarted __ year(s) ago. For onset/timing, patient reportsgradual,becoming more symptomatic,won't heal, andidentified by self. For context, patient reportssunburn.crusted non healing lesion on right nasal bridge and bilateral forearms and hands Hypertension F/UReported by PatientHPIFor medications, patient reportstaking medications as directed,no side effects from medication, andchecks blood pressure at home, range: (118/60). For lifestyle, patient reportsregular exerciseandlimits sodium intake. For associated symptoms, patient reportsno dizziness,no lightheadedness,no chest pain,no shortness of breath,no palpitations,no edema,no calf pain with exertion, andno headache.ROS as noted in the HPI Lucia Matthew, [place] [address] [facility], [place], [address], [employer], [employer]. 08/13/2023 17:50:36 4 text/htm l HyperlipidemiaReported by PatientHPIFor duration, patient reportschronic. For risk factors, patient reportsfamily history of premature arteriosclerotic cardiovascular diseaseandhypertension. For control, patient reportsimproving. For adherence to treatment plan, patient reportsfollows recommended diet,exercises, andtakes medications as prescribed. For complications, patient reportsno coronary artery disease,no peripheral artery disease, andno cardiovascular disease. Hypertension F/UReported by PatientHPIFor medications, patient reportstaking medications as directed,no side effects from medication, andchecks blood pressure at home, range: (118/60). For lifestyle, patient reportsregular exerciseandlimits sodium intake. For associated symptoms, patient reportsno dizziness,no lightheadedness,no chest pain,no shortness of breath,no palpitations,no edema,no calf pain with exertion, andno headache. CoughReported by PatientHPIFor severity, patient reportsworseningbut reportsmild. For associated symptoms, patient reportssputum production,chest wall tenderness,throat clearing,nasal discharge, andtirednessbut reportsno fever,no chills,no chest pain,no heartburn,no nausea,no vomiting,no edema,no agitation, andno wheezing. For quality, patient reportsproductive. For duration, patient reportsacute (<3 weeks). For onset/timing, patient reportsgradualandbecomes worse as the day goes on. For context, patient reportsnon-smoker.ROS as noted in the HPI C/o dry mouth with oral mucosal apthous ulcers. Lucia Matthew, EVERETT [address] [place] [address], [phone], [facility] [employer], [employer] 12/19/2023 17:28:41 5 text/htm l Emergency Department Follow-Up RecordReported by PatientEmergency Room Follow-Up RecordFor discharge information, patient reportsname of ed __ ([facility])andemergency department discharge date: (please enter in format 'mm/dd/yyyy') (06/10/2024).Patient was at a concert and had a witnessed episode of syncope with LOC for 3-5 minutes. She was standing off to the side of a line her was standing in and became dizzy. A bystander saw her have LOC and fall face first onto the concrete floor causing oral, lip, and chin lacerations. She was taken to ER and had NML EKG, labs, cardiac enzymes, and facial bone CT. She had lacerations sutured. They are healing well. She has dental appt this afternoon due to loose lower front teeth from the fall with head and facial injury. She remains dizzy, weak, and fatigued. She denies ADORNO. She has had tenderness in left anterior ribs since the fall. She denies using ETOH, was not dehydrated at time of fall. Her mother has CVD. HyperlipidemiaReported by PatientHPIFor duration, patient reportschronic. For risk factors, patient reportsfamily history of premature arteriosclerotic cardiovascular diseaseandhypertension. For control, patient reportsimproving. For adherence to treatment plan, patient reportsfollows recommended diet,exercises, andtakes medications as prescribed. For complications, patient reportsno coronary artery disease,no peripheral artery disease, andno cardiovascular disease. HypothyroidReported by PatientHPIFor associated symptoms, patient reportsweakness,lightheadedn ess, andfatigue. For reason for visit, patient reportstsh check/labs. For duration, patient reports>12 months. For treatment, patient reportstaking medication as prescribed. Hypertension F/UReported by PatientHPIFor associated symptoms, patient reportsdizziness,lightheaded ness, andsensory disturbancesbut reportsno chest pain,no shortness of breath,no palpitations,no edema,no calf pain with exertion, andno headache. For medications, patient reportstaking medications as directed,no side effects from medication, andchecks blood pressure at home, range: (118/60). For lifestyle, patient reportsregular exerciseandlimits sodium intake.ROS as noted in the HPI Has hx vit d deficiency.[facility] is asking to discuss genetic testing today for breast cancer due to family history of breast cancer in her MGM, mother, and two nieces who now have triple NEG breast cancer. Patient's last mammo was [facility] and was completed in 11/2023. Lucia Matthew, [address] [place], [address], [facility] [employer] 06/19/2024 15:33:01 5 text/htm l Annual WellnessReported by PatientSocial/Behavioral HistoryFor diet and nutrition, patient reportsdiet is [...] She also experiences joint stiffness, though her horologist did not want to change her RA [...] Hypothyroidism, treated with levothyroxine- RA, managed by horologist- Last Pap smear November 27, 2020, normal result- Colonoscopy performed 3-4 years ago for colon cancer screening Lucia Matthew APRN [address] [facility], [place], [address], [facility] [place] [employer] 12/12/2024 18:18:59 OBGyn Episode No OBEpisode recorded.
--- OUTSIDE RECORDS SUMMARY | 2024-12-19 17:01 | XMS_ITS | Data Portability ---
Author Organization [facility] CKS BAYARD CLOSED Address [address] [place] [address] Care Team Providers Care Hood Fitter Name Role Phone MANJULA ELAM Referring Provider [phone] TROY WEST Molded Goods Spot Picker ERNESTINE MALHOTRA Primary Care Provider MANJULA ELAM Glass Selector ERNESTINE MALHOTRA Referring Provider Assessment No assessment [...] [facility], [address] [place] [address], [address], 11/07/2024 10:55:57 ESR (erythroc yte sedimenta tion rate), blood 2024 025 [facility], [address] [place] [address], [address], 11/07/2024 11:32:43 CMP, serum or plasma 2024 025 [facility], [address] [place] [address], [address], 11/07/2024 11:35:26 surgical pathology study 2023 024 [facility], [address] [place] [address], [address], 01/19/2024 10:46:27 Referral None recorded. Procedures None recorded. Surgeries None recorded. Imaging None recorded. Medication Orders diclofena c potassium 50 mg tablet 2024 025 [id number], [address] [place], [address], 11/07/2024 09:33:00 hydroxych loroquine 200 mg tablet 2024 025 [id number] [address] [place], [address], 11/07/2024 09:32:59 hydroxych loroquine 200 mg tablet 2023 024 [id number] [address] [place], [address], 10/19/2023 15:40:05 Patient TargetsNo targets recorded. Patient InstructionsNo instructions recorded. Reason for Referral None Reported. Results Created Date Observation Date Name Description Value Unit Range Abnormal Flag Note LastModifiedBy Organization Detail LastModifiedTime 01/17/2001/17/2024 SURGI LESLI surgical SEE BELOW [place] topat holog y Repor t NAME: LEONID HUMPHREY PATH: [id number] [id number] PROCE DURE DATE: 01/16 SIGNO UT DATE: 01/18 Copy to: Diagn osis: A: Left Media l Calf - POROK ERATO SIS B: Right Achil les - POROK ERATO SIS SOURC E OF SPECI MEN: 1) SKIN, L MEDIA L CALF 2) SKIN, R ACHIL LES CLINI LESLI INFOR MATIO N: A: R/O: POROK ERATO [...] Out Date: 01/18 10:46 1 Not Available [facility] [address] [place] [address], [address], 01/19/2024 10:46:27 11/08/19 25 11/07/2024 COMPL ETE BLOOD COUNT white blood cells 4.6 10*3/ uL 3.8-10 .8 normal Not Available [facility] [address] [place] [address], [address], 11/07/2024 10:55:57 11/08/19 25 11/07/2024 COMPL ETE BLOOD COUNT red blood cells 5.02 10*6/ uL 3.80-5 .20 normal Not Available [facility] [address] [place] [address], [address], 11/07/2024 10:55:57 11/08/19 25 11/07/2024 COMPL ETE BLOOD COUNT hemoglobin 15.1 g/dL 12.0-1 6.0 normal Not Available [facility] [address] [place] [address], [address], 11/07/2024 10:55:57 11/08/19 25 11/07/2024 COMPL ETE BLOOD COUNT hematocrit 44.5 % 35.0-4 7.0 normal Not Available [facility] [address] [place] [address], [address], 11/07/2024 10:55:57 11/08/19 25 11/07/2024 COMPL ETE BLOOD COUNT MCV 89 fL 80-100 normal Not Available [facility] [address] [place] [address], [address], 11/07/2024 10:55:57 11/08/19 25 11/07/2024 COMPL ETE BLOOD COUNT MCH 30 pg 26-35 normal Not Available [facility] [address] [place] [address], [address], 11/07/2024 10:55:57 11/08/19 25 11/07/2024 COMPL ETE BLOOD COUNT MCHC 34 g/dL 32-36 normal Not Available [facility] [address] [place] [address], [address], 11/07/2024 10:55:57 11/08/19 25 11/07/2024 COMPL ETE BLOOD COUNT RDW 13.3 % 11.0-1 5.0 normal Not Available [facility] [address] [place] [address], [address], 11/07/2024 10:55:57 11/08/19 25 11/07/2024 COMPL ETE BLOOD COUNT MPV 8.1 fL 6.2-10 .5 normal Not Available [facility] [address] [place] [address], [address], 11/07/2024 10:55:57 11/08/19 25 11/07/2024 COMPL ETE BLOOD COUNT platelet count 234 10*3/ uL 150-40 0 normal Not Available [facility] [address] [place] [address], [address], 11/07/2024 10:55:57 11/08/1911/07/2024 COMPL ETE BLOOD COUNT neutrophil,a bsolute 2.8 10*3/ uL 1.6-8. 4 normal Not Available [facility] [address] [place] [address], [address], 11/07/2024 10:55:57 11/08/1911/07/2024 COMPL ETE BLOOD COUNT lymphocyte,a bsolute 1.2 10*3/ uL 0.4-5. 1 normal Not Available [facility] [address] [place] [address], [address], 11/07/2024 10:55:57 11/08/19 25 11/07/2024 COMPL ETE BLOOD COUNT monocyte,abs olute 0.4 10*3/ uL 0.0-1. 2 normal Not Available [facility] [address] [place] [address], [address], 11/07/2024 10:55:57 11/08/1911/07/2024 COMPL ETE BLOOD COUNT eosinophil,a bsolute 0.1 10*3/ uL 0.0-0. 8 normal Not Available [facility] [address] [place] [address], [address], 11/07/2024 10:55:57 11/08/1911/07/2024 COMPL ETE BLOOD COUNT basophil,abs olute 0.0 10*3/ uL 0.0-0. 3 normal Not Available [facility] [address] [place] [address], [address], 11/07/2024 10:55:57 11/08/1911/07/2024 COMPL ETE BLOOD COUNT % neutrophils 60.3 % 42.0-7 8.0 normal Not Available [facility] [address] [place] [address], [address], 11/07/2024 10:55:57 11/08/19 25 11/07/2024 COMPL ETE BLOOD COUNT % lymphocytes 27.0 % 11.0-4 7.0 normal Not Available [facility] [address] [place] [address], [address], 11/07/2024 10:55:57 11/08/19 25 11/07/2024 COMPL ETE BLOOD COUNT % monocytes 9.7 % 0.0-11 .0 normal Not Available [facility] [address] [place] [address], [address], 11/07/2024 10:55:57 11/08/19 25 11/07/2024 COMPL ETE BLOOD COUNT % eosinophils 2.5 % 0.0-7. 0 normal Not Available [facility] [address] [place] [address], [address], 11/07/2024 10:55:57 11/08/19 25 11/07/2024 COMPL ETE BLOOD COUNT % basophils 0.5 % 0.0-3. 0 normal Not Available [facility] [address] [place] [address], [address], 11/07/2024 10:55:57 11/08/19 25 11/07/2024 COMPL ETE BLOOD COUNT nucleated red cells 0.1 % 0.0-0. 9 normal Not Available [facility] [address] [place] [address], [address], 11/07/2024 10:55:57 11/08/19 25 11/07/2024 COMPL ETE BLOOD COUNT nucleated RBCs, absolute 0.00 10*3/ uL not estab. normal Not Available [facility] [address] [place] [address], [address], 11/07/2024 10:55:57 11/08/1911/07/2024 ESR, AUTOM ATED ESR, automated 9 mm 0-29 normal Not Available [facility] [address] [place] [address], [address], 11/07/2024 11:32:43 11/08/19 25 11/07/2024 COMP. METAB OLIC PANEL glucose 93 mg/dL 74-100 normal Not Available [facility] [address] [place] [address], [address], 11/07/2024 11:35:26 11/08/19 25 11/07/2024 COMP. METAB OLIC PANEL blood urea nitrogen 14 mg/dL 6-20 normal Not Available [facility] [address] [place] [address], [address], 11/07/2024 11:35:26 11/08/19 25 11/07/2024 COMP. METAB OLIC PANEL creatinine 0.76 mg/dL 0.50-0 .95 normal Not Available [facility] [address] [place] [address], [address], 11/07/2024 11:35:26 11/08/19 25 11/07/2024 COMP. METAB OLIC PANEL BUN/creatini ne ratio 18 (calc ) 10-20 normal Not Available [facility] [address] [place] [address], [address], 11/07/2024 11:35:26 11/08/19 25 11/07/2024 COMP. METAB OLIC PANEL sodium 143 mmol/ L 136-14 5 normal Not Available [facility] [address] [place] [address], [address], 11/07/2024 11:35:26 11/08/19 25 11/07/2024 COMP. METAB OLIC PANEL potassium 4.3 mmol/ L 3.4-5. 0 normal Not Available [facility] [address] [place] [address], [address], 11/07/2024 11:35:26 11/08/19 25 11/07/2024 COMP. METAB OLIC PANEL chloride 106 mmol/ L 98-107 normal Not Available [facility] [address] [place] [address], [address], 11/07/2024 11:35:26 11/08/19 25 11/07/2024 COMP. METAB OLIC PANEL carbon dioxide 23 mmol/ L 22-31 normal Not Available [facility] [address] [place] [address], [address], 11/07/2024 11:35:26 11/08/19 25 11/07/2024 COMP. METAB OLIC PANEL anion gap 14 (calc ) 7-25 normal Not Available [facility] [address] [place] [address], [address], 11/07/2024 11:35:26 11/08/19 25 11/07/2024 COMP. METAB OLIC PANEL calcium 10.3 mg/dL 8.6-10 .2 high Not Available [facility] [address] [place] [address], [address], 11/07/2024 11:35:26 11/08/19 25 11/07/2024 COMP. METAB OLIC PANEL total protein 7.7 g/dL 6.4-8. 3 normal Not Available [facility] [address] [place] [address], [address], 11/07/2024 11:35:26 11/08/19 25 11/07/2024 COMP. METAB OLIC PANEL albumin 4.6 g/dL 3.5-5. 2 normal Not Available [facility] [address] [place] [address], [address], 11/07/2024 11:35:26 11/08/19 25 11/07/2024 COMP. METAB OLIC PANEL globulin 3.1 1.5-4. 5 normal Not Available [facility] [address] [place] [address], [address], 11/07/2024 11:35:26 11/08/19 25 11/07/2024 COMP. METAB OLIC PANEL albumin/glob ulin ratio 1.5 (calc ) 1.1-2. 5 normal Not Available [facility] [address] [place] [address], [address], 11/07/2024 11:35:26 11/08/19 25 11/07/2024 COMP. METAB OLIC PANEL bilirubin, total 0.3 mg/dL 0.1-1. 0 normal NOTE: New refer ence range . Not Available [facility] [address] [place] [address], [address], 11/07/2024 11:35:26 11/08/19 25 11/07/2024 COMP. METAB OLIC PANEL alkaline phosphatase 89 U/L 30-121 normal Not Available [facility] [address] [place] [address], [address], 11/07/2024 11:35:26 11/08/19 25 11/07/2024 COMP. METAB OLIC PANEL AST 27 U/L 0-32 normal Not Available [facility] [address] [place] [address], [address], 11/07/2024 11:35:26 11/08/19 25 11/07/2024 COMP. METAB OLIC PANEL ALT 27 U/L 0-33 normal Not Available [facility] [address] [place] [address], [address], 11/07/2024 11:35:26 11/08/19 25 11/07/2024 COMP. METAB OLIC PANEL eGFR 91 >= 60 normal NOT E New calcu latio n for GFR (CKD- EPI 2020) is formu lated witho ut race adjus tment facto rs at the recom menda tion of the [place] y [place] f[place] and [employer] of Nephr ology . This calcu latio n has not been valid ated in pregn ant women . For pedia tric patie nts refer to https ://goldie mast.dorothy esparza.o rg/pr ofess ional s/KDO QI/gf r_cal culat orPed Not Available [facility] [address] [place] [address], [address], 11/07/2024 11:35:26 11/04/1911/03/2024 optic al coher ence tomog alondra, retin a No observ ation record ed. [email or web address] Not Available 2024 12:18:50 11/04/19 25 11/03/2024 visua l field test No observ ation record ed. BARCODE Not Available 2024 14:03:31 Result Notes None recorded. Problems Name Problem SNOMED Code Status Onset Date Resolution Date Notes Provider Name and Address Organization Details Recorded Time [facility]0514835 [facility] Rheumatoid [facility] 98407621 [facility] Problem Notes Documentation Provider Name and Address Organization Details Recorded Time Rheumatology Note : [place] [id number] ROBLES (Legal name: Bonnie Humphrey) (id #[id number], : 1965) [address] [address] Encounter Summary - Progress Note Date Printed: 10/19/2023 Documents sent via fax will include the [...] received this fax in error, please visit [email or web address] to notify the sender and confirm that the information will be destroyed. If you do not have internet access, please call to notify the sender and confirm that the information will be destroyed. Thank you for your attention and cooperation. [ID:[id number]] Patient Bonnie Humphrey (58yo, F) #[id number] 1965 Patient Demographics: Address [address] [address] Work Phone Encounter Notes: Encounter Reason/Date 6 month recheck 10/19/2023 - 04:00PM - RHEUMATOLOGY SB History of Present Cofdazd93-tdwz-tit with degenerative arthritis and seronegative inflammatory arthritis. [...] HPI Vitals Ht: 5 ft 5 in Xkazwk2010/19/2023 03:32 pm Wt: 156 lbs 4 oz With ypbqwdb0510/19/2023 03:32 pm BMI: 2608 03:32 pm BP: 110/78 sitting R arm10/19/2023 03:34 pm BP Cuff Size: adult10/19/2023 03:33 pm Pulse: 64 bpm qoamzzd8610/19/2023 03:33 pm RR: 1608 03:33 pm O2Sat: [...] directed Qty: (135) tablet Refills: 3 Pharmacy: [facility][id number] Note to Pharmacy: 400mg alternate with 200 mg qod. 4. Long-term drug therapy- obtain labs to follow all the current medications. Needs eye examination to follow up on hydroxychloroquine, she will schedule the eye examination on her birthday month.Z79.899: Other director of front office (current) drug therapy 5. Bilateral carpal tunnel syndrome-Clinical evidence of carpal tunnel syndrome. Suggested use of cock-up wrist braces at night for 6 weeks. Reassess if it still symptomatic obtain nerve conduction studies.G56.03: Carpal tunnel syndrome, bilateral upper limbs Return to Office BRUCE FIGUEROA PA-C for NEW PATIENT DAK at [facility] on 11/18/2023 at 09:30 AM TROY WEST MD for LEVEL 2 at [facility] on 03/03/2024 at 01:15 PM OPHTH_VISUAL_FIELDS for VISUAL FIELD at [facility] on 03/03/2024 at 01:00 PM MANJULA ELAM MD for RHEUM RECHECK at RHEUMATOLOGY on 10/19/2024 at 04:00 PM Patient Medical History: Allergies List Reviewed Allergies CODEINE Medications Reviewed Medications NameDate Source buPROPion HCL SR 100 mg tablet,12 hr sustained-releaseTAKE 1 TABLET BY MOUTH EVERY DAY09/10/23 filled surescripts busPIRone 10 mg ecarjg66/22/24 filled surescripts diclofenac potassium 50 mg tabletTAKE 1 TABLET BY MOUTH THREE TIMES A DAY WITH FOOD YCMJCM39/17/24 filled surescripts estradioL 0.01% (0.1 mg/gram) vaginal cream08/09/23 filled surescripts hydroxychloroquine 200 mg tablettake as trtzvlve32/27/24 prescribed MANJULA ELAM MD levothyroxine 112 mcg tabletTAKE 1 TABLET BY MOUTH DAILY08/07/23 filled surescripts simvastatin 20 mg tabletTAKE 1 TABLET BY MOUTH EVERY DAY09/10/23 filled surescripts valsartan 40 mg /22/24 filled surescripts Family HistoryReviewed Family History Mother - Cataract - Age related macular degeneration - dry Past Medical HistoryReviewed Past Medical History Arthritis:Y Vaccine HistoryReviewed Vaccines Vaccine Type Date Amt. Route Site [facility] Lot # Mfr. Exp. 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 COVID-19, mRNA, LNP-S, PF, 30 mcg/0.3 mL dose (BioTrove) 06/21/20 0.3 mL [id number] Other water gas operator COVID-19, mRNA, LNP-S, PF, 30 mcg/0.3 mL dose (BioTrove) 05/31/20 0.3 mL [id number] Other water gas operator Electronically Signed by: MANJULA ELAM MD MANJULA ELAM MD [facility] [place], [address], [facility] 10/25/2023 15:30:03 Engagement Engineer Consult Note : [facility] [address] [facility] [address]VBITX, Polly (Legal name: Bonnie Humphrey) (id #[id number], : 1965) [facility] [address] [place] [address] Date: 4RE: Bonnie Humphrey, : 1965, PT ID #[id number] Elam MD, I would like to thank you for referring Bonnie Humphrey to our practice for consultation and evaluation. I have enclosed a copy of the office evaluation for your records. Sincerely, Electronically Signed by: BRUCE FIGUEROA PA-C, Guillermina Reason/Date skin lesion 11/18/2023 - 09:30AM - [facility] History of Present IllnessI have spots of concernLocation: face, arms. legsReports: dry, rough spots. Spot on nose keeps flaking off and coming back No history of skin cancerNew patientReview of SystemsROS as noted in the HPIPhysical Exam1. Erythematous scaly macules - nose x1, right forearm x2 , right thigh x1, left hand x1, left forearm x3, left foot x1, left martinez u0Sqxbzgqye DocumentationDAK - Cryo AK:Destruction Premalignant Lesions: Patient verbally agreed to have lesions treated and understands the risk of scarring and dyspigmentation with the procedure. 11 actinic keratoses were treated today with liquid nitrogen. Patient tolerated the procedure well.Assessment/Plan1. Actinic keratosis-Precancerous lesion(s).Will LN2 today.Can leave a white discoloration in the areas when LN2 is performed.Discussed biopsying lesions if they do not resolve after ON7Gbgrhe-my if lesion(s) persists or do not resolve. Follow up in 2 months for a recheck.L57.0: Actinic keratosis Return to Office BRUCE FIGUEROA PA-C for PROVIDER APPROVED DAK at [facility] on 01/17/2024 at 03:20 PM TROY WEST MD for LEVEL 2 at [facility] on 03/03/2024 at 01:15 PM OPHTH_VISUAL_FIELDS for VISUAL FIELD at [facility] on 03/03/2024 at 01:00 PM MANJULA ELAM MD for RHEUM RECHECK at RHEUMATOLOGY on 10/19/2024 at 04:00 PM MANJULA ELAM MD [address] [place] [address], [address] 11/23/2023 11:56:42 Engagement Engineer Consult Note : [facility] [address] [facility] [address]LYVLG, Polly (Legal name: Bonnie Humphrey) (id #[id number], : 1965) [facility] [address] [place] [address] Date: 4RE: Bonnie Humphrey, : 1965, PT ID #[id number] Elam MD, I would like to thank you for referring Bonnie Humphrey to our practice for consultation and evaluation. I have enclosed a copy of the office evaluation for your records. Sincerely, Electronically Signed by: BRUCE FIGUEROA PA-C, PASUPEncounter Reason/Date actinic keratosis 01/17/2024 - 03:20PM - [facility] History of Present IllnessI am following up with AK'sLocation: face, arms, legsTx: FM5Wuxypyl: Spot on L foot and bilateral lower legs need refrozen, Spots on arms and face have no returned.Review of SystemsROS as noted in the HPIPhysical Exam1. 7mm pink papule - left medial xhij5hl pink papule - right olyhpyor71-32+ pink scaly macules - arms, legs, feetProcedure [...] uncertain behavior of skin SURGICAL PATHOLOGY - Specimen source: SKIN Specimen 1: Left Medial Calf R/O: Porokeratosis vs AK vs SK Specimen 2: Right Achilles R/O: Porokeratosis vs AK vs SK Return to Office TROY WEST MD for LEVEL 2 at [facility] on 03/03/2024 at 01:15 PM OPHTH_VISUAL_FIELDS for VISUAL FIELD at [facility] on 03/03/2024 at 01:00 PM MANJULA ELAM MD for RHEUM RECHECK at RHEUMATOLOGY on 10/19/2024 at 04:00 PM MANJULA ELAM MD [address] [place] [address], [phone] 01/21/2024 11:24:17 Molded Goods Spot Picker Consult Note : [facility] [address] [facility] [address]VALYF, Polly (Legal name: Bonnie Kam) (id #[id number], : 1965) [facility] [address] [place] [address] Encounter Summary - Progress Note Date Printed: [...] received this fax in error, please visit [email or web address] to notify the sender and confirm that the information will be destroyed. If you do not have internet access, please call to notify the sender and confirm that the information will be destroyed. Thank you for your attention and cooperation. [ID:[id number]] Patient Bonnie Humphrey (59yo, F) #[id number] 1965 Patient Demographics: Address [address] [place] [address] [address] [address] Work Phone Encounter Notes: Encounter Reason/Date 59y/o wf on Plaquenil returns complete eye exam, mac oct and hvf 10-2. no change in vision since last exam. no issues with road signs, TV scroll or fine print. no new eye concerns. gtts:none. Plaquenil 200 mg bid 5+ years AB eyes doing well 7-8 years on plaq no ne probs 02/23/02/23/02/23/ on pills 11/03/2024 - 11:00AM - [facility] History of Present IllnessNone [...] and person. Mental Status: affect normal. Procedure DocumentationOCT/Retina:Opti lesli Coherence Testing (OCT) of retina performed. See scanned document for detail.Visual Field Extended:Extended visual field examination performed. See scanned report for findings. Assessment and Plan1. Long-term drug therapy-no signs of toxicity discussed risks of plaquenil therapy mac normal oct mac normal vf normal 7-8 years of tx1 year oct mac, hvf Z79.899: Other director of front office (current) drug therapy glasses (Expiration Date: 11/03/2025)Right -Sph: +0.25Cyl: sphAxis: A dd: +2.50Left -Sph: -0.75Cyl: +1.00Axis: 180Add: +2.50 Return to Office OPHTH_VISUAL_FIELDS for VISUAL FIELD at [facility] on 11/03/2024 at 10:30 AM MANJULA ELAM MD for RHEUM RECHECK at RHEUMATOLOGY on 11/07/2024 at 09:00 AM to see TROY WEST MD for LEVEL 2 at [facility] on or around 11/03/2025 Patient Medical History: Allergies List Reviewed Allergies CODEINE Medications Reviewed Medications NameDate Source buPROPion HCL SR 100 mg tablet,12 hr sustained-releaseTAKE 1 TABLET BY MOUTH EVERY DAY04/22/24 filled surescripts busPIRone 10 mg xxpnno11/22/24 filled surescripts cholesterol 2.5 gram-28 kcal/10 gram oral powderApply to legs twice daily for 3 months.01/26/24 prescribed BRUCE FIGUEROA PA-C diclofenac potassium 50 mg tabletTAKE 1 TABLET BY MOUTH THREE TIMES A DAY WITH FOOD QXEKOQ52/16/25 renewed MANJULA ELAM MD estradioL 0.01% (0.1 mg/gram) vaginal cream08/09/23 filled surescripts hydroxychloroquine 200 mg tabletTAKE 2 TABLETS EVERY OTHER DAY ALTERNATING WITH 1 TABLET EVERY OTHER DAY08/07/24 renewed MANJULA ELAM MD levothyroxine 112 mcg tabletTAKE 1 TABLET BY MOUTH DAILY03/01/24 filled surescripts lovastatin 40 mg nillyd70/05/24 filled surescripts oseltamivir 75 mg pjjntxe39/20/25 filled surescripts promethazine-DM 6.25 mg-15 mg/5 mL oral syrup04/13/24 filled surescripts simvastatin 20 mg tabletTAKE 1 TABLET BY MOUTH EVERY DAY04/22/24 filled surescripts triamcinolone acetonide 0.1 % dental pasteapply topically to oral lesion three times daily12/15/23 filled surescripts valsartan 40 mg glejda24/15/25 filled surescripts Family HistoryReviewed Family History Mother - Cataract - Age related macular degeneration - dry Past Medical HistoryReviewed Past Medical History Glasses/Contacts:Y Vaccine HistoryVaccines not reviewed (last reviewed 10/19/2023) Vaccine Type Date Amt. Route Site [facility] Lot # Mfr. Exp. 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 COVID-19, mRNA, LNP-S, PF, 30 mcg/0.3 mL dose (SandataBioDinamundo) 05/31/20 0.3 mL [id number] Other water gas operator Diphtheria, Tetanus, Pertussis Tdap 06/10/24 0.5 mL Intramuscular Deltoid, Left PG3RP [employer] 09/01/26 Electronically Signed by: TROY WEST MD MANJULA MARILEE ELAM MD [address] [place] [address], [phone], [facility] 11/13/2024 13:03:15 Rheumatology Note : [address] [address]GMBVB, Polly (Legal name: Bonnie Humphrey) (id #[id number], : 1965) [address] [address] [address] Encounter Summary - Progress Note Date Printed: [...] received this fax in error, please visit [email or web address] to notify the sender and confirm that the information will be destroyed. If you do not have internet access, please call to notify the sender and confirm that the information will be destroyed. Thank you for your attention and cooperation. [ID:[id number]] Patient Bonnie Humphrey (59yo, F) #[id number] Patient Demographics: Address [address] [facility] [place] [address] Work Phone Encounter Notes: Encounter Reason/DateNone recorded 11/07/2024 - 09:00AM - RHEUMATOLOGY SB History of Present [id number] with degenerative arthritis and seronegative inflammatory arthritis. [...] HPI Vitals Ht: 5 ft 5 in Zcjais6011/07/2024 09:15 am Wt: 162 lbs With afljvvc4311/07/2024 09:19 am BMI: 2709 09:19 am BP: 110/74 sitting R arm11/07/2024 09:19 am BP Cuff Size: adult11/07/2024 09:15 am Pulse: 72 bpm wjywnat5711/07/2024 09:19 am RR: 1609 09:15 am O2Sat: [...] edema (Stable). Neurological Exam:Sensation:abnormal;Posi tive Tinel and Calvert. Procedure DocumentationNone recorded Assessment and Plan1. Body [...] days. Qty: (180) tablet Refills: 1 Pharmacy: [facility][id number] Note to Pharmacy: dose changed. 3. Seronegative [...] directed Qty: (135) tablet Refills: 3 Pharmacy: [facility] #[id number] Note to Pharmacy: 400mg alternate with 200 mg qod. 4. Long-term drug therapy- obtain labs to follow all the current medications. Needs eye examination to follow up on hydroxychloroquine, she will schedule the eye examination on her birthday month.Z79.899: Other detention (current) drug therapy CBC ESR, AUTOMATED CMP 5. Bilateral carpal tunnel syndrome-Clinical evidence of carpal tunnel syndrome. Suggested use of cock-up wrist braces at night for now. Reassess if it still symptomatic obtain nerve conduction studies.G56.03: Carpal tunnel syndrome, bilateral upper limbs Return to Office TROY WEST MD for LEVEL 2 at [facility] on 11/05/2025 at 10:00 AM OPHTH_VISUAL_FIELDS for VISUAL FIELD at [facility]MOLOGY [facility] on 11/05/2025 at 09:45 AM MANJULA ELAM MD for RHEUM RECHECK at RHEUMATOLOGY on 11/07/2025 at 04:00 PM Patient Medical History: Allergies List Allergies not reviewed (last reviewed 11/03/2024) CODEINE Medications Reviewed Medications NameDate Source buPROPion HCL SR 100 mg tablet,12 hr sustained-releaseTAKE 1 TABLET BY MOUTH EVERY DAY04/22/24 filled surescripts busPIRone 10 mg /22/24 filled surescripts cholesterol 2.5 gram-28 kcal/10 gram oral powderApply to legs twice daily for 3 months.01/26/24 prescribed BRUCE FIGUEROA PA-C diclofenac potassium 50 mg tabletTake 1 tablet(s) twice a day by oral route for 90 days.11/07/24 prescribed MANJULA ELAM MD estradioL 0.01% (0.1 mg/gram) vaginal cream08/09/23 filled surescripts hydroxychloroquine 200 mg tablettake as /16/25 prescribed MANJULA ELAM MD levothyroxine 112 mcg tabletTAKE 1 TABLET BY MOUTH DAILY03/01/24 filled surescripts lovastatin 40 mg xeofkm76/05/24 filled surescripts oseltamivir 75 mg aioyvtf91/20/25 filled surescripts promethazine-DM 6.25 mg-15 mg/5 mL oral syrup04/13/24 filled surescripts simvastatin 20 mg tabletTAKE 1 TABLET BY MOUTH EVERY DAY04/22/24 filled surescripts triamcinolone acetonide 0.1 % dental pasteapply topically to oral lesion three times daily12/15/23 filled surescripts valsartan 40 mg nlpvyd21/15/25 filled surescripts Family HistoryFamily History not reviewed (last reviewed 11/03/2024) Mother - Cataract - Age related macular degeneration - dry Past Medical HistoryPast Medical History not reviewed (last reviewed 11/03/2024) Arthritis:Y Vaccine HistoryVaccines not reviewed (last reviewed 10/19/2023) Vaccine Type Date Amt. Route Site [facility] Lot # Mfr. Exp. 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 Diphtheria, Tetanus, Pertussis Tdap 06/10/24 0.5 mL Intramuscular Deltoid, Left PG3RP [employer] 09/01/26 Electronically Signed by: MANJULA ELAM MD MANJULA ELAM MD [address] [place], [address], [facility] 11/13/2024 12:52:34 Procedures Surgical History Date Name Laterality Status Provider Name and Address Organization Details Recorded Time 025 OCT/Retina completed Malik Pride [facility] 11/03/2024 11:15:53 025 Visual Field Extended completed TROY WEST MD [address] [place] [address], [phone], [facility] 11/03/2024 12:18:15 024 DAK - Biopsy, [facility] 16:00:09 024 DAK - Cryo AK completed Kayliye Ozunalajoel [facility] 11/18/2023 10:36:03 024 OCT/Retina completed TROY WEST MD [address] [place] [address], [phone], [facility] 03/01/2023 15:25:28 024 Visual Field Extended completed TROY WEST MD [address] [place] [address], [phone], [facility] 03/01/2023 15:25:30 023 OCT/Retina completed TROY WEST MD [address] [place] [address], [phone], [facility] 02/26/2022 10:29:26 023 Visual Field Extended completed TROY WEST MD [address] [place] [address], [phone], [facility] 02/26/2022 10:29:27 021 OCT/Retina completed TROY WEST MD [address] [place] [address], [phone], [facility] 06/28/2020 15:11:00 021 Visual Field Extended completed TROY WEST MD [address] [place] [address], [phone], [facility] 06/28/2020 15:11:02 021 Electromyography (EMG) with Nerve Conduction Study (NCV) completed Yumiko Corley (Nicky) [facility] 2020 11:11:14 Carpal tunnel surgery completed Daija Baugh [facility] 05/10/2017 10:43:16 Removal of tonsils completed Daija molina [facility] 05/10/2017 10:43:25 Imaging Results None recorded. Procedure Notes None recorded. Medical Equipment None Reported. Allergies Allergen ID Allergen Name Allergen Category Reaction Reaction Severity Criticality Documentation Date Start Date Code Code System Note Provider Name and Address Organization Details Recorded Time 830328 codeine medicatio n Not available Not available Not available 02/18/2016 2670 RxNorm Mariah Kinsey jimi [facility] 6 10:18:00 Medications Name Sig Start [...] Avai lable Vitals Date Recorded Body height Body mass index (BMI) Body weight Respiratory rate Heart rate Oxygen saturation Oxygen saturation in Arterial blood by Pulse oximetry Systolic And Diastolic Provider Name and Address Organization Details Last Updated DateTime 4 165.1 cm 26 kg/m2 77724.8 1 g 16 /min 64 /min 97 % 97 % 110/78 mm[Hg] Randa Alicea [facility] 4 15:34:10 Date Recorded Body height Respiratory rate Body mass index (BMI) Body weight Oxygen saturation Oxygen saturation in Arterial blood by Pulse oximetry Heart rate Systolic And Diastolic Provider Name and Address Organization Details Last Updated DateTime 5 165.1 cm 16 /min 27 kg/m2 41983.9 6 g 98 % 98 % 72 /min 110/74 mm[Hg] Clay Canseco [facility] 5 09:19:49 Social History Question Answer Notes LastModified by Organizat ion Details LastModified Time Tobacco Smoking Status [facility] 14:25:09 How Much Tobacco Do You Chew? None [email or web address] Information not available 05/11/2018 Live Alone Or With Others? With Others Information not available 02/15/2020 Marital Status [email or web address] not available 02/15/2020 What Was The Date Of Your Most Recent Tobacco Screening? 11/07/2024 [email or web address] Information not available 11/07/2024 How Much Tobacco Do You Smoke? 0.5 PPD [email or web address] Information not available 05/11/2018 Has Tobacco Cessation Counseling Been Provided? No [email or web address] Information not available 05/11/2018 How Many Years Have You Smoked Tobacco? 10 [email or web address] Information not available 05/11/2018 Sex: Female Functional Status Question Answer Note LastModified by Organizat ion Details LastModified Time What is your level of alcohol consumption? None [email or web address] Information not available 05/10/2017 Do you or have you ever used smokeless tobacco? 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 Never used electronic cigarettes Information not available 11/14/2018 Mental Status None recorded. Family History Relationship Description Onset Age of this Age Resolved Age Notes LastModified by Organization Details LastModified Time Mother Cataract [email or web address] Not available 06/28/2020 14:24:53 Mother Age related macular degeneration dry [email or web address] Not available 09:46:46 Medical History Condition Response Emphysema N COPD N Diabetes N Bleeding Disorder N Arthritis Y Acid Reflux (GERD) N Asthma N High Cholesterol Y Heart Disease N Rheumatoid Arthritis N Hypertension N Glasses/Contacts Y Gynecological HistoryNo gynecological history recorded. Obstetrics History GPAL:G 0 P 0 0 0 0 Immunizations Vaccine Type Date Status Note Provider Nam e and Address Organization Details Recorded Time Tdap 06/10/2024 completed Not Available [facility] 11/07/2024 09:16:17 COVID-19, mRNA, LNP-S, PF, 30 mcg/0.3 mL dose 05/31/2020 completed Amy Newton [facility] 06/24/2020 10:41:04 COVID-19, mRNA, LNP-S, PF, 30 mcg/0.3 mL dose 06/21/2020 completed Amy Newton [facility] 06/24/2020 10:41:04 Past Encounters Encounter ID Performer Location Encounter Start Date Encounter Closed Date Diagnosis/Indication Diagnosis SNOMED-CT Code Diagnosis ICD10 Code Diagnosis IMO Codes Diagnosis Note [id number] MANJULA ELAM MD RHEUMATOL [facility] [address] [place] [phone] 02/18/2016 09:58:26 02/18/2016 10:39:52 Rheumatoid arthritis 93178545 M06.9 seems to have a very mild disease.Fu nctional class I.Good ROM and no active synovitis or effusions. 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 Seropositi ve rheumatoid arthritis 194643132 M05.9 [id number] MANJULA ELAM MD RHEUMATOL [facility] [address] [place] [phone] 05/18/2016 09:46:27 05/18/2016 11:20:11 Rheumatoid arthritis 08492466 M06.9 sero positive.s eems to have a very mild disease, some symptoms in hands, tenderness w/o synovitis. Remains in Functional class I.Good ROM and no active synovitis or effusions. No extra -articular manifestat ions noted. 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 Up the HCQ to 200 mg bid . [id number] MANJULA ELAM MD RHEUMATOL OGY [facility] [address] [place] [id number] 11/16/2016 10:36:12 11/16/2016 12:40:41 Rheumatoid arthritis 72627922 M06.9 sero positive.f airly stable.Rem ains in Functional class I. Good ROM and no active synovitis or effusions. No extra -articular manifestat ions noted. 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 Up the HCQ to 200 mg bid . Generalize d osteoarthritis 003162308 M15.9 with symptomati c hands and feet.would suggest to DC Etodolac, and start Diclofenac 50 mg bid [id number] MANJULA ELAM MD RHEUMATOL OGY [address] [address] 05/10/2017 10:18:00 05/10/2017 11:10:03 Rheumatoid arthritis 04119774 M06.9 sero positive and some symptoms in hands. some of this is acquired tenosynovi tis of the flexor tendon sheaths. aggravated by occupation . Remains in Functional class I.No extra -articular manifestat ions noted. 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 maintain the HCQ to 200 mg bid . Generalize d osteoarthritis 988611035 M15.9 with symptomati c hands and feet.would suggest to continue with the Diclofenac 50 mg bid to TID. [id number] MANJULA ELAM MD [address]HEUMATOL [address] [address] 11/08/2017 10:39:39 11/08/2017 11:51:30 Rheumatoid arthritis 01885793 M06.9 sero positive. symptoms in hands. plus elbows. Though no active synovitis. some of this is acquired tenosynovi tis of the flexor tendon sheaths. aggravated by occupation . Remains in Functional class I.No extra -articular manifestat ions noted. 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 maintain the HCQ to 200 mg bid . Generalize d osteoarthritis 396030908 M15.9 more of mechanical pains. symptomati c hands and feet.would suggest to continue with the Diclofenac 50 mg bid to TID. [id number] MANJULA ELAM MD RHEUMATOL OGY [address] [address] 05/11/2018 13:09:31 05/13/2018 10:01:12 Generalized osteoarthritis 420704386 M15.9 pleasant 53-year-ol d female with generalize d osteoarthr itis. Well maintained joint mobility. I do not see any indication s for corticoste roid injection and she can continue with the diclofenac potassium 50 mg up to 3 times a day as needed for pain. I did caution her about the use of diclofenac and empty stomach. Seronegati ve rheumatoid arthritis 256398932 M06.00 seronegati ve process, very well controlled . Does not have any active joints and lumbar fusion. Last studies were all stable. Maintain hydroxychl oroquine 200 mg twice a day. Long-term drug therapy 974716029 Z79.899 obtain labs to follow all the current medication s. Lateral epicondylitis 20 2441311 M77.12 patient has left lateral epicondyli tis. 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 I suggested to her to work on local care including moist heat applicatio n and use of elbow sleeve especially while painting. We decided to hold off on corticoste roid injection. Certainly she can call me if her symptoms do not improve or steroid injection. [id number] MANJULA ELAM MD RHEUMATOL [facility] [address] [place] [address] 11/14/2018 09:55:47 11/14/2018 10:18:04 Body mass index 25-29 - overweight 765501420 Z68.26 talked about weight and exercise. She has a good diet program and she'll continue to follow that. Generalize d osteoarthritis 114646794 M15.9 chronic generalize d osteoarthr itis, under [...] and empty stomach. Seronegati ve rheumatoid arthritis 216399290 M06.00 seronegati ve process, very well controlled . Does not have any active joints synovitis or effusions. Maintain hydroxychl oroquine 200 mg twice a day. She does need to have an eye examinatio n once a year. Reminder is given to the patient. Long-term drug therapy 053508128 Z79.899 obtain labs to follow all the current medication s. Hyperlipidemia 47201334 E78.5 she has chronic hyperlipid emia and is now off the statins. I would like to obtain fasting lipid panel specially as she is also a rheumatoid patient which does increase the cardiovasc ular risk. I'll contact her after reviewing the lipid panel [id number] MANJULA ELAM MD RHEUMATOL [facility] [address] [place] [address] 05/01/2019 09:11:20 05/01/2019 09:49:18 Trochanteric bursitis of right hip 8417075572 06347 M70.61 53-year-ol d female seen today as a routine follow-up. She has right lateral hip pain consistent with trochanter ic pain syndrome. The hip joint itself looks stable. No radiculopa thy noted. Discussed with the patient. I suggested physical therapy evaluation . Hold off on steroid injection for now. Body mass index 25-29 - overweight 107250224 Z68.26 importance of diet and exercise reviewed. Generalize d osteoarthritis 257897949 M15.9 chronic generalize d osteoarthr itis, under well control. She manages a good exercise program as well as weight watch. maintain regular exercise and continue with the diclofenac potassium 50 mg up to 3 times a day as needed for pain. I did caution her about the use of diclofenac and empty stomach. Seronegati ve rheumatoid arthritis 548547750 M06.00 seronegati ve process, very well controlled . Does not have any active joints synovitis or effusions. Maintain hydroxychl oroquine 200 mg twice a day. she is up-to-date with eye examinatio n Long-term drug therapy 175579263 Z79.899 obtain labs to follow all the current medication s. [id number] MANJULA ELAM MD RHEUMATOL [facility] [address] [place] [address] 10/31/2019 08:05:55 10/31/2019 10:51:55 Body mass index 25-29 - overweight 676614142 Z68.26 importance of diet and exercise reviewed. Generalize d osteoarthritis 071700431 M15.9 chronic generalize d osteoarthr itis, under well control. She manages a good exercise program as well as weight watch. she will maintain regular exercise and continue with the diclofenac potassium 50 mg up to 3 times a day as needed for pain. I did caution her about the use of diclofenac with empty stomach. Refills given. Seronegati ve rheumatoid arthritis 093716277 M06.00 seronegati ve process, stable. Clinically , I did not see any active joints synovitis or effusions. Maintain hydroxychl oroquine 200 mg twice a day. she is up-to-date with eye examinatio n Paresthesia 61245688 R20 .2 she has paresthesi as in both hands and feet. She has a history of carpal tunnel syndrome. Had surgery. I would like her to have an evaluation with a neurologis t. Long-term drug therapy 201476828 Z79.899 obtain labs to follow all the current medication s. [id number] CHUY BUTT MD NEUROLOGY [facility] [address] [place] [address] 02/15/2020 10:31:46 02/15/2020 11:40:11 Paresthesia 70698622 R20.2 54 yo woman with seronegati ve [...] - schedule EMG BUE, BLE with Kira [id number] [facility] [address] [place] [address] 05/01/2020 11:40:40 05/01/2020 12:25:25 Body mass index 25-29 - overweight 933524090 Z68.26 she is doing very well. Working on her diet and exercise Generalize d osteoarthritis 855032189 M15.9 chronic disease. Stable range of motion. Stable muscle strength. she will maintain regular exercise and continue with the diclofenac potassium 50 mg up to 3 times a day as needed for pain. I did caution her about the use of diclofenac with empty stomach. Refills given. Seronegati ve rheumatoid arthritis 087518942 M06.00 seronegati ve process,Ch ronic disease in clinical stable. No evidence of synovitis noted. No effusion noted. maintain hydroxychl oroquine 200 mg twice a day. she is up-to-date with eye examinatio n Long-term drug therapy 926575311 Z79.899 obtain labs to follow all the current medication s. Needs eye examinatio n to follow up on hydroxychl oroquine [id number] CHUY BUTT MD NEUROLOGY [facility] [address] [place] [address] 2020 09:50:41 2020 11:03:04 Small fiber neuropathy 727238064 G62.89 Carpal shira felicita syndrome of left wrist 4134887488 47363 G56.02 Skin sensa tion disturbance 90029670 R20.9 [id number] TROY WEST MD OPHTHALMO [address] [address] 06/28/2020 13:48:24 06/28/2020 15:47:20 Long-term drug therapy 308649984 Z79.899 max daily dose for current body weight is 352mg/day rec decreasing dose to reduce risk of vision loss discussed risks of plaquenil therapy mac normal oct mac normal vf normal 3 years of tx rec repeat testing in 2022 [id number] MANJULA MARILEE ELAM MD RHEUMATOL OGY [facility] [address] [place] [address] 10/29/2020 15:43:42 10/30/2020 09:03:11 Body mass index 25-29 - overweight 523020669 Z68.26 she is doing very well. Working on her diet and exercise Generalize d osteoarthritis 920634487 M15.9 chronic disease. Clinically stable. Stable proximal and distal muscle strength. No sensory deficits noted. Physiologi c cardiopulm onary examinatio n. she will maintain regular exercise and continue with the diclofenac potassium 50 mg up to 3 times a day as needed for pain. I did caution her about the use of diclofenac with empty stomach. Refills given. Seronegati ve rheumatoid arthritis 196260313 M06.00 seronegati ve rheumatoid arthritis and clinically stable. Intact active and passive range of motion. Normal physiologi c systemic exam. She has done very well on hydroxychl oroquine at 400 mg once a day in divided doses. She can try to alternate 400 mg with 200 mg every other day. Eye examinatio n is up-to-date . Long-term drug therapy 844991877 Z79.899 obtain labs to follow all the current medication s. Needs eye examinatio n to follow up on hydroxychl oroquine Trochanter ic bursitis of right hip 4763990076 39410 M70.61 55-year-ol d female chronic trochanter ic bursitis. Agree with the stretching exercises. Also encouraged moist heat applicatio n. [id number] MANJULA ELAM MD RHEUMATOL OGY [facility] [address] [place] [address] 05/13/2021 15:38:22 05/14/2021 11:43:19 Body mass index 25-29 - overweight 566826522 Z68.26 she is doing very well. Working on her diet and exercise Generalize d osteoarthritis 278135202 M15.9 chronic disease. Stable exam. Intact range [...] months Refills given. Seronegati ve rheumatoid arthritis 098481921 M06.00 56-year-ol d with seronegati ve rheumatoid arthritis and clinically stable.Sta ble exam without any active disease. Intact active and passive range of motion. Normal physiologi c systemic exam.Sugge sted her to reduce the dose of hydroxychl oroquine to 400 mg alternate with 200 mg every other day based on her body weight. Continue with the eye examinatio n. Long-term drug therapy 795340853 Z79.899 obtain labs to follow all the current medication s. Needs eye examinatio n to follow up on hydroxychl oroquine [id number] MANJULA ELAM MD [address]HEUMATOL [address] [address] 01/12/2022 15:19:52 01/13/2022 14:40:41 Body mass index 25-29 - overweight 970773718 Z68.26 she is doing very well. Working on her diet and exercise most recent BMI is 26.1 Generalize d osteoarthritis 220067695 M15.9 Generalize d osteoarthr itis. Has done very well. Stable musculoske letal exam. Normal strength. No motor or sensory deficits. Suggested to maintain the use of diclofenac 50 mg twice a day with meals. Maintain low-carb diet. Encouraged fruits and vegetables intake and restrict red meat. Refills given. Seronegati ve rheumatoid arthritis 648828357 M06.00 56-year-ol d with seronegati ve rheumatoid arthritis and clinically stable.Sta ble exam without any active disease. Intact active and passive range of motion. Normal physiologi c systemic exam.Katy nue with hydroxychl oroquine 400 mg alternate with 200 mg every other day. Suggested to follow-up with an eye examinatio n every 12 months. Refills given. Long-term drug therapy 967562762 Z79.899 obtain labs to follow all the current medication s. Needs eye examinatio n to follow up on hydroxychl oroquine, she will schedule the eye examinatio n on her birthday month. [id number] TROY WEST MD OPHTHALMO LOGMattie [address] ,[address] [place] [address] 02/26/2022 09:04:25 02/26/2022 12:18:00 Long-term drug therapy 491078240 Z79.899 no signs of toxicity max daily dose for current body weight is 359g/day - okay to continue current dose discussed risks of plaquenil therapy mac normal oct mac normal vf normal 5 years of tx1 year oct mac, hvf [id number] TROY WEST MD OPHTHALMO [facility] [address] [place] [address] 03/01/2023 13:36:56 03/01/2023 15:43:22 Long-term drug therapy 490494971 Z79.899 no signs of toxicity max daily dose for current body weight is 347g/day - okay to continue current dose discussed risks of plaquenil therapy mac normal oct mac normal vf normal 6 years of tx1 year oct mac, hvf [id number] MANJULA ELAM MD RHEUMATOL OGY [facility] [address] [place] [address] 04/20/2023 14:19:40 04/21/2023 14:37:37 Body mass index 25-29 - overweight 657132249 Z68.26 she is doing very well. Working on her diet and exercise most recent BMI is 26.1 Generalize d osteoarthritis 202800079 M15.9 Generalize d osteoarthr itis. Has done very well. She has maintain good physical activity, exercise and weight loss program. Suggested to maintain the use of diclofenac 50 mg twice a day with meals as needed. Maintain low-carb diet. Encouraged fruits and vegetables intake and restrict red meat. Refills given. Seronegati ve rheumatoid arthritis [id number] M06.00 57-year-ol d with seronegati ve rheumatoid arthritis and clinically stable.She is doing very well. No active synovitis or effusion. Range of motion is intact. Strength is physiologi c. Continue with hydroxychl oroquine 400 mg alternate with 200 mg every other day. Suggested to follow-up with an eye examinatio n every 12 months. Refills given. follow up in the fall Long-term drug therapy [id number] Z79.899 obtain labs to follow all the current medication s. Needs eye examinatio n to follow up on hydroxychl oroquine, she will schedule the eye examinatio n on her birthday month. [id number] MANJULA ELAM MD RHEUMATOL [facility] [address] [place] [address] 10/19/2023 15:21:24 10/21/2023 13:24:35 Body mass index 25-29 - overweight [id number] Z68.26 she is doing very well. Working on her diet and exercise most recent BMI is 26.1 Generalize d osteoarthritis [id number] M15.9 Generalize d osteoarthr itis. Has done very well. She has maintain good physical activity, exercise and weight loss program. Suggested to maintain the use of diclofenac 50 mg twice a day with meals as needed. Maintain low-carb diet. Encouraged fruits and vegetables intake and restrict red meat. Refills given. Seronegati ve rheumatoid arthritis [id number] M06.00 58-year-ol d with seronegati ve rheumatoid arthritis and clinically stable.She is doing very well. No active synovitis or effusion. Range of motion is intact. Strength is physiologi c. Continue with hydroxychl oroquine 400 mg alternate with 200 mg every other day. Suggested to follow-up with an eye examinatio n every 12 months. Refills given. follow up in the fall Long-term drug therapy [id number] Z79.899 obtain labs to follow all the current medication s. Needs eye examinatio n to follow up on hydroxychl oroquine, she will schedule the eye examinatio n on her birthday month. Bilateral carpal tunnel syndrome [id number] G56.03 Clinical evidence of carpal tunnel syndrome. Suggested use of cock-up wrist braces at night for 6 weeks. Reassess if it still symptomati c obtain nerve conduction studies. [id number] EMETERIO TO [address] [address] 11/18/2023 09:30:07 11/18/2023 11:12:01 Actinic keratosis [id number] L57.0 Precancero us lesion(s). Will LN2 today.Can leave a white discolorat ion in the areas when LN2 is performed. Discussed biopsying lesions if they do not resolve after [id number]- up if lesion(s) persists or do not resolve. Follow up in 2 months for a recheck. [id number] BRUCE FIGUEROA PA-C [address] [address] 01/17/2024 15:04:04 01/17/2024 16:05:36 Neoplasm of uncertain behavior of skin [id number] D48.5 Biopsies recommende d today.- Verbal consent [...] ses.Will discuss treatments further pending biopsy results. [id number] TROY WEST MD OPHTHALMO LOGY [address] [address] 11/03/2024 10:43:39 11/03/2024 12:19:43 Long-term drug therapy [id number] Z79.899 no signs of toxicity discussed risks of plaquenil therapy mac normal oct mac normal vf normal 7-8 years of tx1 year oct mac, hvf [id number] MANJULA ELAM MD RHEUMATOL [facility] [address] [place] [address] 11/07/2024 09:13:52 11/13/2024 17:09:30 Body mass index 25-29 - overweight [id number] Z68.26 she is doing very well. Working on her diet and exercise most recent BMI is 27 Generalize d osteoarthritis [id number] M15.9 Generalize d osteoarthr itis. Has done very well. She has maintain good physical activity, exercise and weight loss program.[place] ggested to maintain the use of diclofenac 50 mg twice a day with meals as needed. Maintain low-carb diet. Encouraged fruits and vegetables intake and restrict red meat. Refills given. Seronegati ve rheumatoid arthritis [id number] M06.00 59-year-ol d with seronegati ve rheumatoid [...] 12 months. Refills given. Long-term drug therapy [id number] Z79.899 obtain labs to follow all the current medication s. Needs eye examinatio n to follow up on hydroxychl oroquine, she will schedule the eye examinatio n on her birthday month. Bilateral carpal tunnel syndrome [id number] G56.03 Clinical evidence of carpal tunnel syndrome. [...] Member ID Barry Member ID Guarantor Name 11/13/2024 1 [employer] [id number] Dangelo Humphrey [id number] Bonnie Humphrey Notes Date Note Type Note Provider Name and Address Organization Details Recorded Time 4 text/html ROS as noted in the HPI 57-year-old with degenerative arthritis and seronegative inflammatory [...] Participating in [place] [address] [place] [address], [address], [facility] 10/19/2023 16:22:58 4 text/html ROS as noted in the HPI I have spots of concernLocation: face, arms. legsReports: dry, rough spots. Spot on nose keeps flaking off and coming back No history of skin cancerNew patient BRUCE FIGUEROA PA-C [address] [place], [address], [facility] 11/21/2023 08:42:22 4 text/html ROS as noted in the HPI I am following up with AK'sLocation: face, arms, legsTx: [id number]: Spot on L foot and bilateral lower legs need refrozen, Spots on arms and face have no returned. BRUCE FIGUEROA PA-C [address] [place], [address], [facility] 01/18/2024 07:59:23 5 text/html ROS as noted in the HPI [...] eye exam last week. MANJULA ELAM MD [address] [facility] [place], [address], [facility] 11/08/2024 08:23:05 OBGyn Episode No OBEpisode recorded.
== END 2024-12-19 23:59 | disposition home or self-care (01) ==
LOC: RAD 16:58
PROVIDERS: PCP Nurse Practitioner Family; Referring Provider Nurse Practitioner Family; Visit Provider Nurse Practitioner Family
DX: Z12.31 Encounter for screening mammogram for malignant neoplasm of breast (principal); R92.323 Mammographic fibroglandular density, bilateral breasts
CPT/HCPCS: 77063; 77067